=== PATIENT | male | born 1965 | race Caucasian/White ===

== ENCOUNTER 2017-06-27 17:47 | Inpatient (IN) | payer OTHER ==
--- NOTE | 2017-06-27 17:56 | PDOC ---
Rapid Medical Evaluation Time Seen by Provider: 06/27/17 17:50 Medical Evaluation: Allergies Allergy/AdvReac Type Severity Reaction Status Date / Time No Known Allergies Allergy Verified 08/21/16 17:32 06/27/17 17:51 I have performed a brief in-person evaluation of this patient. The patient presents with a chief complaint of: Sent in by PMD, Dr Vee, for admission for IV abx for LLE cellulitis. Pt noticed pain and erythema to LLE this am. No f/c. No recent trauma. H/o NIDDM, chronic wound on plantar aspect of L great toe, Started on augmentin today, took 1 dose so far Pertinent physical exam findings: T of 99.3 w/ HR of 126, NAD, LLE diffusely erythematous/warm and tender, no blister/crepitus. L great toe w/ dressing in place I have ordered the following: labs/xr The patient will proceed to the ED for further evaluation.
[2017-06-27 18:13] LABS: BASO % 0.2 % (0-2.0); EOS % 0.1 % (0-4.5); HEMATOCRIT 46.7 % (35.4-49); HEMOGLOBIN 16.3 GM/dL (11.7-16.9); LYMPH % 7.2 % (8-40); MCH 30.2 pg (25.7-33.7); MCHC 34.9 g/dl (32.0-35.9); MEAN CELL VOLUME 86.7 fl (80-96); MEAN PLT VOLUME 8.1 fl (7.5-11.1); MONO % 8.2 % (3.8-10.2); NEUT % 84.3 % (42.8-82.8); PLATELET COUNT 239 K/MM3 (134-434); RBC 5.38 M/mm3 (4.00-5.60); RDW 13.3 % (11.9-15.9); WHITE BLOOD COUNT 18.3 K/mm3 (4.0-10.0)
[2017-06-27 18:45] LABS: ALBUMIN 3.4 g/dl (3.4-5.0); ALK PHOS 74 U/L (45-117); ANION GAP 14 (8-16); BILIRUBIN,TOTAL 1.9 mg/dL (0.2-1.0); BLOOD UREA NITROGEN 24 mg/dL (7-18); CALCIUM 8.4 mg/dL (8.5-10.1); CHLORIDE 92 mmol/L (98-107); CO2 26 mmol/L (21-32); CREATININE 1.5 mg/dL (0.7-1.3); GLUCOSE,RANDOM 249 mg/dL (74-106); POTASSIUM 4.5 mmol/L (3.5-5.1); SGOT/AST 22 U/L (15-37); SGPT/ALT 35 U/L (12-78); SODIUM 132 mmol/L (136-145); TOT PROT 7.3 g/dl (6.4-8.2)
--- NOTE | 2017-06-27 18:57 | PDOC ---
Attending Attestation - Resident Resident Name: Paige Bryan - ED Attending Attestation I have performed the following: I have examined & evaluated the patient, The case was reviewed & discussed with the resident, I agree w/resident's findings & plan, Exceptions are as noted - HPI HPI: 52 yo M history DM sent by podiatry for admission. He has history of wound to L great toe, states that today he suddenly developed redness to the L lower leg with pain and swelling. No trauma. - Physicial Exam PE: GENERAL: Awake, alert, and fully oriented, in no acute distress HEAD: No signs of trauma EYES: PERRLA, EOMI, sclera anicteric, conjunctiva clear ENT: Auricles normal inspection, hearing grossly normal, nares patent, oropharynx clear without exudates. Moist mucosa NECK: Normal ROM, supple, no lymphadenopathy, JVD, or masses LUNGS: Breath sounds equal, clear to auscultation bilaterally. No wheezes, and no crackles HEART: Tachycardic, normal S1 and S2, no murmurs, rubs or gallops ABDOMEN: Soft, nontender, normoactive bowel sounds. No guarding, no rebound. No masses EXTREMITIES: Normal range of motion, 1+ pitting edema to RLE, 2+ pitting edema with erythema to LLE, +tenderness to LLE. No clubbing or cyanosis. No cords. NEUROLOGICAL: Cranial nerves II through XII grossly intact. Normal speech, normal gait SKIN: Warm, Dry, normal turgor, no rashes. L great toe with malodorous lesion to medial surface, no active drainage. +Macerated tissue. - Medical Decision Making Pt sent by podiatry for LLE cellulitis, will require admission for IV abx.
--- NOTE | 2017-06-27 19:46 | PDOC ---
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 Vee for IV antibiotics for red, swollen, hot right calf in the setting of right plantar hallux ulcer. He notes two days of subjective fever and chills, then he abruptly awoke this morning with right calf, ankle, and foot pain up to 10/10 and burning, worsened with walking or any weight bearing. He has been having a callus on his left great toe debrided by Dr. Vee. The patient otherwise denies any recent symptoms. He has not had recent surgery or immobilization, and has no h/o blood clotting disorders. He denies known h/o MRSA infections. He has had one similar skin infection before, many years ago, which felt the same as his current symptoms. Past History - Past Medical History Allergies/Adverse Reactions: Allergies Allergy/AdvReac Type Severity Reaction Status Date / Time No Known Allergies Allergy Verified 08/21/16 17:32 Home Medications: Ambulatory Orders Lovastatin 40 mg PO DAILY 08/21/16 Metformin HCl [Metformin HCl ER] 1,000 mg PO BID 08/21/16 Montelukast Na [Singulair -] 10 mg PO HS 08/21/16 Quinapril HCl [Accupril] 40 mg PO DAILY 08/21/16 Saxagliptin HCl [Onglyza] 5 mg PO DAILY 08/21/16 Glimepiride 2 mg PO DAILY 06/27/17 Asthma: Yes COPD: No Diabetes: Yes HTN: Yes Hypercholesterolemia: Yes - Suicide/Smoking/Psychosocial Hx Smoking History: Never smoked Review of Systems - Review of Systems Able to Perform ROS?: Yes Constitutional: Yes: Chills, Fever. No: Unexplained wgt Loss HEENTM: No: Nose Congestion, Throat Pain Respiratory: No: Cough, Shortness of Breath Cardiac (ROS): No: Chest Pain, Palpitations ABD/GI: No: Constipated, Diarrhea, Nausea, Vomiting : No: Burning, Dysuria Musculoskeletal: Yes: Other (left lower leg and ankle pain/swelling). No: Back Pain, Neck Pain Integumentary: Yes: Erythema. No: Bruising Neurological: No: Headache, Numbness, Tingling, Weakness, Dizziness Endocrine: No: Unexplained Weight Gain, Unexplained Weight Loss *Physical Exam - Vital Signs Last Vital Signs Temp Pulse Resp BP Pulse Ox 99.3 F 126 H 18 167/94 99 06/27/17 17:53 06/27/17 17:53 06/27/17 17:53 06/27/17 17:53 06/27/17 17:53 - Physical Exam General Appearance: Yes: Nourished, Appropriately Dressed, Obese, Other (Alert, appropriately, friendly adult gentleman who is conversive and answers questions appropriately). No: Apparent Distress HEENT: positive: EOMI, Normal Voice, Hearing Grossly Normal. negative: Scleral Icterus (R), Scleral Icterus (L), Nasal Congestion Neck: positive: Trachea midline, Supple. negative: Tender, Rigid Respiratory/Chest: positive: Lungs Clear, Normal Breath Sounds. negative: Respiratory Distress, Crackles, Rhonchi, Stridor, Wheezing Cardiovascular: positive: Regular Rhythm, Regular Rate. negative: Murmur Vascular Pulses: Dorsalis-Pedis (R): 2+, Doralis-Pedis (L): 2+ Gastrointestinal/Abdominal: positive: Normal Bowel Sounds, Soft, Protuberent. negative: Tender, Organomegaly, Pulsatile Mass, Guarding Musculoskeletal: positive: Normal Inspection. negative: Decreased Range of Motion, Vertebral Tenderness Extremity: positive: Normal Capillary Refill, Normal Inspection, Normal Range of Motion. negative: Tender, Cyanosis Integumentary: positive: Normal Color, Dry, Warm, Other (circumferential warmth tenderness and erythema from left ankle extending [address] to the right knee, left plantar hallux with 3x3cm ulceration with large granulation tissue, no active drainage or bleeding, nonmalodorous). negative: Rash, Bruising Neurologic: positive: chronic manager II-XII NML intact, Fully Oriented, Alert, Normal Mood/ Affect, Normal Response, Motor Strength 5/5 ED Treatment Course - LABORATORY CBC & Chemistry Diagram: 06/27/17 18:06 06/27/17 18:06 - ADDITIONAL ORDERS Additional order review: Laboratory Results 06/27/17 18:06 Sodium 132 L Potassium 4.5 Chloride 92 L Carbon Dioxide 26 Anion Gap 14 BUN 24 H Creatinine 1.5 H Creat Clearance w eGFR 48.77 Random Glucose 249 H Calcium 8.4 L Total Bilirubin 1.9 H AST 22 ALT 35 Alkaline Phosphatase 74 Total Protein 7.3 Albumin 3.4 06/27/17 18:06 RBC 5.38 MCV 86.7 MCHC 34.9 RDW 13.3 MPV 8.1 Neutrophils % 84.3 H Lymphocytes % 7.2 L Monocytes % 8.2 Eosinophils % 0.1 Basophils % 0.2 Medical Decision Making - Medical Decision Making 52 YOM with h/o NIDDM HTN HLD presents instructed by his pipe fitter maintenance for LLE redness/warmth/pain. Substance Abuse Technician instructed him to be admitted for IV antibiotics. On exam he is afebrile, tachycardic but otherwise VS wnl. Alert, conversive, pleasant, NAD, but obvious LLE erythema which is ttp, warm, painful repositioning. Patient also has dressing present left hallux with underlying 3x3cm ulceration, minimal drainage, nonmalodorous. DDX IBNLT cellulitis, osteomyelitis, necrotizing soft tissue infection, sepsis, etc. 06/27/17 20:48 Patient now with fever; lactate ordered. 06/27/17 23:36 WBC 18.3, lactate 2.1, BG 249. Patient given IVF, vancomycin, Zosyn, Ofirmev. [facility] microblogged and admits patient to IP med/surg to Dr. Roberson. *DC/Admit/Observation/Transfer Diagnosis at time of Disposition: THELMA (acute kidney injury) Cellulitis Qualifiers: Site of cellulitis: extremity Site of cellulitis of extremity: lower extremity Laterality: left Qualified Code(s): L03.116 - Cellulitis of left lower limb Sepsis Qualifiers: Sepsis type: sepsis due to unspecified organism Qualified Code(s): A41.9 - Sepsis, unspecified organism Diabetic foot ulcer Qualifiers: Diabetic foot ulcer location: toe Diabetes mellitus type: other specified ( including STACEY) Laterality: left Non-pressure ulcer stage: unspecified non- pressure ulcer stage Qualified Code(s): E13.621 - Other specified diabetes mellitus with foot ulcer; L97.529 - Non-pressure chronic ulcer of other part of left foot with unspecified severity; L97.529 - Non-pressure chronic ulcer of other part of left foot with unspecified severity; L97.529 - Non-pressure chronic ulcer of other part of left foot with unspecified severity; L97.529 - Non-pressure chronic ulcer of other part of left foot with unspecified severity - Discharge Dispostion Condition at time of disposition: Guarded Admit: Yes - Referrals Referrals: ON STAFF,NOT [Primary Care Provider] - - Patient Instructions - Post Discharge Activity
[2017-06-27] MEDS ORDERED: PIPERACIL/TAZOB 3.375 GM 3.375 GM/50 ML PREMIX IVPB ONE (20:40)
[2017-06-27] MEDS ORDERED: ACETAMINOPHEN 1000 MG/100 ML VIAL (NON FORMULARY) IVPB ONE (20:40)
[2017-06-27] MEDS ORDERED: VANCOMYCIN 2,000 MG in DEXTROSE 5%-WATER - 500 ML IVPB ONE (20:47)
[2017-06-27] MEDS ORDERED: SODIUM CHLORIDE 0.9% 1000 ML INFUS.BAG IV STA (20:50)
[2017-06-27] MEDS ORDERED: ACETAMINOPHEN INJECTION 100 ML IVPB ONE (20:53)
[2017-06-27] MEDS ORDERED: PIPERACILLIN/TAZOB 3.375 GM 3.375 GM in DEXTROSE 5%-WATER - 50 ML IVPB ONE (21:00)
[2017-06-27] MEDS ORDERED: PIPERACILLIN/TAZOB 3.375 GM 3.375 GM/50 ML BAG IVPB ONE (21:18)
[2017-06-27 21:29] LABS: INR 1.38 (0.82-1.09); PROTHROMBIN TIME (PATIENT) 15.6 SEC (9.98-11.88)
--- NOTE | 2017-06-28 01:28 | HP ---
CHIEF COMPLAINT: PCP: HISTORY OF PRESENT ILLNESS: The patient is 52 yo m w/ PMH DM, HTN, asthma and HLD who was sent by his supervisor winding department, Dr. Vee, for a red, swollen, hot right calf in the setting of left toe ulcer. The patient states that he awoke this morning to find that his left calf, foot and ankle was swollen, warm, red and tender. In addition to this , he also endorses subjective fever and chills for the past 1 day. The patient describes the pain as 10/10 in intensity, burning, and exacerbated by walking or weight bearing. The patient follows w/ Dr. Vee every 2 weeks for debridement of a chronic callus on his left great toe. He has had one similar skin infection before, "many years ago" and feels that his current symptoms are similar to those he felt during that episode. ER course was notable for: (1) Temp. 102.8, Heart rate 126, WBC 18.3 (2) CXR, foot XR (3) Recent Travel: none PAST MEDICAL HISTORY: see hPI PAST SURGICAL HISTORY: none Social History: Smoking: denies Alcohol: socially Drugs: denies Family History: non-contributory Allergies No Known Allergies Allergy (Verified 08/21/16 17:32) HOME MEDICATIONS: Home Medications Medication Instructions Recorded Lovastatin 40 mg PO DAILY 08/21/16 Metformin HCl [Metformin HCl ER] 1,000 mg PO BID 08/21/16 Montelukast Na [Singulair -] 10 mg PO HS 08/21/16 Quinapril HCl [Accupril] 40 mg PO DAILY 08/21/16 Saxagliptin HCl [Onglyza] 5 mg PO DAILY 08/21/16 Glimepiride 2 mg PO DAILY 06/27/17 REVIEW OF SYSTEMS CONSTITUTIONAL: Absent: diaphoresis, generalized weakness, malaise, loss of appetite, weight change HEENT: Absent: rhinorrhea, nasal congestion, throat pain, throat swelling, difficulty swallowing, mouth swelling, ear pain, eye pain, visual changes CARDIOVASCULAR: Absent: chest pain, syncope, palpitations, irregular heart rate, lightheadedness RESPIRATORY: Absent: cough, shortness of breath, dyspnea with exertion, orthopnea, wheezing, stridor, hemoptysis GASTROINTESTINAL: Absent: abdominal pain, abdominal distension, nausea, vomiting, diarrhea, constipation, melena, hematochezia GENITOURINARY: Absent: dysuria, frequency, urgency, hesitancy, hematuria, flank pain, genital pain MUSCULOSKELETAL: Absent: myalgia, arthralgia, joint swelling, back pain, neck pain SKIN: Absent: itching, pallor HEMATOLOGIC/IMMUNOLOGIC: Absent: easy bleeding, easy bruising, lymphadenopathy, frequent infections ENDOCRINE: Absent: unexplained weight gain, unexplained weight loss, heat intolerance, cold intolerance NEUROLOGIC: Absent: headache, focal weakness or paresthesias, dizziness, unsteady gait, seizure, mental status changes, bladder or bowel incontinence PSYCHIATRIC: Absent: anxiety, depression, suicidal or homicidal ideation, hallucinations. PHYSICAL EXAMINATION Vital Signs - 24 hr 06/27/17 06/27/17 06/28/17 17:53 20:48 01:14 Temperature 99.3 F 102.8 F H 98.0 F Pulse Rate 126 H Pulse Rate [ 126 H 82 Apical] Respiratory 18 20 16 Rate Blood Pressure 167/94 Blood Pressure 133/77 130/72 [Left Arm] O2 Sat by Pulse 99 97 Oximetry (%) GENERAL: Awake, alert, and fully oriented, in no acute distress. HEAD: Normal with no signs of trauma. LUNGS: Breath sounds equal, clear to auscultation bilaterally. No wheezes, and no crackles. No accessory muscle use. HEART: Regular rate and rhythm, normal S1 and S2 without murmur, rub or gallop. ABDOMEN: Soft, nontender, not distended, normoactive bowel sounds, no guarding, no rebound, no masses. No hepatomegaly or splenomegaly. LOWER EXTREMITIES: 2+ pulses, warm, well-perfused. No calf tenderness. 1+ peripheral edema. NEUROLOGICAL: Cranial nerves II-X intact. Normal speech. SKIN: Warm, dry. There is warmth, erythema, redness and swelling over the left foot, ankle and calf. There is an area of broken down skin along the plantar surface of the left great toe with a callus in the center of it. The area immediately surrounding the broken skin is not erythematous. Laboratory Results - last 24 hr 06/27/17 06/27/17 06/27/17 18:06 18:06 21:00 WBC 18.3 H RBC 5.38 Hgb 16.3 Hct 46.7 MCV 86.7 MCH 30.2 MCHC 34.9 RDW 13.3 Plt Count 239 MPV 8.1 Neutrophils % 84.3 H Lymphocytes % 7.2 L Monocytes % 8.2 Eosinophils % 0.1 Basophils % 0.2 PT with INR 15.60 H INR 1.38 H Sodium 132 L Potassium 4.5 Chloride 92 L Carbon Dioxide 26 Anion Gap 14 BUN 24 H Creatinine 1.5 H Creat Clearance w eGFR 48.77 Random Glucose 249 H Lactic Acid Calcium 8.4 L Total Bilirubin 1.9 H AST 22 ALT 35 Alkaline Phosphatase 74 Total Protein 7.3 Albumin 3.4 06/27/17 21:00 WBC RBC Hgb Hct MCV MCH MCHC RDW Plt Count MPV Neutrophils % Lymphocytes % Monocytes % Eosinophils % Basophils % PT with INR INR Sodium Potassium Chloride Carbon Dioxide Anion Gap BUN Creatinine Creat Clearance w eGFR Random Glucose Lactic Acid 2.1 H Calcium Total Bilirubin AST ALT Alkaline Phosphatase Total Protein Albumin ASSESSMENT/PLAN: The patient is a 52 yo m w/ PMH DM, HTN, HLD who is being admitted for sepsis 2/ 2 cellulitis #Sepsis 2/2 cellulitis likely 2/2 DM foot ulcer -s/p Vancomycin, zosyn in ED -s/p 2L NS in ED -NS @ 75 -will continue w/ Zosyn 3.375g Q6 -ID consult #DM -hold oral hypoglycemics -ISS ACHS -BGM ACHS #HTN -c/w home accupril #asthma -c/w home moteleukast -nebs PRN #possible THELMA; unknown baseline -NS@75 #FEN -NS @ 75 -lytes wnl -diabetic diet #Prophy -hep sq 5ku TID #Dispo -admit to med-surg Visit type - Emergency Visit Emergency Visit: Yes ED Registration Date: 06/27/17 Care time: The patient presented to the Emergency Department on the above date and was hospitalized for further evaluation of their emergent condition. - New Patient This patient is new to me today: Yes Date on this admission: 06/28/17 - Critical Care Critical Care patient: No Hospitalist Screening - Colonoscopy Questionnaire Colonoscopy Questionnaire: Colonoscopy Questionnaire - Patient: 50 - 75 years old and never had a screening colonoscopy: Unknown History of colon or rectal polyps, or CA: Unknown History of IBD, Crohn's disease or UC: Unknown History of abdominal radiation therapy as a child: Unknown - Relative: 1 with colon or rectal CA, or polyps at age 60 or younger: Unknown Colon or rectal CA diagnosed at age 45 or younger: Unknown Multiple relatives with colon or rectal CA: Unknown - Outcome: Screening Result: Negative Screen
[2017-06-28] MEDS ORDERED: SODIUM CHLORIDE 1,000 ML IV SCH ×2 (01:30→05:52)
[2017-06-28] MEDS ORDERED: PIPERACILLIN/TAZOB 3.375 GM 50 ML IVPB ONE (02:00)
[2017-06-28] MEDS ORDERED: PIPERACILLIN/TAZOB 3.375 GM 3.375 GM/50 ML BAG IVPB ONE (03:00)
[2017-06-28 05:03] VITALS: BMI 41.8
--- NOTE | 2017-06-28 05:49 | PN ---
Teaching Attending Note Name of Resident: Wiley Osullivan ATTENDING PHYSICIAN STATEMENT I saw and evaluated the patient. I reviewed the resident's note and discussed the case with the resident. I agree with the resident's findings and plan as documented. SUBJECTIVE: OBJECTIVE: ASSESSMENT AND PLAN: #SIRS with Sepsis 2/2 cellulitis likely 2/2 DM foot ulcer -s/p Vancomycin, zosyn in ED -s/p 2L NS in ED -NS @ 75 -will continue w/ Zosyn 3.375g Q6 -ID consult - start the patient on clotrimazole 1% cream for athletes foot #DM -hold oral hypoglycemics -ISS ACHS -BGM ACHS #HTN - hold quinalapril due to THELMA - start the patient on amlodipine 10mg daily #asthma -c/w home moteleukast -nebs PRN #possible THELMA; unknown baseline -150cc/h
[2017-06-28] MEDS: INSULIN SLIDING SCALE (NOVOLOG) 1 VIAL SQ SCH ×4 (06:41→21:02)
[2017-06-28] MEDS: HEPARIN NA (PORCINE) 5,000 UNITS/ML 1ML VIAL SQ SCH ×3 (06:42→21:02)
[2017-06-28] MEDS ORDERED: ACETAMINOPHEN 325 MG TABLET (FP) PO PRN (06:52)
[2017-06-28 08:42] LABS: BASO % 0.2 % (0-2.0); HEMATOCRIT 41.8 % (35.4-49); HEMOGLOBIN 14.5 GM/dL (11.7-16.9); LYMPH % 4.2 % (8-40); MCH 29.8 pg (25.7-33.7); MCHC 34.7 g/dl (32.0-35.9); MEAN CELL VOLUME 85.9 fl (80-96); MEAN PLT VOLUME 8.2 fl (7.5-11.1); MONO % 7.5 % (3.8-10.2); NEUT % 88.1 % (42.8-82.8); PLATELET COUNT 189 K/MM3 (134-434); RBC 4.87 M/mm3 (4.00-5.60); RDW 13.4 % (11.9-15.9)
--- NOTE | 2017-06-28 09:04 | PN ---
Progress Note (short form) - Note Progress Note: ID Full note dictated IDDM morbid obesity chronic toe ulcerations getting debridements per Dr Vee including yesterday when he is admitted for cellulitis with fever Selected Entries 06/27/17 20:48 Temperature 102.8 F H Pulse Rate [ 126 H Apical] Respiratory 20 Rate Blood Pressure 133/77 [Left Arm] O2 Sat by Pulse 97 Oximetry (%) Necrotic hypertrophic callous soft draining pus necrotic overlying skin with erythema Left leg confluent small medial leg ulcer painful Microbiology Laboratory Tests 06/27/17 06/27/17 06/27/17 18:06 18:06 21:00 WBC 18.3 H Hgb 16.3 Plt Count 239 BUN 24 H Creat Clearance w eGFR 48.77 Random Glucose 249 H Lactic Acid 2.1 H Total Bilirubin 1.9 H AST 22 ALT 35 Alkaline Phosphatase 74 06/28/17 00:29 WBC Hgb Plt Count BUN Creat Clearance w eGFR Random Glucose Lactic Acid 2.1 H Total Bilirubin AST ALT Alkaline Phosphatase Microbiology Assessment SSTI left great toe with purulence necrosis and fever with cellulitis Plan Cultures wound blood ESR CRP Vancomycin and Zosyn Will need ( OR?) debridement Erich KELLY Problem List - Problems (1) Cellulitis Code(s): L03.90 - CELLULITIS, UNSPECIFIED Qualifiers: Site of cellulitis: extremity Site of cellulitis of extremity: lower extremity Laterality: left Qualified Code(s): L03.116 - Cellulitis of left lower limb (2) Diabetic foot ulcer Code(s): E11.621 - TYPE 2 DIABETES MELLITUS WITH FOOT ULCER; L97.509 - NON- PRESSURE CHRONIC ULCER OTH PRT UNSP FOOT W UNSP SEVERITY Qualifiers: Diabetic foot ulcer location: toe Diabetes mellitus type: other specified ( including STACEY) Laterality: left Non-pressure ulcer stage: unspecified non- pressure ulcer stage Qualified Code(s): E13.621 - Other specified diabetes mellitus with foot ulcer; L97.529 - Non-pressure chronic ulcer of other part of left foot with unspecified severity; L97.529 - Non-pressure chronic ulcer of other part of left foot with unspecified severity; L97.529 - Non-pressure chronic ulcer of other part of left foot with unspecified severity; L97.529 - Non-pressure chronic ulcer of other part of left foot with unspecified severity (3) Sepsis Code(s): A41.9 - SEPSIS, UNSPECIFIED ORGANISM Qualifiers: Sepsis type: sepsis due to unspecified organism Qualified Code(s): A41.9 - Sepsis, unspecified organism
[2017-06-28 09:10] LABS: ALBUMIN 2.6 g/dl (3.4-5.0); ALK PHOS 62 U/L (45-117); ANION GAP 12 (8-16); BILIRUBIN,TOTAL 1.7 mg/dL (0.2-1.0); BLOOD UREA NITROGEN 17 mg/dL (7-18); CALCIUM 7.5 mg/dL (8.5-10.1); CHLORIDE 96 mmol/L (98-107); CO2 24 mmol/L (21-32); CREATININE 1.2 mg/dL (0.7-1.3); GLUCOSE,RANDOM 243 mg/dL (74-106); PHOSPHOROUS 1.6 mg/dL (2.5-4.9); POTASSIUM 3.8 mmol/L (3.5-5.1); SGOT/AST 22 U/L (15-37); SGPT/ALT 29 U/L (12-78); SODIUM 132 mmol/L (136-145)
--- NOTE | 2017-06-28 09:38 | HOSP ---
Subjective - Review of Symptoms Events since last encounter: Patient is c/o having left LE 09/21. Vital Signs Temperature 98.9 F 06/28/17 05:46 Pulse Rate 86 06/28/17 05:46 Respiratory Rate 17 06/28/17 05:46 Blood Pressure 140/79 06/28/17 05:46 O2 Sat by Pulse Oximetry (%) 97 06/28/17 04:34 GENERAL: Awake, alert, and fully oriented,with mild distress due to his pain HEAD: Normal with no signs of trauma. LUNGS: Breath sounds equal, clear to auscultation bilaterally. No wheezes, and no crackles. No accessory muscle use. HEART: Regular rate and rhythm, normal S1 and S2 , no murmur, rub or gallop. ABDOMEN: Soft, nontender, not distended, normoactive bowel sounds, no guarding, no rebound, no masses. No hepatomegaly or splenomegaly. LOWER EXTREMITIES: 2+ pulses, warm, well-perfused. No calf tenderness. 1+ peripheral edema. NEUROLOGICAL: Cranial nerves II-X intact. Normal speech. SKIN: Warm, dry. There is warmth, erythema, redness and swelling over the left foot, ankle and calf. Broken skin along the plantar surface of the left great toe. CBCD WBC 17.0 K/mm3 (4.0-10.0) H 06/28/17 08:00 RBC 4.87 M/mm3 (4.00-5.60) 06/28/17 08:00 Hgb 14.5 GM/dL (11.7-16.9) D 06/28/17 08:00 Hct 41.8 % (35.4-49) 06/28/17 08:00 MCV 85.9 fl (80-96) 06/28/17 08:00 MCHC 34.7 g/dl (32.0-35.9) 06/28/17 08:00 RDW 13.4 % (11.9-15.9) 06/28/17 08:00 Plt Count 189 K/MM3 (134-434) D 06/28/17 08:00 MPV 8.2 fl (7.5-11.1) 06/28/17 08:00 CMP Sodium 132 mmol/L (136-145) L 06/28/17 08:00 Potassium 3.8 mmol/L (3.5-5.1) 06/28/17 08:00 Chloride 96 mmol/L (98-107) L 06/28/17 08:00 Carbon Dioxide 24 mmol/L (21-32) 06/28/17 08:00 Anion Gap 12 (8-16) 06/28/17 08:00 BUN 17 mg/dL (7-18) D 06/28/17 08:00 Creatinine 1.2 mg/dL (0.7-1.3) 06/28/17 08:00 Creat Clearance w eGFR > 60 (>60) 06/28/17 08:00 Random Glucose 243 mg/dL (74-106) H 06/28/17 08:00 Calcium 7.5 mg/dL (8.5-10.1) L 06/28/17 08:00 Total Bilirubin 1.7 mg/dL (0.2-1.0) H 06/28/17 08:00 AST 22 U/L (15-37) 06/28/17 08:00 ALT 29 U/L (12-78) 06/28/17 08:00 Alkaline Phosphatase 62 U/L (45-117) 06/28/17 08:00 Total Protein 6.0 g/dl (6.4-8.2) L 06/28/17 08:00 Albumin 2.6 g/dl (3.4-5.0) L D 06/28/17 08:00 Current Medications Generic Name Dose Route Start Last Admin Trade Name Freq PRN Reason Stop Dose Admin Acetaminophen 650 mg 06/28/17 13:10 Tylenol - PO Q6H PRN PAIN LEVEL 1 - 3 Heparin Sodium (Porcine) 5,000 unit 06/28/17 06:00 06/28/17 06:42 Heparin - SQ 5,000 unit TID YAHIR Administration Sodium Chloride 1,000 mls @ 150 mls/hr 06/28/17 05:52 06/28/17 13:10 Normal Saline - IV 150 mls/hr ASDIR YAHIR Administration Sodium Phosphate 30 mm/ Sodium 510 mls @ 62.5 mls/hr 06/28/17 13:08 Chloride IVPB 06/28/17 21:17 ONCE ONE Insulin Aspart 1 vial 06/28/17 07:00 06/28/17 12:02 Novolog Vial Sliding Scale - SQ 6 units ACHS YAHIR Administration Protocol Montelukast Sodium 10 mg 06/28/17 22:00 Singulair - PO HS YAHIR Oxycodone HCl 5 mg 06/28/17 13:09 Roxicodone - PO Q6H PRN PAIN LEVEL 4 - 6 Home Medications Medication Instructions Recorded Lovastatin 40 mg PO DAILY 08/21/16 Metformin HCl [Metformin HCl ER] 1,000 mg PO BID 08/21/16 Montelukast Na [Singulair -] 10 mg PO HS 08/21/16 Quinapril HCl [Accupril] 40 mg PO DAILY 08/21/16 Saxagliptin HCl [Onglyza] 5 mg PO DAILY 08/21/16 Glimepiride 2 mg PO DAILY 06/27/17 A/P: The patient is a 52 yo m w/ PMHx of DM, HTN, HLD who is admitted for having sepsis with cellulitis of left LE. #Acute Sepsis with LLE cellulitis of the foot with purulent necrosis on Vancomycin, zosyn as per ID on the case ESR,CRP ordered, Podiatry consult for possible debridement. # T2DM will need close monitoring of his sugar ,will consult Endocrine Dr. Evans , [facility] with BGM, discussed importance of weight loss and the close control of his blood sugar. # Morbid Obesity: nutrition consult , discussed weight loss and diet with the patient. #HTN c/w home accupril #Hx of asthma continue home moteleukast, nebs PRN #THELMA : 1.6-->1.2 creatinine today on IVF will continue at 100cc/hr. #Prophy: hep sq 5ku TID Physical Examination Vital Signs: Vital Signs Temperature 98.9 F 06/28/17 05:46 Pulse Rate 86 06/28/17 05:46 Respiratory Rate 17 06/28/17 05:46 Blood Pressure 140/79 06/28/17 05:46 O2 Sat by Pulse Oximetry (%) 97 06/28/17 04:34 Labs: CBC, BMP 06/28/17 08:00 06/28/17 08:00
[2017-06-28] MEDS ORDERED: QUINAPRIL HCL 40 MG TABLET (FP) PO SCH (10:00)
[2017-06-28] MEDS ORDERED: INSULIN (NOVOLOG) ASPART 100 UNITS/ML 10ML VIAL ONE ×3 (12:00→20:53)
--- NOTE | 2017-06-28 12:28 | CONS ---
DATE OF CONSULTATION: DATE OF DICTATION: 06/28/2017 HISTORY OF PRESENT ILLNESS: This is a 52-year-old insulin-dependent diabetic who I am asked to see for evaluation of fever, a chronic left foot wound, and cellulitis. He has had chronic ulcers of both toes for some time and has been followed by Dr. Vee who has been performing periodic debridements in his podiatric office. Yesterday, he saw Dr. Vee who noted that the patient had cellulitis and did a debridement in the office before sending him to the hospital for evaluation of cellulitis and fever with chills. Nursing note that he had purulent drainage coming from a chronic left great toe wound, and the leg is erythematous going towards the knee. I am asked to see him for further evaluation and treatment. He has no history of recent travel, no HIV risk factors. He is and works at an [employer] in the [place]. He has no pets or unusual hobbies. PAST MEDICAL HISTORY: Includes insulin-dependent diabetes. CURRENT MEDICATIONS: Insulin, dose of Zosyn and vancomycin. ALLERGIES: None known. SOCIAL HISTORY: Denies smoking, substance abuse. He is . HIV status unknown. FAMILY HISTORY: Noncontributory. REVIEW OF SYSTEMS: Respiratory: No cough or shortness of breath. Cardiac: No chest pain, palpitations. History of murmur. Gastrointestinal: No abdominal pain. Positive obesity. No nausea, vomiting, diarrhea. Genitourinary: No dysuria, hematuria, or urinary frequency. PHYSICAL EXAMINATION: Vital signs: Physical examination revealed a heavy-set male, 343 pounds, maximum temperature 102.8, currently afebrile, pulse 86, blood pressure 140/79, respirations 17. Neck: Supple. Lungs: Clear to percussion auscultation. Heart: S1, S2, regular rhythm, without audible murmur. Abdomen: Soft, nontender. Positive bowel sounds. No guarding or rebound. Extremities: Revealed a chronic hypertrophic-appearing callus involving the left great toe, which was soft, with drainage noted and skin necrosis over the callus. No fluctuance or gas was evident. Confluent erythema extending from the foot almost to the knee was present. The white count was 18.3, hemoglobin 16.3, platelets 239. INR 1.38. BUN 24, creatinine 1.5, creatinine clearance 48, lactic acid 2.1, bilirubin 1.9. Liver enzymes otherwise within normal limits. Two sets of blood cultures this morning , no growth. ASSESSMENT: A 52-year-old male insulin-dependent diabetic, with morbid obesity and chronic bilateral great toe ulcerations presents now with infection involving the left great toe with purulent drainage, skin necrosis, and discoloration of the toe, confluent erythema extending from the foot towards the knee with fever and leukocytosis. Patient has been treated with a dose of vancomycin already. He has renal insufficiency. PLAN: He will need further debridement of the wound of the toe with reevaluation for possible underlying osteomyelitis. A lower extremity MRI done in August 30, 2016, of the right foot showed only cellulitis with no osteomyelitis at that time. Will check a vancomycin level today, empirically treat him with Zosyn, order a wound culture, ESR, CRP, and surgical reevaluation for need for debridement. PETER PÉREZ M.D. [id number]
--- NOTE | 2017-06-28 14:19 | CONSULT ---
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 Vee, for a red, swollen, hot left leg in the setting of left big toe ulcer. The patient states that he awoke in the morning with red, swollen and painful left calf, foot and ankle. In addition to this, he also endorses subjective fever and chills for the past 1 day. The patient described the pain as 10/10 in intensity, burning, and exacerbated by walking or weight bearing. The patient follows w/ Dr. Vee every 2 weeks for debridement of a chronic callus on his left great toe. He has had one similar skin infection before, "many years ago" and feels that his current symptoms are similar to those he felt during that episode. Pt admitted and treated with IV abx. Pt found to be hyperglycemic and referred for management. Pt has polyuria, polydipsia and nocturia x4. Drinks a lot of water. FS at home 120 to 125 in the morning. Says last A1c is around 7. No family h/o DM. No paresthesia of feet, No visual symptoms. Last Oph exam about a year ago. - Past Medical History Cardio/Vascular: Yes: HTN Endocrine: Yes: Diabetes Mellitus, Other (HLD) - Smoking History Smoking history: Never smoked Home Medications - Allergies Allergies/Adverse Reactions: Allergies Allergy/AdvReac Type Severity Reaction Status Date / Time No Known Allergies Allergy Verified 08/21/16 17:32 - Home Medications Home Medications: Ambulatory Orders Lovastatin 40 mg PO DAILY 08/21/16 Metformin HCl [Metformin HCl ER] 1,000 mg PO BID 08/21/16 Montelukast Na [Singulair -] 10 mg PO HS 08/21/16 Quinapril HCl [Accupril] 40 mg PO DAILY 08/21/16 Saxagliptin HCl [Onglyza] 5 mg PO DAILY 08/21/16 Glimepiride 2 mg PO DAILY 06/27/17 Family Disease History - Family Disease History Other Family History: No family h/o DM Review of Systems - Review of Systems Constitutional: reports: Malaise Eyes: reports: No Symptoms HENT: reports: No Symptoms Neck: reports: No Symptoms Cardiovascular: reports: No Symptoms Respiratory: reports: No Symptoms Gastrointestinal: reports: No Symptoms Genitourinary: reports: Other (Nocturia) Integumentary: reports: No Symptoms Neurological: reports: No Symptoms Endocrine: reports: No Symptoms Hematology/Lymphatic: reports: No Symptoms Psychiatric: reports: No Symptoms Physical Exam Vital Signs: Vital Signs Temperature 100.4 F H 06/28/17 10:00 Pulse Rate 110 H 06/28/17 10:00 Respiratory Rate 20 06/28/17 10:00 Blood Pressure 136/61 06/28/17 10:00 O2 Sat by Pulse Oximetry (%) 97 06/28/17 04:34 Constitutional: Yes: No Distress, Calm Eyes: Yes: Conjunctiva Clear, EOM Intact HENT: Yes: Atraumatic, Normocephalic Neck: Yes: Supple, Trachea Midline Cardiovascular: Yes: Regular Rate and Rhythm Respiratory: Yes: Regular, CTA Bilaterally Gastrointestinal: Yes: Normal Bowel Sounds, Soft Musculoskeletal: Yes: WNL Extremities: Yes: Erythema (left leg, ulcer left big toe) Labs: CBC, BMP 06/28/17 08:00 06/28/17 08:00 Imaging - Results Chest X-ray: Report Reviewed X-ray: Report Reviewed (left foot) Ultrasound: Report Reviewed (venous doppler, no DVT) Problem List - Problems (1) Cellulitis Code(s): L03.90 - CELLULITIS, UNSPECIFIED Qualifiers: Site of cellulitis: extremity Site of cellulitis of extremity: lower extremity Laterality: left Qualified Code(s): L03.116 - Cellulitis of left lower limb (2) Diabetic foot ulcer Code(s): E11.621 - TYPE 2 DIABETES MELLITUS WITH FOOT ULCER; L97.509 - NON- PRESSURE CHRONIC ULCER OTH PRT UNSP FOOT W UNSP SEVERITY Qualifiers: Diabetic foot ulcer location: toe Diabetes mellitus type: other specified ( including STACEY) Laterality: left Non-pressure ulcer stage: unspecified non- pressure ulcer stage Qualified Code(s): E13.621 - Other specified diabetes mellitus with foot ulcer; L97.529 - Non-pressure chronic ulcer of other part of left foot with unspecified severity; L97.529 - Non-pressure chronic ulcer of other part of left foot with unspecified severity; L97.529 - Non-pressure chronic ulcer of other part of left foot with unspecified severity; L97.529 - Non-pressure chronic ulcer of other part of left foot with unspecified severity Assessment/Plan AP: Left leg Cellulitis Left big toe ulcer T2DM HTN HLD Diet exercise discussed Nutrition consult Levemir 15 units daily at HS Novolog SS coverage IV Abx HBA1c in AM Will hold for oral antidiabetic agents for now
[2017-06-28] MEDS: oxyCODONE HCL 5 MG TABLET PO PRN ×2 (14:53→21:02)
[2017-06-28] MEDS: PIPERACILLIN/TAZOB 4.5 GM 4.5 GM/100 ML BAG IVPB SCH ×2 (15:52→21:01)
[2017-06-28] MEDS ORDERED: SODIUM PHOSPHATE - 30 MM in SODIUM CHLORIDE 500 ML IVPB ONE (16:00)
[2017-06-28] MEDS: VANCOMYCIN 1,750 MG in DEXTROSE 5%-WATER - 500 ML IVPB SCH (16:20)
--- NOTE | 2017-06-28 17:26 | CONSULT ---
Consult Consult Specialty:: Podiatry Reason for Consultation:: Ulceration of bilateral hallux - History of Present Illness Chief Complaint: Swelling, pain, edema in the left lower leg History of Present Illness: Symptoms came on suddenly on 06/26/2017. No history of trauma or unusual occurrence. Patient has been treated in the recent past for ulcerations of both the left and right hallux plantar with wound care and padding but was not taking antibiotics at the time of this incident. - History Source History Provided By: Medical Record - Past Medical History Cardio/Vascular: Yes: HTN Endocrine: Yes: Diabetes Mellitus, Other (HLD) - Smoking History Smoking history: Never smoked Home Medications - Allergies Allergies/Adverse Reactions: Allergies Allergy/AdvReac Type Severity Reaction Status Date / Time No Known Allergies Allergy Verified 08/21/16 17:32 - Home Medications Home Medications: Ambulatory Orders Lovastatin 40 mg PO DAILY 08/21/16 Metformin HCl [Metformin HCl ER] 1,000 mg PO BID 08/21/16 Montelukast Na [Singulair -] 10 mg PO HS 08/21/16 Quinapril HCl [Accupril] 40 mg PO DAILY 08/21/16 Saxagliptin HCl [Onglyza] 5 mg PO DAILY 08/21/16 Glimepiride 2 mg PO DAILY 06/27/17 Family Disease History - Family Disease History Other Family History: No family h/o DM Physical Exam Vital Signs: Vital Signs Temperature 100.2 F H 06/28/17 15:48 Pulse Rate 103 H 06/28/17 15:48 Respiratory Rate 22 06/28/17 15:48 Blood Pressure 146/78 06/28/17 15:48 O2 Sat by Pulse Oximetry (%) 97 06/28/17 04:34 Musculoskeletal: Yes: Other (Note patient has functional hallux limitus that is contributory to bilateral hallux plantar ulceration formation.) Extremities: Yes: Other (left leg shows negative Homen sign and no posterior calf tenderness, but overal lower leg pain on palpation with increased local temp in the leg that does not extend into the foot.) Edema: LLE: 4+ (left medial and pre tibial tense erythmatous edema with increased local temp) Wound/Incision: Yes: Other (left and right hallux wounds are epidermal/dermal in depth with surrounding hyperkeratosis but no sign of edema, erythema, or temp increase in the toe or feet.) Labs: CBC, BMP 06/28/17 08:00 06/28/17 08:00 Imaging - Results X-ray: Image Reviewed (Image reviewed by me left hallux shows no sign of bone erosion or other pathology in the left hallux.) Assessment/Plan Assessment Cellulitis of the lower left leg. It is easy to assign the cause contiguous focus infection from the left hallux wound and that may be the cause, however the left foot and leg do not show any signs of inflammation, tissue damage, or infection. Cellulitis may not be related to the would but may be primary pathology not secondary. MRI may be considerated as X-ray findings were negative for bone pathology in the left hallux. I would expect that MRI of the left and the right hallux ipj will be show bone marrow edema in the interphalangeal joints because of the continuous weight bearing trauma they undergo during ambulation. This is attributed to the patient's functional hallux limitus and not a infectious process. Plan I recommend IV antibiosis as long as possible and continued conservative care of the plantar ulcerations. I expect the cellulitis to resolve shortly at which time I will continue to treat the wounds conservatively. when healing is achieved in the hallux wounds, we will consider elective arthroplasty of the first metatarsal phalangeal joints, one at a time, to remove the mechanical cause of the recurrent hallux ulcerations. Thank you for requesting the consultation. Stanley Vee DPM
[2017-06-28] MEDS ORDERED: PT OWN MED DRAWER 7, Y5N ONE (20:53)
[2017-06-28] MEDS: ACETAMINOPHEN 325 MG TABLET (FP) PO PRN (21:02)
[2017-06-28] MEDS ORDERED: INSULIN DETEMIR 100 UNITS/ML MDV SQ SCH (22:00)
[2017-06-28] MEDS: MONTELUKAST NA 10 MG TABLET PO SCH (22:16)
[2017-06-29] MEDS ORDERED: PT OWN MED DRAWER 7, Y5N ONE ×5 (02:33→19:42)
[2017-06-29] MEDS: PIPERACILLIN/TAZOB 4.5 GM 4.5 GM/100 ML BAG IVPB SCH ×4 (02:56→21:40)
[2017-06-29] MEDS: ACETAMINOPHEN 325 MG TABLET (FP) PO PRN ×4 (02:59→21:45)
[2017-06-29] MEDS: oxyCODONE HCL 5 MG TABLET PO PRN ×4 (02:59→21:46)
[2017-06-29] MEDS: VANCOMYCIN 1,750 MG in DEXTROSE 5%-WATER - 500 ML IVPB SCH ×2 (04:11→16:19)
[2017-06-29] MEDS: HEPARIN NA (PORCINE) 5,000 UNITS/ML 1ML VIAL SQ SCH ×3 (06:42→21:40)
[2017-06-29] MEDS: INSULIN SLIDING SCALE (NOVOLOG) 1 VIAL SQ SCH ×4 (06:42→21:42)
[2017-06-29 07:48] LABS: BASO % 0.1 % (0-2.0); EOS % 0.4 % (0-4.5); HEMATOCRIT 38.3 % (35.4-49); HEMOGLOBIN 13.3 GM/dL (11.7-16.9); LYMPH % 7.5 % (8-40); MCH 30.2 pg (25.7-33.7); MCHC 34.7 g/dl (32.0-35.9); MEAN CELL VOLUME 87.2 fl (80-96); MEAN PLT VOLUME 8.1 fl (7.5-11.1); MONO % 8.5 % (3.8-10.2); NEUT % 83.5 % (42.8-82.8); PLATELET COUNT 167 K/MM3 (134-434); RBC 4.39 M/mm3 (4.00-5.60); RDW 13.2 % (11.9-15.9); WHITE BLOOD COUNT 10.8 K/mm3 (4.0-10.0)
[2017-06-29 08:19] LABS: CHLORIDE 99 mmol/L (98-107); POTASSIUM 3.7 mmol/L (3.5-5.1); SODIUM 134 mmol/L (136-145)
[2017-06-29 08:26] LABS: ALBUMIN 2.3 g/dl (3.4-5.0); ALK PHOS 64 U/L (45-117); ANION GAP 5 (8-16); BILIRUBIN,TOTAL 1.2 mg/dL (0.2-1.0); BLOOD UREA NITROGEN 14 mg/dL (7-18); CALCIUM 7.2 mg/dL (8.5-10.1); CO2 30 mmol/L (21-32); GLUCOSE,RANDOM 241 mg/dL (74-106); MAGNESIUM 2.1 mg/dL (1.8-2.4); PHOSPHOROUS 2.6 mg/dL (2.5-4.9); SGOT/AST 27 U/L (15-37); SGPT/ALT 36 U/L (12-78); TOT PROT 5.5 g/dl (6.4-8.2)
[2017-06-29] MEDS ORDERED: INSULIN (NOVOLOG) ASPART 100 UNITS/ML 10ML VIAL ONE (12:11)
--- NOTE | 2017-06-29 12:13 | PN ---
Progress Note (short form) - Note Progress Note: Feels better Afebrile so far today Blood sugar improving No hypos Vital Signs Period Temp Pulse Resp BP Sys/Sewell Pulse Ox Last 24 Hr 98.6 F-100.2 F 86-103 19-22 146-153/74-78 PE: AOx3 Neck: Supple, No JVD HEENT: PERRL ,EOMI Lungs: CTA CVS: S1S2 Abd: Benign EXT: Left leg erythena Neuro: NO focal deficit CMP Sodium 134 mmol/L (136-145) L 06/29/17 07:02 Potassium 3.7 mmol/L (3.5-5.1) 06/29/17 07:02 Chloride 99 mmol/L (98-107) 06/29/17 07:02 Carbon Dioxide 30 mmol/L (21-32) D 06/29/17 07:02 Anion Gap 5 (8-16) L 06/29/17 07:02 BUN 14 mg/dL (7-18) 06/29/17 07:02 Creatinine 1.0 mg/dL (0.7-1.3) 06/29/17 07:02 Creat Clearance w eGFR > 60 (>60) 06/29/17 07:02 POC Glucometer 209 UNITS (80-120) 06/29/17 11:15 Random Glucose 241 mg/dL (74-106) H 06/29/17 07:02 Hemoglobin A1c % 10.6 % (4.8-6.0) H 06/29/17 07:02 Lactic Acid 2.1 mmol/L (0.0-2.0) H 06/28/17 00:29 Calcium 7.2 mg/dL (8.5-10.1) L 06/29/17 07:02 Phosphorus 2.6 mg/dL (2.5-4.9) D 06/29/17 07:02 Magnesium 2.1 mg/dL (1.8-2.4) 06/29/17 07:02 Total Bilirubin 1.2 mg/dL (0.2-1.0) H D 06/29/17 07:02 AST 27 U/L (15-37) D 06/29/17 07:02 ALT 36 U/L (12-78) D 06/29/17 07:02 Alkaline Phosphatase 64 U/L (45-117) 06/29/17 07:02 C-Reactive Protein 23.2 MG/DL (0.00-0.3) H 06/28/17 15:15 Total Protein 5.5 g/dl (6.4-8.2) L 06/29/17 07:02 Albumin 2.3 g/dl (3.4-5.0) L 06/29/17 07:02 Current Medications Generic Name Dose Route Start Last Admin Trade Name Kane PRN Reason Stop Dose Admin Acetaminophen 650 mg 06/28/17 13:10 06/29/17 09:17 Tylenol - PO 650 mg Q6H PRN Administration PAIN LEVEL 1 - 3 Heparin Sodium (Porcine) 5,000 unit 06/28/17 06:00 06/29/17 06:42 Heparin - SQ 5,000 unit TID YAHIR Administration Sodium Chloride 1,000 mls @ 150 mls/hr 06/28/17 05:52 06/28/17 13:10 Normal Saline - IV 150 mls/hr ASDIR YAHIR Administration Vancomycin HCl 1,750 mg/ 500 mls @ 250 mls/hr 06/28/17 16:00 06/29/17 04:11 Dextrose IVPB 250 mls/hr BID@0400,1600 YAHIR Administration Protocol Piperacillin/Tazobactam/Dextrose 4.5 gm in 100 mls @ 200 mls/hr 06/28/17 15: 00 06/29/17 09:19 Zosyn 4.5gm Ivpb (Premix) IVPB 200 mls/hr Q6H-IV YAHIR Administration Protocol Insulin Aspart 1 vial 06/28/17 22:00 06/28/17 21:02 Novolog Vial Sliding Scale - SQ 2 units HS YAHIR Administration Protocol Insulin Aspart 1 vial 06/28/17 16:30 06/29/17 06:42 Novolog Vial Sliding Scale - SQ 8 units TIDAC YAHIR Administration Protocol Insulin Detemir 15 units 06/28/17 22:00 06/28/17 21:02 Levemir Vial SQ 15 units HS YAHIR Administration Montelukast Sodium 10 mg 06/28/17 22:00 06/28/17 22:16 Singulair - PO 10 mg HS YAHIR Administration Oxycodone HCl 5 mg 06/28/17 13:09 06/29/17 09:17 Roxicodone - PO 5 mg Q6H PRN Administration PAIN LEVEL 4 - 6 AP: Left leg Cellulitis Left big toe ulcer T2DM HTN HLD A1c 10.6 Diet exercise discussed again Explained he porbably has postprandial hyperglycemia which explains his A1c of 10.6 eventhough morning blood sugar at home is in low 100s Discussed option of trying GLP1 and SGLT2 as outpt as these meds may help him lose wt. Pt refuses any surgerical procedure for wt loss. Nutrition consult Increase Levemir 20 units daily at HS Increase Novolog SS coverage IV Abx Will hold for oral antidiabetic agents for now Problem List - Problems (1) Cellulitis Code(s): L03.90 - CELLULITIS, UNSPECIFIED Qualifiers: Site of cellulitis: extremity Site of cellulitis of extremity: lower extremity Laterality: left Qualified Code(s): L03.116 - Cellulitis of left lower limb (2) Diabetic foot ulcer Code(s): E11.621 - TYPE 2 DIABETES MELLITUS WITH FOOT ULCER; L97.509 - NON- PRESSURE CHRONIC ULCER OTH PRT UNSP FOOT W UNSP SEVERITY Qualifiers: Diabetic foot ulcer location: toe Diabetes mellitus type: other specified ( including STACEY) Laterality: left Non-pressure ulcer stage: unspecified non- pressure ulcer stage Qualified Code(s): E13.621 - Other specified diabetes mellitus with foot ulcer; L97.529 - Non-pressure chronic ulcer of other part of left foot with unspecified severity; L97.529 - Non-pressure chronic ulcer of other part of left foot with unspecified severity; L97.529 - Non-pressure chronic ulcer of other part of left foot with unspecified severity; L97.529 - Non-pressure chronic ulcer of other part of left foot with unspecified severity
[2017-06-29] MEDS ORDERED: VANCOMYCIN 2,000 MG in DEXTROSE 5%-WATER - 500 ML IVPB ONE (13:59)
--- NOTE | 2017-06-29 16:08 | PN ---
Physical Exam: SUBJECTIVE: Patient seen and examined. feels the leg is improving. able to stand but develops significant pain with any movement OBJECTIVE: Vital Signs Period Temp Pulse Resp BP Sys/Sewell Pulse Ox Last 24 Hr 98.5 F-100 F 86-101 18-22 140-153/69-78 GENERAL: The patient is awake, alert, and fully oriented, in no acute distress. LUNGS: Breath sounds equal, clear to auscultation bilaterally, no wheezes, no crackles, no accessory muscle use. HEART: Regular rate and rhythm, S1, S2 without murmur, rub or gallop. ABDOMEN: Soft, nontender, nondistended, normoactive bowel sounds, no guarding, no rebound, no hepatosplenomegaly, no masses. NEUROLOGICAL: Cranial nerves II through XII grossly intact. Normal speech, gait not observed. PSYCH: Normal mood, normal affect. LLE swelling, warmth erythema tenderness starts at mid calf and extends to just above the ankle Laboratory Results - last 24 hr 06/28/17 06/28/17 06/28/17 15:15 16:22 21:00 WBC RBC Hgb Hct MCV MCH MCHC RDW Plt Count MPV Neutrophils % Lymphocytes % Monocytes % Eosinophils % Basophils % ESR Sodium Potassium Chloride Carbon Dioxide Anion Gap BUN Creatinine Creat Clearance w eGFR POC Glucometer 194 248 Random Glucose Hemoglobin A1c % Calcium Phosphorus Magnesium Total Bilirubin AST ALT Alkaline Phosphatase C-Reactive Protein 23.2 H Total Protein Albumin 06/29/17 06/29/17 06/29/17 06:39 07:02 07:02 WBC 10.8 H D RBC 4.39 Hgb 13.3 Hct 38.3 MCV 87.2 MCH 30.2 MCHC 34.7 RDW 13.2 Plt Count 167 MPV 8.1 Neutrophils % 83.5 H Lymphocytes % 7.5 L D Monocytes % 8.5 Eosinophils % 0.4 D Basophils % 0.1 ESR 75 H Sodium Potassium Chloride Carbon Dioxide Anion Gap BUN Creatinine Creat Clearance w eGFR POC Glucometer 251 Random Glucose Hemoglobin A1c % Calcium Phosphorus Magnesium Total Bilirubin AST ALT Alkaline Phosphatase C-Reactive Protein Total Protein Albumin 06/29/17 06/29/17 06/29/17 07:02 07:02 11:15 WBC RBC Hgb Hct MCV MCH MCHC RDW Plt Count MPV Neutrophils % Lymphocytes % Monocytes % Eosinophils % Basophils % ESR Sodium 134 L Potassium 3.7 Chloride 99 Carbon Dioxide 30 D Anion Gap 5 L BUN 14 Creatinine 1.0 Creat Clearance w eGFR > 60 POC Glucometer 209 Random Glucose 241 H Hemoglobin A1c % 10.6 H Calcium 7.2 L Phosphorus 2.6 D Magnesium 2.1 Total Bilirubin 1.2 H D AST 27 D ALT 36 D Alkaline Phosphatase 64 C-Reactive Protein Total Protein 5.5 L Albumin 2.3 L Active Medications Generic Name Dose Route Start Last Admin Trade Name Freq PRN Reason Stop Dose Admin Acetaminophen 650 mg 06/28/17 13:10 06/29/17 15:19 Tylenol - PO 650 mg Q6H PRN Administration PAIN LEVEL 1 - 3 Heparin Sodium (Porcine) 5,000 unit 06/28/17 06:00 06/29/17 13:59 Heparin - SQ 5,000 unit TID YAHIR Administration Sodium Chloride 1,000 mls @ 150 mls/hr 06/28/17 05:52 06/28/17 13:10 Normal Saline - IV 150 mls/hr ASDIR YAHIR Administration Vancomycin HCl 1,750 mg/ 500 mls @ 250 mls/hr 06/28/17 16:00 06/29/17 04:11 Dextrose IVPB 250 mls/hr BID@0400,1600 YAHIR Administration Protocol Piperacillin/Tazobactam/Dextrose 4.5 gm in 100 mls @ 200 mls/hr 06/28/17 15: 00 06/29/17 15:19 Zosyn 4.5gm Ivpb (Premix) IVPB 200 mls/hr Q6H-IV YAHIR Administration Protocol Insulin Aspart 1 vial 06/28/17 22:00 06/28/17 21:02 Novolog Vial Sliding Scale - SQ 2 units HS YAHIR Administration Protocol Insulin Aspart 1 vial 06/29/17 12:19 Novolog Vial Sliding Scale - SQ TIDAC YAHIR Protocol Insulin Detemir 20 units 06/29/17 22:00 Levemir Vial SQ HS YAHIR Montelukast Sodium 10 mg 06/28/17 22:00 06/28/17 22:16 Singulair - PO 10 mg HS YAHIR Administration Oxycodone HCl 5 mg 06/28/17 13:09 06/29/17 15:18 Roxicodone - PO 5 mg Q6H PRN Administration PAIN LEVEL 4 - 6 ASSESSMENT/PLAN: 52 DM HTN HLD presents with Sepsis LLE Cellulitis improving on current therapy monior for continued improvement ID following IVF DM2 - Endocrine following, on Insulin Visit type - Emergency Visit Emergency Visit: Yes ED Registration Date: 06/27/17 Care time: The patient presented to the Emergency Department on the above date and was hospitalized for further evaluation of their emergent condition. - New Patient This patient is new to me today: Yes Date on this admission: 06/29/17 - Critical Care Critical Care patient: No
[2017-06-29] MEDS: MONTELUKAST NA 10 MG TABLET PO SCH (21:43)
[2017-06-29] MEDS ORDERED: INSULIN DETEMIR 100 UNITS/ML MDV SQ SCH (22:00)
[2017-06-30] MEDS ORDERED: PT OWN MED DRAWER 7, Y5N ONE ×3 (02:11→15:51)
[2017-06-30] MEDS: PIPERACILLIN/TAZOB 4.5 GM 4.5 GM/100 ML BAG IVPB SCH ×4 (02:47→21:02)
[2017-06-30] MEDS: VANCOMYCIN 1,750 MG in DEXTROSE 5%-WATER - 500 ML IVPB SCH ×2 (04:00→17:39)
[2017-06-30] MEDS: HEPARIN NA (PORCINE) 5,000 UNITS/ML 1ML VIAL SQ SCH ×3 (06:16→21:02)
[2017-06-30] MEDS: INSULIN SLIDING SCALE (NOVOLOG) 1 VIAL SQ SCH ×4 (06:17→21:03)
[2017-06-30 09:02] LABS: BASO % 0.3 % (0-2.0); EOS % 1.2 % (0-4.5); HEMATOCRIT 39.2 % (35.4-49); HEMOGLOBIN 13.5 GM/dL (11.7-16.9); LYMPH % 8.8 % (8-40); MCH 29.8 pg (25.7-33.7); MCHC 34.4 g/dl (32.0-35.9); MEAN CELL VOLUME 86.8 fl (80-96); MEAN PLT VOLUME 8.1 fl (7.5-11.1); MONO % 8.8 % (3.8-10.2); NEUT % 80.9 % (42.8-82.8); PLATELET COUNT 199 K/MM3 (134-434); RBC 4.52 M/mm3 (4.00-5.60); RDW 12.9 % (11.9-15.9); WHITE BLOOD COUNT 9.5 K/mm3 (4.0-10.0)
[2017-06-30 09:34] LABS: ANION GAP 7 (8-16); BLOOD UREA NITROGEN 12 mg/dL (7-18); CALCIUM 7.6 mg/dL (8.5-10.1); CHLORIDE 98 mmol/L (98-107); CO2 29 mmol/L (21-32); GLUCOSE,RANDOM 223 mg/dL (74-106); POTASSIUM 3.5 mmol/L (3.5-5.1); SODIUM 134 mmol/L (136-145)
[2017-06-30] MEDS: oxyCODONE HCL 5 MG TABLET PO PRN ×3 (09:38→23:28)
--- NOTE | 2017-06-30 10:41 | PN ---
Progress Note (short form) - Note Progress Note: Feels better Afebrile Blood sugar improving No hypos C/O Pain left leg Vital Signs Period Temp Pulse Resp BP Sys/Sewell Pulse Ox Last 24 Hr 98.2 F-98.8 F 81-88 18-20 140-149/69-78 PE: AOx3 Neck: Supple, No JVD HEENT: PERRL ,EOMI Lungs: CTA CVS: S1S2 Abd: Benign EXT: Left leg erythena Neuro: NO focal deficit CMP Sodium 134 mmol/L (136-145) L 06/30/17 08:35 Potassium 3.5 mmol/L (3.5-5.1) 06/30/17 08:35 Chloride 98 mmol/L (98-107) 06/30/17 08:35 Carbon Dioxide 29 mmol/L (21-32) 06/30/17 08:35 Anion Gap 7 (8-16) L 06/30/17 08:35 BUN 12 mg/dL (7-18) 06/30/17 08:35 Creatinine 1.0 mg/dL (0.7-1.3) 06/30/17 08:35 Creat Clearance w eGFR > 60 (>60) 06/29/17 07:02 POC Glucometer 212 UNITS (80-120) 06/30/17 06:07 Random Glucose 223 mg/dL (74-106) H 06/30/17 08:35 Hemoglobin A1c % 10.6 % (4.8-6.0) H 06/29/17 07:02 Lactic Acid 2.1 mmol/L (0.0-2.0) H 06/28/17 00:29 Calcium 7.6 mg/dL (8.5-10.1) L 06/30/17 08:35 Phosphorus 2.6 mg/dL (2.5-4.9) D 06/29/17 07:02 Magnesium 2.1 mg/dL (1.8-2.4) 06/29/17 07:02 Total Bilirubin 1.2 mg/dL (0.2-1.0) H D 06/29/17 07:02 AST 27 U/L (15-37) D 06/29/17 07:02 ALT 36 U/L (12-78) D 06/29/17 07:02 Alkaline Phosphatase 64 U/L (45-117) 06/29/17 07:02 C-Reactive Protein 23.2 MG/DL (0.00-0.3) H 06/28/17 15:15 Total Protein 5.5 g/dl (6.4-8.2) L 06/29/17 07:02 Albumin 2.3 g/dl (3.4-5.0) L 06/29/17 07:02 Current Medications Generic Name Dose Route Start Last Admin Trade Name Freq PRN Reason Stop Dose Admin Acetaminophen 650 mg 06/28/17 13:10 06/29/17 21:45 Tylenol - PO 650 mg Q6H PRN Administration PAIN LEVEL 1 - 3 Heparin Sodium (Porcine) 5,000 unit 06/28/17 06:00 06/30/17 06:16 Heparin - SQ 5,000 unit TID YAHIR Administration Sodium Chloride 1,000 mls @ 150 mls/hr 06/28/17 05:52 06/28/17 13:10 Normal Saline - IV 150 mls/hr ASDIR YAHIR Administration Vancomycin HCl 1,750 mg/ 500 mls @ 250 mls/hr 06/28/17 16:00 06/30/17 04:00 Dextrose IVPB 250 mls/hr BID@0400,1600 YAHIR Administration Protocol Piperacillin/Tazobactam/Dextrose 4.5 gm in 100 mls @ 200 mls/hr 06/28/17 15: 00 06/30/17 09:36 Zosyn 4.5gm Ivpb (Premix) IVPB 200 mls/hr Q6H-IV YAHIR Administration Protocol Insulin Aspart 1 vial 06/28/17 22:00 06/29/17 21:42 Novolog Vial Sliding Scale - SQ 2 units HS YAHIR Administration Protocol Insulin Aspart 1 vial 06/29/17 12:19 06/30/17 06:17 Novolog Vial Sliding Scale - SQ 8 units TIDAC YAHIR Administration Protocol Insulin Detemir 20 units 06/29/17 22:00 06/29/17 21:40 Levemir Vial SQ 20 units HS YAHIR Administration Montelukast Sodium 10 mg 06/28/17 22:00 06/29/17 21:43 Singulair - PO 10 mg HS YAHIR Administration Oxycodone HCl 5 mg 06/28/17 13:09 06/30/17 09:38 Roxicodone - PO 5 mg Q6H PRN Administration PAIN LEVEL 4 - 6 AP: Left leg Cellulitis Left big toe ulcer T2DM HTN HLD A1c 10.6 Diet exercise discussed again Explained he porbably has postprandial hyperglycemia which explains his A1c of 10.6 eventhough morning blood sugar at home is in low 100s Discussed option of trying GLP1 and SGLT2 as outpt as these meds may help him lose wt. Pt refuses any surgerical procedure for wt loss. Nutrition consult Increase Levemir 24 units daily at HS Increase Novolog SS coverage IV Abx Will hold for oral antidiabetic agents for now Problem List - Problems (1) Cellulitis Code(s): L03.90 - CELLULITIS, UNSPECIFIED Qualifiers: Site of cellulitis: extremity Site of cellulitis of extremity: lower extremity Laterality: left Qualified Code(s): L03.116 - Cellulitis of left lower limb (2) Diabetic foot ulcer Code(s): E11.621 - TYPE 2 DIABETES MELLITUS WITH FOOT ULCER; L97.509 - NON- PRESSURE CHRONIC ULCER OTH PRT UNSP FOOT W UNSP SEVERITY Qualifiers: Diabetic foot ulcer location: toe Diabetes mellitus type: other specified ( including STACEY) Laterality: left Non-pressure ulcer stage: unspecified non- pressure ulcer stage Qualified Code(s): E13.621 - Other specified diabetes mellitus with foot ulcer; L97.529 - Non-pressure chronic ulcer of other part of left foot with unspecified severity; L97.529 - Non-pressure chronic ulcer of other part of left foot with unspecified severity; L97.529 - Non-pressure chronic ulcer of other part of left foot with unspecified severity; L97.529 - Non-pressure chronic ulcer of other part of left foot with unspecified severity
--- NOTE | 2017-06-30 10:57 | PN ---
Progress Note, Physician - Current Medication List Current Medications: Active Medications Acetaminophen (Tylenol -) 650 mg PO Q6H PRN PRN Reason: PAIN LEVEL 1 - 3 Last Admin: 06/29/17 21:45 Dose: 650 mg Heparin Sodium (Porcine) (Heparin -) 5,000 unit SQ TID YAHIR Last Admin: 06/30/17 06:16 Dose: 5,000 unit Sodium Chloride (Normal Saline -) 1,000 mls @ 150 mls/hr IV ASDIR [facility] Last Admin: 06/28/17 13:10 Dose: 150 mls/hr Vancomycin HCl 1,750 mg/ (Dextrose) 500 mls @ 250 mls/hr IVPB BID@0400,1600 YAHIR PRN Reason: Protocol Last Admin: 06/30/17 04:00 Dose: 250 mls/hr Piperacillin/Tazobactam/Dextrose (Zosyn 4.5gm Ivpb (Premix)) 4.5 gm in 100 mls @ 200 mls/hr IVPB Q6H-IV YAHIR PRN Reason: Protocol Last Admin: 06/30/17 09:36 Dose: 200 mls/hr Insulin Aspart (Novolog Vial Sliding Scale -) 1 vial SQ HS [facility] PRN Reason: Protocol Last Admin: 06/29/17 21:42 Dose: 2 units Insulin Aspart (Novolog Vial Sliding Scale -) 1 vial SQ TIDAC [facility] PRN Reason: Protocol Insulin Detemir (Levemir Vial) 24 units SQ HS [facility] Montelukast Sodium (Singulair -) 10 mg PO HS [facility] Last Admin: 06/29/17 21:43 Dose: 10 mg Oxycodone HCl (Roxicodone -) 5 mg PO Q6H PRN PRN Reason: PAIN LEVEL 4 - 6 Last Admin: 06/30/17 09:38 Dose: 5 mg - Objective Vital Signs: Vital Signs Temperature 98.2 F 06/30/17 10:00 Pulse Rate 81 06/30/17 10:00 Respiratory Rate 20 06/30/17 10:00 Blood Pressure 149/78 06/30/17 10:00 O2 Sat by Pulse Oximetry (%) 97 06/28/17 04:34 Constitutional: Yes: Obese Cardiovascular: Yes: Regular Rate and Rhythm, S1, S2 Respiratory: Yes: WNL, Regular, CTA Bilaterally Gastrointestinal: Yes: WNL, Normal Bowel Sounds, Soft. No: Tenderness Extremities: Yes: Erythema, Other (callous toe) Labs: CBC, BMP 06/30/17 08:35 06/30/17 08:35 INR, PTT INR 1.38 (0.82-1.09) H 06/27/17 21:00 Problem List - Problems (1) Cellulitis Code(s): L03.90 - CELLULITIS, UNSPECIFIED Qualifiers: Site of cellulitis: extremity Site of cellulitis of extremity: lower extremity Laterality: left Qualified Code(s): L03.116 - Cellulitis of left lower limb (2) Diabetic foot ulcer Code(s): E11.621 - TYPE 2 DIABETES MELLITUS WITH FOOT ULCER; L97.509 - NON- PRESSURE CHRONIC ULCER OTH PRT UNSP FOOT W UNSP SEVERITY Qualifiers: Diabetic foot ulcer location: toe Diabetes mellitus type: other specified ( including STACEY) Laterality: left Non-pressure ulcer stage: unspecified non- pressure ulcer stage Qualified Code(s): E13.621 - Other specified diabetes mellitus with foot ulcer; L97.529 - Non-pressure chronic ulcer of other part of left foot with unspecified severity; L97.529 - Non-pressure chronic ulcer of other part of left foot with unspecified severity; L97.529 - Non-pressure chronic ulcer of other part of left foot with unspecified severity; L97.529 - Non-pressure chronic ulcer of other part of left foot with unspecified severity (3) Sepsis Code(s): A41.9 - SEPSIS, UNSPECIFIED ORGANISM Qualifiers: Sepsis type: sepsis due to unspecified organism Qualified Code(s): A41.9 - Sepsis, unspecified organism Assessment/Plan Microbiology 06/27/17 19:26 Blood - Peripheral Venous Blood Culture - Preliminary NO GROWTH OBTAINED AFTER 48 HOURS, INCUBATION TO CONTINUE FOR 3 DAYS. 06/27/17 18:06 Blood - Peripheral Venous Blood Culture - Preliminary NO GROWTH OBTAINED AFTER 48 HOURS, INCUBATION TO CONTINUE FOR 3 DAYS. Laboratory Tests 06/28/17 06/28/17 06/29/17 11:00 15:15 07:02 WBC RBC Plt Count ESR 75 H C-Reactive Protein 21.3 H 23.2 H 06/30/17 08:35 WBC 9.5 RBC 4.52 Plt Count 199 ESR C-Reactive Protein Assessment Severe cellulitis of the leg improving gradually Elevated CRP noted Plan As the suggestion of Dr Vee will treat the cellulitis for now PRevious MRI neg osteo Check Vanco trough level Erich KELLY
--- NOTE | 2017-06-30 12:22 | PN ---
Teaching Attending Note Name of Resident: Wiley Osullivan ATTENDING PHYSICIAN STATEMENT I saw and evaluated the patient. I reviewed the resident's note and discussed the case with the resident. I agree with the resident's findings and plan as documented. SUBJECTIVE: Left leg pain and redness are improving. OBJECTIVE: Vital Signs Period Temp Pulse Resp BP Sys/Sewell Pulse Ox Last 24 Hr 98.2 F-98.8 F 81-88 18-20 140-149/69-78 HEART: S1S2, RRR LUNGS: Clear ABDOMEN: Obese, soft, non-tender, non-distended, normal BS EXTREMITIES: Decreasing erythema of LLE, 2+ edema of LLE Laboratory Results - last 24 hr 06/29/17 06/29/17 06/30/17 16:52 21:39 06:07 WBC RBC Hgb Hct MCV MCH MCHC RDW Plt Count MPV Neutrophils % Lymphocytes % Monocytes % Eosinophils % Basophils % Sodium Potassium Chloride Carbon Dioxide Anion Gap BUN Creatinine POC Glucometer 183 228 212 Random Glucose Calcium 06/30/17 06/30/17 06/30/17 08:35 08:35 11:58 WBC 9.5 RBC 4.52 Hgb 13.5 Hct 39.2 MCV 86.8 MCH 29.8 MCHC 34.4 RDW 12.9 Plt Count 199 MPV 8.1 Neutrophils % 80.9 Lymphocytes % 8.8 Monocytes % 8.8 Eosinophils % 1.2 D Basophils % 0.3 Sodium 134 L Potassium 3.5 Chloride 98 Carbon Dioxide 29 Anion Gap 7 L BUN 12 Creatinine 1.0 POC Glucometer 183 Random Glucose 223 H Calcium 7.6 L Current Medications Generic Name Dose Route Start Last Admin Trade Name Kane PRN Reason Stop Dose Admin Acetaminophen 650 mg 06/28/17 13:10 06/29/17 21:45 Tylenol - PO 650 mg Q6H PRN Administration PAIN LEVEL 1 - 3 Heparin Sodium (Porcine) 5,000 unit 06/28/17 06:00 06/30/17 06:16 Heparin - SQ 5,000 unit TID YAHIR Administration Sodium Chloride 1,000 mls @ 150 mls/hr 06/28/17 05:52 06/28/17 13:10 Normal Saline - IV 150 mls/hr ASDIR YAHIR Administration Vancomycin HCl 1,750 mg/ 500 mls @ 250 mls/hr 06/28/17 16:00 06/30/17 04:00 Dextrose IVPB 250 mls/hr BID@0400,1600 YAHIR Administration Protocol Piperacillin/Tazobactam/Dextrose 4.5 gm in 100 mls @ 200 mls/hr 06/28/17 15: 00 06/30/17 09:36 Zosyn 4.5gm Ivpb (Premix) IVPB 200 mls/hr Q6H-IV YAHIR Administration Protocol Insulin Aspart 1 vial 06/28/17 22:00 06/29/17 21:42 Novolog Vial Sliding Scale - SQ 2 units HS YAHIR Administration Protocol Insulin Aspart 1 vial 06/30/17 11:30 06/30/17 12:14 Novolog Vial Sliding Scale - SQ 8 units TIDAC YAHIR Administration Protocol Insulin Detemir 24 units 06/30/17 22:00 Levemir Vial SQ HS YAHIR Montelukast Sodium 10 mg 06/28/17 22:00 06/29/17 21:43 Singulair - PO 10 mg HS YAHIR Administration Oxycodone HCl 5 mg 06/28/17 13:09 06/30/17 09:38 Roxicodone - PO 5 mg Q6H PRN Administration PAIN LEVEL 4 - 6 ASSESSMENT AND PLAN: This is a 52 year old man with a history of type 2 DM, HTN, hyperlipidemia, asthma, morbid obesity who presented to the ED with a red, swollen left leg. 1. Sepsis secondary to LLE cellulitis - Sepsis resolved - Cellulitis improving - Continue Zosyn, Vancomycin 2. Type 2 DM - Metformin, Amaryl, Onglyza held - Continue Levemir, Novolog sliding scale 3. HTN - Accupril held secondary to THELMA - will resume 4. Acute kidney injury - Resolved 5. Asthma - Stable - Continue Singulair
--- NOTE | 2017-06-30 19:46 | PN ---
Physical Exam: SUBJECTIVE: Patient seen and examined OBJECTIVE: Vital Signs Period Temp Pulse Resp BP Sys/Sewell Pulse Ox Last 24 Hr 98.2 F-99.2 F 81-86 18-20 140-156/72-78 GENERAL: The patient is awake, alert, and fully oriented, in no acute distress. HEAD: Normal with no signs of trauma. EYES: PERRL, extraocular movements intact, sclera anicteric, conjunctiva clear. No ptosis. ENT: Ears normal, nares patent, oropharynx clear without exudates, moist mucous membranes. NECK: Trachea midline, full range of motion, supple. LUNGS: Breath sounds equal, clear to auscultation bilaterally, no wheezes, no crackles, no accessory muscle use. HEART: Regular rate and rhythm, S1, S2 without murmur, rub or gallop. ABDOMEN: Soft, nontender, nondistended, normoactive bowel sounds, no guarding, no rebound, no hepatosplenomegaly, no masses. EXTREMITIES: 2+ pulses, warm, well-perfused, no edema. NEUROLOGICAL: Cranial nerves II through XII grossly intact. Normal speech, gait not observed. PSYCH: Normal mood, normal affect. SKIN: Warm, dry, normal turgor, no rashes or lesions noted Laboratory Results - last 24 hr 06/29/17 06/30/17 06/30/17 21:39 06:07 08:35 WBC 9.5 RBC 4.52 Hgb 13.5 Hct 39.2 MCV 86.8 MCH 29.8 MCHC 34.4 RDW 12.9 Plt Count 199 MPV 8.1 Neutrophils % 80.9 Lymphocytes % 8.8 Monocytes % 8.8 Eosinophils % 1.2 D Basophils % 0.3 Sodium Potassium Chloride Carbon Dioxide Anion Gap BUN Creatinine POC Glucometer 228 212 Random Glucose Calcium Vancomycin Pre-Dose 06/30/17 06/30/17 06/30/17 08:35 11:58 15:25 WBC RBC Hgb Hct MCV MCH MCHC RDW Plt Count MPV Neutrophils % Lymphocytes % Monocytes % Eosinophils % Basophils % Sodium 134 L Potassium 3.5 Chloride 98 Carbon Dioxide 29 Anion Gap 7 L BUN 12 Creatinine 1.0 POC Glucometer 183 Random Glucose 223 H Calcium 7.6 L Vancomycin Pre-Dose 12.989 H 06/30/17 16:40 WBC RBC Hgb Hct MCV MCH MCHC RDW Plt Count MPV Neutrophils % Lymphocytes % Monocytes % Eosinophils % Basophils % Sodium Potassium Chloride Carbon Dioxide Anion Gap BUN Creatinine POC Glucometer 205 Random Glucose Calcium Vancomycin Pre-Dose Active Medications Generic Name Dose Route Start Last Admin Trade Name Freq PRN Reason Stop Dose Admin Acetaminophen 650 mg 06/28/17 13:10 06/29/17 21:45 Tylenol - PO 650 mg Q6H PRN Administration PAIN LEVEL 1 - 3 Heparin Sodium (Porcine) 5,000 unit 06/28/17 06:00 06/30/17 14:57 Heparin - SQ 5,000 unit TID YAHIR Administration Sodium Chloride 1,000 mls @ 150 mls/hr 06/28/17 05:52 06/28/17 13:10 Normal Saline - IV 150 mls/hr ASDIR YAHIR Administration Vancomycin HCl 1,750 mg/ 500 mls @ 250 mls/hr 06/28/17 16:00 06/30/17 17:39 Dextrose IVPB 250 mls/hr BID@0400,1600 YAHIR Administration Protocol Piperacillin/Tazobactam/Dextrose 4.5 gm in 100 mls @ 200 mls/hr 06/28/17 15: 00 06/30/17 15:56 Zosyn 4.5gm Ivpb (Premix) IVPB 200 mls/hr Q6H-IV YAHIR Administration Protocol Insulin Aspart 1 vial 06/28/17 22:00 06/29/17 21:42 Novolog Vial Sliding Scale - SQ 2 units HS YAHIR Administration Protocol Insulin Aspart 1 vial 06/30/17 11:30 06/30/17 16:42 Novolog Vial Sliding Scale - SQ 10 units TIDAC YAHIR Administration Protocol Insulin Detemir 24 units 06/30/17 22:00 Levemir Vial SQ HS YAHIR Montelukast Sodium 10 mg 06/28/17 22:00 06/29/17 21:43 Singulair - PO 10 mg HS YAHIR Administration Oxycodone HCl 5 mg 06/28/17 13:09 06/30/17 15:56 Roxicodone - PO 5 mg Q6H PRN Administration PAIN LEVEL 4 - 6 ASSESSMENT/PLAN: The patient is a 52 yo m w/ PMH DM, HTN, HLD who is being admitted for sepsis 2/ 2 cellulitis #Sepsis 2/2 cellulitis likely 2/2 DM foot ulcer -improved today -ID onboard -Vancomycin -Zosyn 4.5 g Q6H -Vancomycin 1,750 mg BID -Podiatry following #DM -endocrinology onboard -hold oral hypoglycemics -ISS TIDAC -secondary ISS HS -levemir 24 u HS -BGM ACHS #HTN -THELMA resolved, restarting home ACEI #asthma -c/w home motelukast -nebs PRN #possible THELMA- resolved #FEN -NS @ 75 -lytes wnl -diabetic diet #Prophy -hep sq 5ku TID #Dispo -admit to med-surg Visit type - Emergency Visit Emergency Visit: Yes ED Registration Date: 06/27/17 Care time: The patient presented to the Emergency Department on the above date and was hospitalized for further evaluation of their emergent condition. - New Patient This patient is new to me today: No - Critical Care Critical Care patient: No
[2017-06-30] MEDS ORDERED: INSULIN (NOVOLOG) ASPART 100 UNITS/ML 10ML VIAL ONE (20:55)
[2017-06-30] MEDS: MONTELUKAST NA 10 MG TABLET PO SCH (21:02)
[2017-06-30] MEDS ORDERED: INSULIN DETEMIR 100 UNITS/ML MDV SQ SCH (22:00)
[2017-07-01] MEDS ORDERED: PT OWN MED DRAWER 7, Y5N ONE ×5 (01:33→21:15)
[2017-07-01] MEDS: PIPERACILLIN/TAZOB 4.5 GM 4.5 GM/100 ML BAG IVPB SCH ×4 (02:06→21:28)
[2017-07-01] MEDS: VANCOMYCIN 1,750 MG in DEXTROSE 5%-WATER - 500 ML IVPB SCH ×2 (04:26→17:16)
[2017-07-01] MEDS: oxyCODONE HCL 5 MG TABLET PO PRN ×3 (06:05→18:19)
[2017-07-01] MEDS: HEPARIN NA (PORCINE) 5,000 UNITS/ML 1ML VIAL SQ SCH ×3 (06:05→21:29)
[2017-07-01] MEDS: INSULIN SLIDING SCALE (NOVOLOG) 1 VIAL SQ SCH ×4 (06:07→21:29)
[2017-07-01] MEDS ORDERED: INSULIN (NOVOLOG) ASPART 100 UNITS/ML 10ML VIAL ONE ×3 (06:54→21:15)
[2017-07-01 08:29] LABS: HEMATOCRIT 37.2 % (35.4-49); HEMOGLOBIN 12.8 GM/dL (11.7-16.9); MCH 29.9 pg (25.7-33.7); MCHC 34.3 g/dl (32.0-35.9); MEAN CELL VOLUME 87.1 fl (80-96); MEAN PLT VOLUME 8.1 fl (7.5-11.1); PLATELET COUNT 234 K/MM3 (134-434); RBC 4.27 M/mm3 (4.00-5.60); RDW 13.3 % (11.9-15.9)
[2017-07-01 08:48] LABS: CHLORIDE 99 mmol/L (98-107); POTASSIUM 3.3 mmol/L (3.5-5.1); SODIUM 135 mmol/L (136-145)
[2017-07-01 09:04] LABS: ANION GAP 8 (8-16); BLOOD UREA NITROGEN 10 mg/dL (7-18); CALCIUM 7.7 mg/dL (8.5-10.1); CO2 28 mmol/L (21-32); CREATININE 0.9 mg/dL (0.7-1.3); GLUCOSE,RANDOM 170 mg/dL (74-106)
[2017-07-01] MEDS: QUINAPRIL HCL 40 MG TABLET (FP) PO SCH (09:58)
--- NOTE | 2017-07-01 10:43 | PN ---
Progress Note (short form) - Note Progress Note: Feels good Antonio any new complaints Afebrile Blood sugar improving No hypos Vital Signs Period Temp Pulse Resp BP Sys/Sewell Pulse Ox Last 24 Hr 99.0 F-99.5 F 82-87 20-20 134-156/73-83 PE: AOx3 Neck: Supple, No JVD HEENT: PERRL ,EOMI Lungs: CTA CVS: S1S2 Abd: Benign EXT: Left leg erythena Neuro: NO focal deficit CMP Sodium 135 mmol/L (136-145) L 07/01/17 07:00 Potassium 3.3 mmol/L (3.5-5.1) L 07/01/17 07:00 Chloride 99 mmol/L (98-107) 07/01/17 07:00 Carbon Dioxide 28 mmol/L (21-32) 07/01/17 07:00 Anion Gap 8 (8-16) 07/01/17 07:00 BUN 10 mg/dL (7-18) 07/01/17 07:00 Creatinine 0.9 mg/dL (0.7-1.3) 07/01/17 07:00 Creat Clearance w eGFR > 60 (>60) 06/29/17 07:02 POC Glucometer 173 UNITS (80-120) 07/01/17 05:55 Random Glucose 170 mg/dL (74-106) H D 07/01/17 07:00 Hemoglobin A1c % 10.6 % (4.8-6.0) H 06/29/17 07:02 Lactic Acid 2.1 mmol/L (0.0-2.0) H 06/28/17 00:29 Calcium 7.7 mg/dL (8.5-10.1) L 07/01/17 07:00 Phosphorus 2.6 mg/dL (2.5-4.9) D 06/29/17 07:02 Magnesium 2.1 mg/dL (1.8-2.4) 06/29/17 07:02 Total Bilirubin 1.2 mg/dL (0.2-1.0) H D 06/29/17 07:02 AST 27 U/L (15-37) D 06/29/17 07:02 ALT 36 U/L (12-78) D 06/29/17 07:02 Alkaline Phosphatase 64 U/L (45-117) 06/29/17 07:02 C-Reactive Protein 23.2 MG/DL (0.00-0.3) H 06/28/17 15:15 Total Protein 5.5 g/dl (6.4-8.2) L 06/29/17 07:02 Albumin 2.3 g/dl (3.4-5.0) L 06/29/17 07:02 Current Medications Generic Name Dose Route Start Last Admin Trade Name Freq PRN Reason Stop Dose Admin Acetaminophen 650 mg 06/28/17 13:10 06/29/17 21:45 Tylenol - PO 650 mg Q6H PRN Administration PAIN LEVEL 1 - 3 Heparin Sodium (Porcine) 5,000 unit 06/28/17 06:00 07/01/17 06:05 Heparin - SQ 5,000 unit TID YAHIR Administration Vancomycin HCl 1,750 mg/ 500 mls @ 250 mls/hr 06/28/17 16:00 07/01/17 04:26 Dextrose IVPB 250 mls/hr BID@0400,1600 YAHIR Administration Protocol Piperacillin/Tazobactam/Dextrose 4.5 gm in 100 mls @ 200 mls/hr 06/28/17 15: 00 07/01/17 08:52 Zosyn 4.5gm Ivpb (Premix) IVPB 200 mls/hr Q6H-IV YAHIR Administration Protocol Insulin Aspart 1 vial 06/28/17 22:00 06/30/17 21:03 Novolog Vial Sliding Scale - SQ 2 units HS [facility] Administration Protocol Insulin Aspart 1 vial 06/30/17 11:30 07/01/17 06:07 Novolog Vial Sliding Scale - SQ 8 units TIDAC [facility] Administration Protocol Insulin Detemir 24 units 06/30/17 22:00 06/30/17 21:03 Levemir Vial SQ 24 units HS YAHIR Administration Montelukast Sodium 10 mg 06/28/17 22:00 06/30/17 21:02 Singulair - PO 10 mg HS YAHIR Administration Oxycodone HCl 5 mg 06/28/17 13:09 07/01/17 06:05 Roxicodone - PO 5 mg Q6H PRN Administration PAIN LEVEL 4 - 6 Quinapril HCl 40 mg 07/01/17 10:00 07/01/17 09:58 Accupril - PO 40 mg DAILY YAHIR Administration AP: Left leg Cellulitis Left big toe ulcer T2DM HTN HLD A1c 10.6 Diet exercise discussed again Pt refuses any surgerical procedure for wt loss. Increase Levemir 28 units daily at HS Novolog SS coverage IV Abx Will hold for oral antidiabetic agents for now Problem List - Problems (1) Cellulitis Code(s): L03.90 - CELLULITIS, UNSPECIFIED Qualifiers: Site of cellulitis: extremity Site of cellulitis of extremity: lower extremity Laterality: left Qualified Code(s): L03.116 - Cellulitis of left lower limb (2) Diabetic foot ulcer Code(s): E11.621 - TYPE 2 DIABETES MELLITUS WITH FOOT ULCER; L97.509 - NON- PRESSURE CHRONIC ULCER OTH PRT UNSP FOOT W UNSP SEVERITY Qualifiers: Diabetic foot ulcer location: toe Diabetes mellitus type: other specified ( including STACEY) Laterality: left Non-pressure ulcer stage: unspecified non- pressure ulcer stage Qualified Code(s): E13.621 - Other specified diabetes mellitus with foot ulcer; L97.529 - Non-pressure chronic ulcer of other part of left foot with unspecified severity; L97.529 - Non-pressure chronic ulcer of other part of left foot with unspecified severity; L97.529 - Non-pressure chronic ulcer of other part of left foot with unspecified severity; L97.529 - Non-pressure chronic ulcer of other part of left foot with unspecified severity
--- NOTE | 2017-07-01 15:01 | PN ---
Progress Note, Physician Chief Complaint: Reports improvement L LE cellulitis No c/o fever/ chills No adverse rxn to antibiotics - Current Medication List Current Medications: Active Medications Acetaminophen (Tylenol -) 650 mg PO Q6H PRN PRN Reason: PAIN LEVEL 1 - 3 Last Admin: 06/29/17 21:45 Dose: 650 mg Docusate Sodium (Colace -) 100 mg PO DAILY [facility] Heparin Sodium (Porcine) (Heparin -) 5,000 unit SQ TID [facility] Last Admin: 07/01/17 14:42 Dose: 5,000 unit Vancomycin HCl 1,750 mg/ (Dextrose) 500 mls @ 250 mls/hr IVPB BID@0400,1600 YAHIR PRN Reason: Protocol Last Admin: 07/01/17 04:26 Dose: 250 mls/hr Piperacillin/Tazobactam/Dextrose (Zosyn 4.5gm Ivpb (Premix)) 4.5 gm in 100 mls @ 200 mls/hr IVPB Q6H-IV YAHIR PRN Reason: Protocol Last Admin: 07/01/17 14:42 Dose: 200 mls/hr Insulin Aspart (Novolog Vial Sliding Scale -) 1 vial SQ HS [facility] PRN Reason: Protocol Last Admin: 06/30/17 21:03 Dose: 2 units Insulin Aspart (Novolog Vial Sliding Scale -) 1 vial SQ TIDAC [facility] PRN Reason: Protocol Last Admin: 07/01/17 12:08 Dose: 10 units Insulin Detemir (Levemir Vial) 28 units SQ HS [facility] Montelukast Sodium (Singulair -) 10 mg PO [facility] Last Admin: 06/30/17 21:02 Dose: 10 mg Oxycodone HCl (Roxicodone -) 10 mg PO Q6H PRN PRN Reason: PAIN LEVEL 4 - 6 Quinapril HCl (Accupril -) 40 mg PO DAILY [facility] Last Admin: 07/01/17 09:58 Dose: 40 mg - Objective Vital Signs: Vital Signs Temperature 98.4 F 07/01/17 14:35 Pulse Rate 79 07/01/17 14:35 Respiratory Rate 20 07/01/17 10:00 Blood Pressure 153/84 07/01/17 14:35 O2 Sat by Pulse Oximetry (%) 97 06/28/17 04:34 Constitutional: Yes: No Distress Eyes: Yes: Conjunctiva Clear Cardiovascular: Yes: Regular Rate and Rhythm, S1, S2 Respiratory: Yes: CTA Bilaterally Gastrointestinal: Yes: Normal Bowel Sounds, Soft. No: Tenderness Extremities: Yes: Other (+ confluent erythema/ warmth L LE No lymphangitis) Edema: Yes Edema: LLE: 1+, RLE: 1+ Labs: CBC, BMP 07/01/17 07:00 07/01/17 07:00 INR, PTT INR 1.38 (0.82-1.09) H 06/27/17 21:00 Assessment/Plan Cellulitis L LE Fever/ leukocytosis- improved Continue zosyn/ vancomycin Elevation
--- NOTE | 2017-07-01 16:47 | PN ---
Teaching Attending Note Name of Resident: Wiley Osullivan ATTENDING PHYSICIAN STATEMENT I saw and evaluated the patient. I reviewed the resident's note and discussed the case with the resident. I agree with the resident's findings and plan as documented. SUBJECTIVE: The patient reports pain in his left leg when he stands. OBJECTIVE: Vital Signs Period Temp Pulse Resp BP Sys/Sewell Pulse Ox Last 24 Hr 98.4 F-99.5 F 79-87 20-20 134-153/73-84 HEART: S1S2, RRR LUNGS: Clear ABDOMEN: Obese, soft, non-tender, non-distended, normal BS EXTREMITIES: Erythema of LLE continues to improve, lower left leg is warm, 1+ edema of LLE Laboratory Results - last 24 hr 06/30/17 06/30/17 06/30/17 15:25 16:40 20:50 WBC RBC Hgb Hct MCV MCH MCHC RDW Plt Count MPV Sodium Potassium Chloride Carbon Dioxide Anion Gap BUN Creatinine POC Glucometer 205 230 Random Glucose Calcium Vancomycin Pre-Dose 12.989 H 07/01/17 07/01/17 07/01/17 05:55 07:00 07:00 WBC 10.0 RBC 4.27 Hgb 12.8 Hct 37.2 MCV 87.1 MCH 29.9 MCHC 34.3 RDW 13.3 Plt Count 234 MPV 8.1 Sodium 135 L Potassium 3.3 L Chloride 99 Carbon Dioxide 28 Anion Gap 8 BUN 10 Creatinine 0.9 POC Glucometer 173 Random Glucose 170 H D Calcium 7.7 L Vancomycin Pre-Dose 07/01/17 11:12 WBC RBC Hgb Hct MCV MCH MCHC RDW Plt Count MPV Sodium Potassium Chloride Carbon Dioxide Anion Gap BUN Creatinine POC Glucometer 168 Random Glucose Calcium Vancomycin Pre-Dose Current Medications Generic Name Dose Route Start Last Admin Trade Name Freq PRN Reason Stop Dose Admin Acetaminophen 650 mg 06/28/17 13:10 06/29/17 21:45 Tylenol - PO 650 mg Q6H PRN Administration PAIN LEVEL 1 - 3 Docusate Sodium 100 mg 07/02/17 10:00 Colace - PO DAILY YAHIR Heparin Sodium (Porcine) 5,000 unit 06/28/17 06:00 07/01/17 14:42 Heparin - SQ 5,000 unit TID YAHIR Administration Vancomycin HCl 1,750 mg/ 500 mls @ 250 mls/hr 06/28/17 16:00 07/01/17 04:26 Dextrose IVPB 250 mls/hr BID@0400,1600 YAHIR Administration Protocol Piperacillin/Tazobactam/Dextrose 4.5 gm in 100 mls @ 200 mls/hr 06/28/17 15: 00 07/01/17 14:42 Zosyn 4.5gm Ivpb (Premix) IVPB 200 mls/hr Q6H-IV YAHIR Administration Protocol Insulin Aspart 1 vial 06/28/17 22:00 06/30/17 21:03 Novolog Vial Sliding Scale - SQ 2 units HS YAHIR Administration Protocol Insulin Aspart 1 vial 07/01/17 11:45 07/01/17 12:08 Novolog Vial Sliding Scale - SQ 10 units TIDAC YAHIR Administration Protocol Insulin Detemir 28 units 07/01/17 22:00 Levemir Vial SQ HS YAHIR Montelukast Sodium 10 mg 06/28/17 22:00 06/30/17 21:02 Singulair - PO 10 mg HS YAHIR Administration Oxycodone HCl 10 mg 07/01/17 14:17 Roxicodone - PO Q6H PRN PAIN LEVEL 4 - 6 Quinapril HCl 40 mg 07/01/17 10:00 07/01/17 09:58 Accupril - PO 40 mg DAILY YAHIR Administration ASSESSMENT AND PLAN: This is a 52 year old man with a history of type 2 DM, HTN, hyperlipidemia, asthma, morbid obesity who presented to the ED with a red, swollen left leg. 1. Sepsis secondary to LLE cellulitis - Sepsis resolved - Cellulitis continues to improve - Continue Zosyn, Vancomycin 2. Type 2 DM - Metformin, Amaryl, Onglyza held - Continue Levemir, Novolog sliding scale 3. HTN - Accupril restarted 4. Acute kidney injury - Resolved 5. Asthma - Stable - Continue Singulair
[2017-07-01] MEDS ORDERED: POTASSIUM CHLORIDE TABS 20 MEQ TABLET.ER (FP) PO ONE (18:30)
--- NOTE | 2017-07-01 20:44 | PN ---
Physical Exam: SUBJECTIVE: Patient seen and examined at bedside. No fevers overnight. Patient states that rash is getting better. OBJECTIVE: Vital Signs Period Temp Pulse Resp BP Sys/Sewell Pulse Ox Last 24 Hr 98.4 F-99.5 F 79-87 20-20 134-153/73-84 GENERAL: The patient is awake, alert, and fully oriented, in no acute distress. LUNGS: Breath sounds equal, clear to auscultation bilaterally, no wheezes, no crackles, no accessory muscle use. HEART: Regular rate and rhythm, S1, S2 without murmur, rub or gallop. ABDOMEN: Soft, nontender, nondistended, normoactive bowel sounds, no guarding, no rebound, no hepatosplenomegaly, no masses. EXTREMITIES: 2+ pulses, warm, well-perfused, no edema. NEUROLOGICAL: Cranial nerves II through X grossly intact. Normal speech, gait not observed. SKIN: Warm, dry, normal turgor, no rashes or lesions noted Laboratory Results - last 24 hr 06/30/17 07/01/17 07/01/17 20:50 05:55 07:00 WBC 10.0 RBC 4.27 Hgb 12.8 Hct 37.2 MCV 87.1 MCH 29.9 MCHC 34.3 RDW 13.3 Plt Count 234 MPV 8.1 Sodium Potassium Chloride Carbon Dioxide Anion Gap BUN Creatinine POC Glucometer 230 173 Random Glucose Calcium 07/01/17 07/01/17 07/01/17 07:00 11:12 17:10 WBC RBC Hgb Hct MCV MCH MCHC RDW Plt Count MPV Sodium 135 L Potassium 3.3 L Chloride 99 Carbon Dioxide 28 Anion Gap 8 BUN 10 Creatinine 0.9 POC Glucometer 168 141 Random Glucose 170 H D Calcium 7.7 L Active Medications Generic Name Dose Route Start Last Admin Trade Name Freq PRN Reason Stop Dose Admin Acetaminophen 650 mg 06/28/17 13:10 06/29/17 21:45 Tylenol - PO 650 mg Q6H PRN Administration PAIN LEVEL 1 - 3 Docusate Sodium 100 mg 07/02/17 10:00 Colace - PO DAILY YAHIR Heparin Sodium (Porcine) 5,000 unit 06/28/17 06:00 07/01/17 14:42 Heparin - SQ 5,000 unit TID YAHIR Administration Vancomycin HCl 1,750 mg/ 500 mls @ 250 mls/hr 06/28/17 16:00 07/01/17 17:16 Dextrose IVPB 250 mls/hr BID@0400,1600 Y[facility] Administration Protocol Piperacillin/Tazobactam/Dextrose 4.5 gm in 100 mls @ 200 mls/hr 06/28/17 15: 00 07/01/17 14:42 Zosyn 4.5gm Ivpb (Premix) IVPB 200 mls/hr Q6H-IV YAHIR Administration Protocol Insulin Aspart 1 vial 06/28/17 22:00 06/30/17 21:03 Novolog Vial Sliding Scale - SQ 2 units HS YAHIR Administration Protocol Insulin Aspart 1 vial 07/01/17 11:45 07/01/17 17:16 Novolog Vial Sliding Scale - SQ 6 units TIDAC YAH[facility] Administration Protocol Insulin Detemir 28 units 07/01/17 22:00 Levemir Vial SQ HS Y[facility]IR Montelukast Sodium 10 mg 06/28/17 22:00 06/30/17 21:02 Singulair - PO 10 mg HS Y[facility]IR Administration Oxycodone HCl 10 mg 07/01/17 14:17 07/01/17 18:19 Roxicodone - PO 10 mg Q6H PRN Administration PAIN LEVEL 4 - 6 Quinapril HCl 40 mg 07/01/17 10:00 07/01/17 09:58 Accupril - PO 40 mg DAILY YAH[facility] Administration ASSESSMENT/PLAN: The patient is a 52 yo m w/ PMH DM, HTN, HLD who is being admitted for sepsis 2/ 2 cellulitis #Sepsis 2/2 cellulitis likely 2/2 DM foot ulcer -erythema continues to improve -ID onboard -Zosyn 4.5 g Q6H -Vancomycin 1,750 mg BID -vanco trough tomorrow AM -Podiatry following #DM -endocrinology onboard -hold oral hypoglycemics -ISS TIDAC -secondary ISS HS -levemir increased to 28u HS -BGM ACHS #HTN -c/w home quinapril 40 #asthma -c/w home motelukast -nebs PRN #possible THELMA- resolved #FEN -NS @ 75 -K+ 3.3; repleted -diabetic diet #Prophy -hep sq 5ku TID #Dispo -admit to med-surg Visit type - Emergency Visit Emergency Visit: Yes ED Registration Date: 06/27/17 Care time: The patient presented to the Emergency Department on the above date and was hospitalized for further evaluation of their emergent condition. - New Patient This patient is new to me today: No - Critical Care Critical Care patient: No
[2017-07-01] MEDS: MONTELUKAST NA 10 MG TABLET PO SCH (21:29)
[2017-07-01] MEDS ORDERED: INSULIN DETEMIR 100 UNITS/ML MDV SQ SCH (22:00)
[2017-07-02] MEDS: oxyCODONE HCL 5 MG TABLET PO PRN ×4 (00:03→21:42)
[2017-07-02] MEDS: ACETAMINOPHEN 325 MG TABLET (FP) PO PRN ×4 (00:05→21:42)
[2017-07-02] MEDS ORDERED: PT OWN MED DRAWER 7, Y5N ONE ×4 (01:58→21:10)
[2017-07-02] MEDS: PIPERACILLIN/TAZOB 4.5 GM 4.5 GM/100 ML BAG IVPB SCH ×4 (02:20→21:36)
[2017-07-02] MEDS: VANCOMYCIN 1,750 MG in DEXTROSE 5%-WATER - 500 ML IVPB SCH ×2 (04:03→15:27)
[2017-07-02] MEDS: HEPARIN NA (PORCINE) 5,000 UNITS/ML 1ML VIAL SQ SCH ×3 (06:02→21:35)
[2017-07-02] MEDS: INSULIN SLIDING SCALE (NOVOLOG) 1 VIAL SQ SCH ×4 (06:04→21:35)
--- NOTE | 2017-07-02 08:25 | PN ---
Progress Note, Physician Chief Complaint: ID Vancomycin Zosyn Definitely improving though draining greenish material from calf - Current Medication List Current Medications: Active Medications Acetaminophen (Tylenol -) 650 mg PO Q6H PRN PRN Reason: PAIN LEVEL 1 - 3 Last Admin: 07/02/17 06:01 Dose: 650 mg Docusate Sodium (Colace -) 100 mg PO DAILY [facility] Heparin Sodium (Porcine) (Heparin -) 5,000 unit SQ TID [facility] Last Admin: 07/02/17 06:02 Dose: 5,000 unit Vancomycin HCl 1,750 mg/ (Dextrose) 500 mls @ 250 mls/hr IVPB BID@0400,1600 YAHIR PRN Reason: Protocol Last Admin: 07/02/17 04:03 Dose: 250 mls/hr Piperacillin/Tazobactam/Dextrose (Zosyn 4.5gm Ivpb (Premix)) 4.5 gm in 100 mls @ 200 mls/hr IVPB Q6H-IV YAHIR PRN Reason: Protocol Last Admin: 07/02/17 02:20 Dose: 200 mls/hr Insulin Aspart (Novolog Vial Sliding Scale -) 1 vial SQ [facility] PRN Reason: Protocol Last Admin: 07/01/17 21:29 Dose: Not Given Insulin Aspart (Novolog Vial Sliding Scale -) 1 vial SQ TIDAC [facility] PRN Reason: Protocol Last Admin: 07/02/17 06:04 Dose: 6 units Insulin Detemir (Levemir Vial) 28 units SQ [facility] Last Admin: 07/01/17 21:28 Dose: 28 units Montelukast Sodium (Singulair -) 10 mg PO [facility] Last Admin: 07/01/17 21:29 Dose: 10 mg Oxycodone HCl (Roxicodone -) 10 mg PO Q6H PRN PRN Reason: PAIN LEVEL 4 - 6 Last Admin: 07/02/17 06:01 Dose: 10 mg Quinapril HCl (Accupril -) 40 mg PO DAILY [facility] Last Admin: 07/01/17 09:58 Dose: 40 mg - Objective Vital Signs: Vital Signs Temperature 98.1 F 07/02/17 05:50 Pulse Rate 79 07/02/17 05:50 Respiratory Rate 18 07/02/17 05:50 Blood Pressure 155/69 07/02/17 05:50 O2 Sat by Pulse Oximetry (%) 97 03/17/18 04:34 Constitutional: Yes: No Distress, Obese Cardiovascular: Yes: S1, S2 Respiratory: Yes: WNL, Regular, CTA Bilaterally Gastrointestinal: Yes: Soft. No: Tenderness Extremities: Yes: Erythema, Other (Resolvng gradually large blister draining) Labs: CBC, BMP 07/01/17 07:00 07/01/17 07:00 INR, PTT INR 1.38 (0.82-1.09) H 06/27/17 21:00 Problem List - Problems (1) Cellulitis Code(s): L03.90 - CELLULITIS, UNSPECIFIED Qualifiers: Site of cellulitis: extremity Site of cellulitis of extremity: lower extremity Laterality: left Qualified Code(s): L03.116 - Cellulitis of left lower limb (2) Diabetic foot ulcer Code(s): E11.621 - TYPE 2 DIABETES MELLITUS WITH FOOT ULCER; L97.509 - NON- PRESSURE CHRONIC ULCER OTH PRT UNSP FOOT W UNSP SEVERITY Qualifiers: Diabetic foot ulcer location: toe Diabetes mellitus type: other specified ( including STACEY) Laterality: left Non-pressure ulcer stage: unspecified non- pressure ulcer stage Qualified Code(s): E13.621 - Other specified diabetes mellitus with foot ulcer; L97.529 - Non-pressure chronic ulcer of other part of left foot with unspecified severity; L97.529 - Non-pressure chronic ulcer of other part of left foot with unspecified severity; L97.529 - Non-pressure chronic ulcer of other part of left foot with unspecified severity; L97.529 - Non-pressure chronic ulcer of other part of left foot with unspecified severity (3) Sepsis Code(s): A41.9 - SEPSIS, UNSPECIFIED ORGANISM Qualifiers: Sepsis type: sepsis due to unspecified organism Qualified Code(s): A41.9 - Sepsis, unspecified organism Assessment/Plan Laboratory Tests 06/28/17 06/29/17 06/30/17 15:15 07:02 15:25 WBC Hgb Plt Count ESR 75 H C-Reactive Protein 23.2 H Vancomycin Pre-Dose 12.989 H 07/01/17 07:00 WBC 10.0 Hgb 12.8 Plt Count 234 ESR C-Reactive Protein Vancomycin Pre-Dose Assessment Empiric therapy for severe cellulitis improving Plan Would continue Vancomycin and Zosyn for another few days Erich KELLY
[2017-07-02 08:43] LABS: HEMATOCRIT 38.5 % (35.4-49); HEMOGLOBIN 13.1 GM/dL (11.7-16.9); MCH 29.8 pg (25.7-33.7); MEAN CELL VOLUME 87.7 fl (80-96); MEAN PLT VOLUME 8.6 fl (7.5-11.1); RBC 4.39 M/mm3 (4.00-5.60); RDW 13.6 % (11.9-15.9); WHITE BLOOD COUNT 12.3 K/mm3 (4.0-10.0)
--- NOTE | 2017-07-02 08:59 | PN ---
Progress Note (short form) - Note Progress Note: Feels good Has drainage from left leg Afebrile Blood sugar improving No hypos Vital Signs Period Temp Pulse Resp BP Sys/Sewell Pulse Ox Last 24 Hr 98.1 F-99.6 F 79-82 18-20 134-160/69-84 PE: AOx3 Neck: Supple, No JVD HEENT: PERRL ,EOMI Lungs: CTA CVS: S1S2 Abd: Benign EXT: Left leg erythena, drainage from left calf Neuro: NO focal deficit CMP Sodium 135 mmol/L (136-145) L 07/01/17 07:00 Potassium 3.3 mmol/L (3.5-5.1) L 07/01/17 07:00 Chloride 99 mmol/L (98-107) 07/01/17 07:00 Carbon Dioxide 28 mmol/L (21-32) 07/01/17 07:00 Anion Gap 8 (8-16) 07/01/17 07:00 BUN 10 mg/dL (7-18) 07/01/17 07:00 Creatinine 0.9 mg/dL (0.7-1.3) 07/01/17 07:00 Creat Clearance w eGFR > 60 (>60) 06/29/17 07:02 POC Glucometer 171 UNITS (80-120) 07/02/17 06:00 Random Glucose 170 mg/dL (74-106) H D 07/01/17 07:00 Hemoglobin A1c % 10.6 % (4.8-6.0) H 06/29/17 07:02 Lactic Acid 2.1 mmol/L (0.0-2.0) H 06/28/17 00:29 Calcium 7.7 mg/dL (8.5-10.1) L 07/01/17 07:00 Phosphorus 2.6 mg/dL (2.5-4.9) D 06/29/17 07:02 Magnesium 2.1 mg/dL (1.8-2.4) 06/29/17 07:02 Total Bilirubin 1.2 mg/dL (0.2-1.0) H D 06/29/17 07:02 AST 27 U/L (15-37) D 06/29/17 07:02 ALT 36 U/L (12-78) D 06/29/17 07:02 Alkaline Phosphatase 64 U/L (45-117) 06/29/17 07:02 C-Reactive Protein 23.2 MG/DL (0.00-0.3) H 06/28/17 15:15 Total Protein 5.5 g/dl (6.4-8.2) L 06/29/17 07:02 Albumin 2.3 g/dl (3.4-5.0) L 06/29/17 07:02 Current Medications Generic Name Dose Route Start Last Admin Trade Name Freq PRN Reason Stop Dose Admin Acetaminophen 650 mg 06/28/17 13:10 07/02/17 06:01 Tylenol - PO 650 mg Q6H PRN Administration PAIN LEVEL 1 - 3 Docusate Sodium 100 mg 07/02/17 10:00 Colace - PO DAILY [facility] Heparin Sodium (Porcine) 5,000 unit 06/28/17 06:00 07/02/17 06:02 Heparin - SQ 5,000 unit TID YAHIR Administration Vancomycin HCl 1,750 mg/ 500 mls @ 250 mls/hr 06/28/17 16:00 07/02/17 04:03 Dextrose IVPB 250 mls/hr BID@0400,1600 YAHIR Administration Protocol Piperacillin/Tazobactam/Dextrose 4.5 gm in 100 mls @ 200 mls/hr 06/28/17 15: 00 07/02/17 02:20 Zosyn 4.5gm Ivpb (Premix) IVPB 200 mls/hr Q6H-IV YAHIR Administration Protocol Insulin Aspart 1 vial 06/28/17 22:00 07/01/17 21:29 Novolog Vial Sliding Scale - SQ Not Given [facility] Protocol Insulin Aspart 1 vial 07/01/17 11:45 07/02/17 06:04 Novolog Vial Sliding Scale - SQ 6 units TIDAC [facility] Administration Protocol Insulin Detemir 28 units 07/01/17 22:00 07/01/17 21:28 Levemir Vial SQ 28 units HS [facility] Administration Montelukast Sodium 10 mg 06/28/17 22:00 07/01/17 21:29 Singulair - PO 10 mg HS YAHIR Administration Oxycodone HCl 10 mg 07/01/17 14:17 07/02/17 06:01 Roxicodone - PO 10 mg Q6H PRN Administration PAIN LEVEL 4 - 6 Quinapril HCl 40 mg 07/01/17 10:00 07/01/17 09:58 Accupril - PO 40 mg DAILY YAHIR Administration AP: Left leg Cellulitis with drainage Left big toe ulcer T2DM HTN HLD A1c 10.6 Diet exercise discussed again Pt refuses any surgerical procedure for wt loss. Increase Levemir 32 units daily at HS Novolog SS coverage IV Abx Will hold oral antidiabetic agents for now Pt says his does Insulin pen injections and will learn from her to do it at home Pt understands he will be going home on Insulin Problem List - Problems (1) Cellulitis Code(s): L03.90 - CELLULITIS, UNSPECIFIED Qualifiers: Site of cellulitis: extremity Site of cellulitis of extremity: lower extremity Laterality: left Qualified Code(s): L03.116 - Cellulitis of left lower limb (2) Diabetic foot ulcer Code(s): E11.621 - TYPE 2 DIABETES MELLITUS WITH FOOT ULCER; L97.509 - NON- PRESSURE CHRONIC ULCER OTH PRT UNSP FOOT W UNSP SEVERITY Qualifiers: Diabetic foot ulcer location: toe Diabetes mellitus type: other specified ( including STACEY) Laterality: left Non-pressure ulcer stage: unspecified non- pressure ulcer stage Qualified Code(s): E13.621 - Other specified diabetes mellitus with foot ulcer; L97.529 - Non-pressure chronic ulcer of other part of left foot with unspecified severity; L97.529 - Non-pressure chronic ulcer of other part of left foot with unspecified severity; L97.529 - Non-pressure chronic ulcer of other part of left foot with unspecified severity; L97.529 - Non-pressure chronic ulcer of other part of left foot with unspecified severity
[2017-07-02 09:05] LABS: PLATELET COUNT 279 K/MM3 (134-434)
[2017-07-02 09:18] LABS: CHLORIDE 99 mmol/L (98-107); POTASSIUM 3.9 mmol/L (3.5-5.1); SODIUM 138 mmol/L (136-145)
[2017-07-02 09:37] LABS: ALBUMIN 2.1 g/dl (3.4-5.0); ALK PHOS 179 U/L (45-117); ANION GAP 14 (8-16); BILIRUBIN,TOTAL 1.2 mg/dL (0.2-1.0); BLOOD UREA NITROGEN 12 mg/dL (7-18); CALCIUM 8.2 mg/dL (8.5-10.1); CO2 25 mmol/L (21-32); CREATININE 1.1 mg/dL (0.7-1.3); GLUCOSE,RANDOM 181 mg/dL (74-106); MAGNESIUM 2.3 mg/dL (1.8-2.4); SGOT/AST 37 U/L (15-37); SGPT/ALT 75 U/L (12-78); TOT PROT 6.2 g/dl (6.4-8.2)
[2017-07-02] MEDS: DOCUSATE SODIUM 100 MG CAPSULE (FP) PO SCH (11:38)
[2017-07-02] MEDS: QUINAPRIL HCL 40 MG TABLET (FP) PO SCH (15:24)
[2017-07-02] MEDS ORDERED: INSULIN (NOVOLOG) ASPART 100 UNITS/ML 10ML VIAL ONE ×2 (17:54→21:09)
--- NOTE | 2017-07-02 18:08 | PN ---
Teaching Attending Note Name of Resident: Wiley Osullivan ATTENDING PHYSICIAN STATEMENT I saw and evaluated the patient. I reviewed the resident's note and discussed the case with the resident. I agree with the resident's findings and plan as documented. SUBJECTIVE: No fever or chills , has pain in L leg but feels that redness has went down. OBJECTIVE: NAD Cv: RRR Lungs: CTAB Ext: no edema on RLE . LLE with erythema , increased warmth and and tenderness from ankle up to below the knee. area of superficial blistering with greenish fluid visible through it. area measures 10 cm in max diameter . small, discolored ulcers with no discharge on both big toes .No erythema Abd: soft, obese,NT, ND . ASSESSMENT AND PLAN: 52 y/o man with h/o DM , HTN, morbid obesity , DM II who presented with L leg painand erythema and was found to have LLE cellulitis 1- LLe cellulitis . erythema went down but WBC slightly increased and there is blistering now. - cont vanco and zosyn - soft tissue US - blood cx neg to date - send cx from wound 2- DM II : poorly controlled - cont levemir 32 units - SSI - need insulin at dc 3- HTN: cont ACEI 4- ASthma , stable. cont inhalers Dispo : OC
--- NOTE | 2017-07-02 19:36 | PN ---
Physical Exam: SUBJECTIVE: Patient seen and examined at bedside. Patient continues to improve daily, but has now noticed collection at the back of his leg with new areas of drainage. no fevers overnight. OBJECTIVE: Vital Signs Period Temp Pulse Resp BP Sys/Sewell Pulse Ox Last 24 Hr 98.1 F-99.6 F 79-82 18-20 155-160/54-78 GENERAL: The patient is awake, alert, and fully oriented, in no acute distress. NECK: Trachea midline, full range of motion, supple. LUNGS: Breath sounds equal, clear to auscultation bilaterally, no wheezes, no crackles, no accessory muscle use. HEART: Regular rate and rhythm, S1, S2 without murmur, rub or gallop. ABDOMEN: Soft, nontender, nondistended, normoactive bowel sounds, no guarding, no rebound, no hepatosplenomegaly, no masses. EXTREMITIES: 2+ pulses, warm, well-perfused, no edema. NEUROLOGICAL: Cranial nerves II through X grossly intact. Normal speech, gait not observed. PSYCH: Normal mood, normal affect. SKIN: The area of erythema and warmth along the patient's left leg is improving along the anterior of the leg. In the posterior portion of the leg, there is a fluctuant area which is yellow in color and draining green fluid. The discharge is not purulent. The rest of the posterior leg is dark red and edematous. The entire posterior portion of the leg has a thin, hypermobile layer of skin across it. The patient's leg continues to be warm to the touch and tender to palpation. Laboratory Results - last 24 hr 07/01/17 07/02/17 07/02/17 21:27 06:00 07:50 WBC RBC Hgb Hct MCV MCH MCHC RDW Plt Count MPV Platelet Comment Sodium Potassium Chloride Carbon Dioxide Anion Gap BUN Creatinine Creat Clearance w eGFR POC Glucometer 198 171 Random Glucose Calcium Phosphorus Magnesium Total Bilirubin AST ALT Alkaline Phosphatase Total Protein Albumin Random Vancomycin 22.003 07/02/17 07/02/17 07/02/17 07:50 07:50 11:53 WBC 12.3 H RBC 4.39 Hgb 13.1 Hct 38.5 MCV 87.7 MCH 29.8 MCHC 34.0 RDW 13.6 Plt Count 279 MPV 8.6 Platelet Comment No clotting detected Sodium 138 Potassium 3.9 Chloride 99 Carbon Dioxide 25 Anion Gap 14 BUN 12 Creatinine 1.1 D Creat Clearance w eGFR > 60 POC Glucometer 216 Random Glucose 181 H Calcium 8.2 L Phosphorus 3.0 Magnesium 2.3 Total Bilirubin 1.2 H AST 37 D ALT 75 D Alkaline Phosphatase 179 H D Total Protein 6.2 L Albumin 2.1 L Random Vancomycin 07/02/17 16:38 WBC RBC Hgb Hct MCV MCH MCHC RDW Plt Count MPV Platelet Comment Sodium Potassium Chloride Carbon Dioxide Anion Gap BUN Creatinine Creat Clearance w eGFR POC Glucometer 240 Random Glucose Calcium Phosphorus Magnesium Total Bilirubin AST ALT Alkaline Phosphatase Total Protein Albumin Random Vancomycin Active Medications Generic Name Dose Route Start Last Admin Trade Name Freq PRN Reason Stop Dose Admin Acetaminophen 650 mg 06/28/17 13:10 07/02/17 15:26 Tylenol - PO 650 mg Q6H PRN Administration PAIN LEVEL 1 - 3 Docusate Sodium 100 mg 07/02/17 10:00 07/02/17 11:38 Colace - PO 100 mg DAILY YAHIR Administration Heparin Sodium (Porcine) 5,000 unit 06/28/17 06:00 07/02/17 15:24 Heparin - SQ 5,000 unit TID YAHIR Administration Vancomycin HCl 1,750 mg/ 500 mls @ 250 mls/hr 06/28/17 16:00 07/02/17 15:27 Dextrose IVPB 250 mls/hr BID@0400,1600 YAHIR Administration Protocol Piperacillin/Tazobactam/Dextrose 4.5 gm in 100 mls @ 200 mls/hr 06/28/17 15: 00 07/02/17 15:23 Zosyn 4.5gm Ivpb (Premix) IVPB 200 mls/hr Q6H-IV YAHIR Administration Protocol Insulin Aspart 1 vial 06/28/17 22:00 07/01/17 21:29 Novolog Vial Sliding Scale - SQ Not Given HS YAHIR Protocol Insulin Aspart 1 vial 07/01/17 11:45 07/02/17 18:00 Novolog Vial Sliding Scale - SQ 14 units TIDAC YAHIR Administration Protocol Insulin Detemir 32 units 07/02/17 22:00 Levemir Vial SQ HS YAHIR Montelukast Sodium 10 mg 06/28/17 22:00 07/01/17 21:29 Singulair - PO 10 mg HS YAHIR Administration Oxycodone HCl 10 mg 07/01/17 14:17 03/21/18 15:25 Roxicodone - PO 10 mg Q6H PRN Administration PAIN LEVEL 4 - 6 Quinapril HCl 40 mg 07/01/17 10:00 07/02/17 15:24 Accupril - PO 40 mg DAILY [facility] Administration ASSESSMENT/PLAN: The patient is a 52 yo m w/ PMH DM, HTN, HLD who is being admitted for sepsis 2/ 2 cellulitis #Sepsis 2/2 cellulitis likely 2/2 DM foot ulcer -white count increasing today -affected area now draining greenish fluid; c/w current therapy as per ID -wound cx -leg soft tissue US r/o abscess -ID onboard -Zosyn 4.5 g Q6H -Vancomycin 1,750 mg BID -Podiatry following #DM -endocrinology onboard -hold oral hypoglycemics -ISS TIDAC -secondary ISS HS -levemir increased to 32u HS -BGM ACHS #HTN -c/w home quinapril 40 #asthma -c/w home motelukast -nebs PRN #FEN -no fluids indicated -lytes WNL -diabetic diet #Prophy -hep sq 5ku TID #Dispo -admit to med-surg Visit type - Emergency Visit Emergency Visit: Yes ED Registration Date: 06/27/17 Care time: The patient presented to the Emergency Department on the above date and was hospitalized for further evaluation of their emergent condition. - New Patient This patient is new to me today: No - Critical Care Critical Care patient: No
[2017-07-02] MEDS: MONTELUKAST NA 10 MG TABLET PO SCH (21:35)
[2017-07-02] MEDS: INSULIN DETEMIR 100 UNITS/ML MDV SQ SCH (21:43)
[2017-07-03] MEDS ORDERED: PT OWN MED DRAWER 7, Y5N ONE ×3 (02:58→21:34)
[2017-07-03] MEDS: PIPERACILLIN/TAZOB 4.5 GM 4.5 GM/100 ML BAG IVPB SCH ×4 (03:12→21:50)
[2017-07-03] MEDS: VANCOMYCIN 1,750 MG in DEXTROSE 5%-WATER - 500 ML IVPB SCH (05:07)
[2017-07-03] MEDS: ACETAMINOPHEN 325 MG TABLET (FP) PO PRN ×3 (06:13→21:50)
[2017-07-03] MEDS: HEPARIN NA (PORCINE) 5,000 UNITS/ML 1ML VIAL SQ SCH ×3 (06:14→21:50)
[2017-07-03] MEDS: oxyCODONE HCL 5 MG TABLET PO PRN ×3 (06:14→21:50)
[2017-07-03] MEDS: INSULIN SLIDING SCALE (NOVOLOG) 1 VIAL SQ SCH ×4 (06:15→21:51)
[2017-07-03 08:23] LABS: HEMATOCRIT 39.2 % (35.4-49); HEMOGLOBIN 13.5 GM/dL (11.7-16.9); MCH 30.2 pg (25.7-33.7); MCHC 34.5 g/dl (32.0-35.9); MEAN CELL VOLUME 87.7 fl (80-96); MEAN PLT VOLUME 7.8 fl (7.5-11.1); PLATELET COUNT 311 K/MM3 (134-434); RBC 4.46 M/mm3 (4.00-5.60); RDW 12.9 % (11.9-15.9); WHITE BLOOD COUNT 7.9 K/mm3 (4.0-10.0)
--- NOTE | 2017-07-03 08:47 | PN ---
Physical Exam: SUBJECTIVE: Patient seen and examined. No new complaints. Pain controlled. Denies fever or chills overnight. OBJECTIVE: Vital Signs Period Temp Pulse Resp BP Sys/Sewell Pulse Ox Last 24 Hr 98.5 F-99.2 F 74-85 20-20 109-159/54-74 GENERAL: The patient is awake, alert, and fully oriented, in no acute distress. NECK: Trachea midline, full range of motion, supple. LUNGS: Breath sounds equal, clear to auscultation bilaterally, no wheezes, no crackles, no accessory muscle use. HEART: Regular rate and rhythm, S1, S2 without murmur, rub or gallop. ABDOMEN: Soft, nontender, nondistended, normoactive bowel sounds, no guarding, no rebound, no hepatosplenomegaly, no masses. EXTREMITIES: 2+ pulses, warm, well-perfused, no edema. NEUROLOGICAL: Cranial nerves II through X grossly intact. Normal speech, gait not observed. PSYCH: Normal mood, normal affect. SKIN: The area of erythema and warmth along the patient's left leg is improving along the anterior of the leg. In the posterior portion of the leg, the skin over the fluctuant area noted yesterday has since broken and continues to leak yellow fluid. There is interval development of a tense bulla on the lateral aspect of the leg filled with thin fluid. Laboratory Results - last 24 hr 07/02/17 07/02/17 07/02/17 07:50 07:50 07:50 WBC 12.3 H RBC 4.39 Hgb 13.1 Hct 38.5 MCV 87.7 MCH 29.8 MCHC 34.0 RDW 13.6 Plt Count 279 MPV 8.6 Neutrophils % Lymphocytes % Platelet Comment No clotting detected Sodium 138 Potassium 3.9 Chloride 99 Carbon Dioxide 25 Anion Gap 14 BUN 12 Creatinine 1.1 D Creat Clearance w eGFR > 60 POC Glucometer Random Glucose 181 H Calcium 8.2 L Phosphorus 3.0 Magnesium 2.3 Total Bilirubin 1.2 H AST 37 D ALT 75 D Alkaline Phosphatase 179 H D Total Protein 6.2 L Albumin 2.1 L Random Vancomycin 22.003 07/02/17 07/02/17 07/02/17 11:53 16:38 21:34 WBC RBC Hgb Hct MCV MCH MCHC RDW Plt Count MPV Neutrophils % Lymphocytes % Platelet Comment Sodium Potassium Chloride Carbon Dioxide Anion Gap BUN Creatinine Creat Clearance w eGFR POC Glucometer 216 240 109 Random Glucose Calcium Phosphorus Magnesium Total Bilirubin AST ALT Alkaline Phosphatase Total Protein Albumin Random Vancomycin 07/03/17 07/03/17 06:00 06:13 WBC 7.9 D RBC 4.46 Hgb 13.5 Hct 39.2 MCV 87.7 MCH 30.2 MCHC 34.5 RDW 12.9 Plt Count 311 MPV 7.8 Neutrophils % No Result Required. Lymphocytes % No Result Required. Platelet Comment Sodium Potassium Chloride Carbon Dioxide Anion Gap BUN Creatinine Creat Clearance w eGFR POC Glucometer 132 Random Glucose Calcium Phosphorus Magnesium Total Bilirubin AST ALT Alkaline Phosphatase Total Protein Albumin Random Vancomycin Active Medications Generic Name Dose Route Start Last Admin Trade Name Freq PRN Reason Stop Dose Admin Acetaminophen 650 mg 06/28/17 13:10 07/03/17 06:13 Tylenol - PO 650 mg Q6H PRN Administration PAIN LEVEL 1 - 3 Docusate Sodium 100 mg 07/02/17 10:00 07/02/17 11:38 Colace - PO 100 mg DAILY YAHIR Administration Heparin Sodium (Porcine) 5,000 unit 06/28/17 06:00 07/03/17 06:14 Heparin - SQ 5,000 unit TID YAHIR Administration Vancomycin HCl 1,750 mg/ 500 mls @ 250 mls/hr 06/28/17 16:00 07/03/17 05:07 Dextrose IVPB 250 mls/hr BID@0400,1600 YAHIR Administration Protocol Piperacillin/Tazobactam/Dextrose 4.5 gm in 100 mls @ 200 mls/hr 06/28/17 15: 00 07/03/17 03:12 Zosyn 4.5gm Ivpb (Premix) IVPB 200 mls/hr Q6H-IV YAHIR Administration Protocol Insulin Aspart 1 vial 06/28/17 22:00 07/02/17 21:35 Novolog Vial Sliding Scale - SQ Not Given HS [facility] Protocol Insulin Aspart 1 vial 07/01/17 11:45 07/03/17 06:15 Novolog Vial Sliding Scale - SQ 6 units TIDAC YAHIR Administration Protocol Insulin Detemir 32 units 07/02/17 22:00 07/02/17 21:43 Levemir Vial SQ 32 units HS YAHIR Administration Montelukast Sodium 10 mg 06/28/17 22:00 07/02/17 21:35 Singulair - PO 10 mg HS YAHIR Administration Oxycodone HCl 5 mg 07/02/17 19:50 07/03/17 06:14 Roxicodone - PO 5 mg Q6H PRN Administration PAIN LEVEL 4 - 6 Polyethylene Glycol 17 gm 07/03/17 10:00 Miralax (For Daily Use) - PO DAILY YAHIR Quinapril HCl 40 mg 07/01/17 10:00 07/02/17 15:24 Accupril - PO 40 mg DAILY YAHIR Administration ASSESSMENT/PLAN: The patient is a 52 yo m w/ PMH DM, HTN, HLD who is being admitted for sepsis 2/ 2 cellulitis #Sepsis 2/2 cellulitis likely 2/2 DM foot ulcer -white count normalized today -per patient, ID will evaluate the leg on friday to make additional recommendations. -the posterior leg now has area of broken skin w/ tense, fluid filled bullae on lateral surface -wound cx gram stain negative -leg soft tissue US negative for collections or abscesses. -ID onboard -Zosyn 4.5 g Q6H (day 7) -Vancomycin 1,750 mg BID (day 7) -Podiatry following #DM -endocrinology onboard -ISS TIDAC & HS -levemir increased to 32u HS yesterday -BGM ACHS #HTN -c/w home quinapril 40 #asthma -c/w home motelukast -nebs PRN #FEN -no fluids indicated -lytes WNL -diabetic diet #Prophy -hep sq 5ku TID #Dispo -admit to med-surg Visit type - Emergency Visit Emergency Visit: Yes ED Registration Date: 06/27/17 Care time: The patient presented to the Emergency Department on the above date and was hospitalized for further evaluation of their emergent condition. - New Patient This patient is new to me today: No - Critical Care Critical Care patient: No
[2017-07-03 09:39] LABS: PLATELET ESTIMATE NORMAL
--- NOTE | 2017-07-03 11:01 | PN ---
Progress Note (short form) - Note Progress Note: Has drainage from left leg Afebrile Blood sugar improving No hypos Vital Signs Period Temp Pulse Resp BP Sys/Sewell Pulse Ox Last 24 Hr 98.5 F-99.2 F 74-85 20-20 109-159/54-74 PE: AOx3 Neck: Supple, No JVD HEENT: PERRL ,EOMI Lungs: CTA CVS: S1S2 Abd: Benign EXT: Left leg erythena, drainage from left calf Neuro: NO focal deficit CMP Sodium 138 mmol/L (136-145) 07/02/17 07:50 Potassium 3.9 mmol/L (3.5-5.1) 07/02/17 07:50 Chloride 99 mmol/L (98-107) 07/02/17 07:50 Carbon Dioxide 25 mmol/L (21-32) 07/02/17 07:50 Anion Gap 14 (8-16) 07/02/17 07:50 BUN 12 mg/dL (7-18) 07/02/17 07:50 Creatinine 1.1 mg/dL (0.7-1.3) D 07/02/17 07:50 Creat Clearance w eGFR > 60 (>60) 07/02/17 07:50 POC Glucometer 132 UNITS (80-120) 07/03/17 06:13 Random Glucose 181 mg/dL (74-106) H 07/02/17 07:50 Hemoglobin A1c % 10.6 % (4.8-6.0) H 06/29/17 07:02 Lactic Acid 2.1 mmol/L (0.0-2.0) H 06/28/17 00:29 Calcium 8.2 mg/dL (8.5-10.1) L 07/02/17 07:50 Phosphorus 3.0 mg/dL (2.5-4.9) 07/02/17 07:50 Magnesium 2.3 mg/dL (1.8-2.4) 07/02/17 07:50 Total Bilirubin 1.2 mg/dL (0.2-1.0) H 07/02/17 07:50 AST 37 U/L (15-37) D 07/02/17 07:50 ALT 75 U/L (12-78) D 07/02/17 07:50 Alkaline Phosphatase 179 U/L (45-117) H D 07/02/17 07:50 C-Reactive Protein 23.2 MG/DL (0.00-0.3) H 06/28/17 15:15 Total Protein 6.2 g/dl (6.4-8.2) L 07/02/17 07:50 Albumin 2.1 g/dl (3.4-5.0) L 07/02/17 07:50 Current Medications Generic Name Dose Route Start Last Admin Trade Name Freq PRN Reason Stop Dose Admin Acetaminophen 650 mg 06/28/17 13:10 07/03/17 06:13 Tylenol - PO 650 mg Q6H PRN Administration PAIN LEVEL 1 - 3 Docusate Sodium 100 mg 07/02/17 10:00 07/02/17 11:38 Colace - PO 100 mg DAILY YAHIR Administration Heparin Sodium (Porcine) 5,000 unit 06/28/17 06:00 07/03/17 06:14 Heparin - SQ 5,000 unit TID YAHIR Administration Vancomycin HCl 1,750 mg/ 500 mls @ 250 mls/hr 06/28/17 16:00 07/03/17 05:07 Dextrose IVPB 250 mls/hr BID@0400,1600 YAHIR Administration Protocol Piperacillin/Tazobactam/Dextrose 4.5 gm in 100 mls @ 200 mls/hr 06/28/17 15: 00 07/03/17 03:12 Zosyn 4.5gm Ivpb (Premix) IVPB 200 mls/hr Q6H-IV YAHIR Administration Protocol Insulin Aspart 1 vial 06/28/17 22:00 07/02/17 21:35 Novolog Vial Sliding Scale - SQ Not Given HS [facility] Protocol Insulin Aspart 1 vial 07/01/17 11:45 07/03/17 06:15 Novolog Vial Sliding Scale - SQ 6 units TIDAC [facility] Administration Protocol Insulin Detemir 32 units 07/02/17 22:00 07/02/17 21:43 Levemir Vial SQ 32 units HS YAHIR Administration Montelukast Sodium 10 mg 06/28/17 22:00 07/02/17 21:35 Singulair - PO 10 mg HS YAHIR Administration Oxycodone HCl 5 mg 07/02/17 19:50 07/03/17 06:14 Roxicodone - PO 5 mg Q6H PRN Administration PAIN LEVEL 4 - 6 Polyethylene Glycol 17 gm 07/03/17 10:00 Miralax (For Daily Use) - PO DAILY YAHIR Quinapril HCl 40 mg 07/01/17 10:00 07/02/17 15:24 Accupril - PO 40 mg DAILY YAHIR Administration AP: Left leg Cellulitis with drainage Left big toe ulcer T2DM HTN HLD A1c 10.6 Diet exercise discussed again Pt refuses any surgerical procedure for wt loss. Continue Levemir 32 units daily at HS Novolog SS coverage IV Abx Will hold oral antidiabetic agents for now Pt says his does Insulin pen injections and will learn from her to do it at home Pt understands he will be going home on Insulin S/S of hypoglycemia discussed. To report any symptoms to the floor staff Problem List - Problems (1) Cellulitis Code(s): L03.90 - CELLULITIS, UNSPECIFIED Qualifiers: Site of cellulitis: extremity Site of cellulitis of extremity: lower extremity Laterality: left Qualified Code(s): L03.116 - Cellulitis of left lower limb (2) Diabetic foot ulcer Code(s): E11.621 - TYPE 2 DIABETES MELLITUS WITH FOOT ULCER; L97.509 - NON- PRESSURE CHRONIC ULCER OTH PRT UNSP FOOT W UNSP SEVERITY Qualifiers: Diabetic foot ulcer location: toe Diabetes mellitus type: other specified ( including STACEY) Laterality: left Non-pressure ulcer stage: unspecified non- pressure ulcer stage Qualified Code(s): E13.621 - Other specified diabetes mellitus with foot ulcer; L97.529 - Non-pressure chronic ulcer of other part of left foot with unspecified severity; L97.529 - Non-pressure chronic ulcer of other part of left foot with unspecified severity; L97.529 - Non-pressure chronic ulcer of other part of left foot with unspecified severity; L97.529 - Non-pressure chronic ulcer of other part of left foot with unspecified severity
[2017-07-03] MEDS: QUINAPRIL HCL 40 MG TABLET (FP) PO SCH (11:15)
[2017-07-03] MEDS: DOCUSATE SODIUM 100 MG CAPSULE (FP) PO SCH (11:15)
[2017-07-03] MEDS: POLYETHYLENE GLYCOL 3350 119 GM BTL PO SCH (12:16)
--- NOTE | 2017-07-03 14:42 | PN ---
Progress Note, Physician Chief Complaint: Reports improvement L LE pain/ erythema No c/o fever/ chills No adverse rxn to antibiotics - Current Medication List Current Medications: Active Medications Acetaminophen (Tylenol -) 650 mg PO Q6H PRN PRN Reason: PAIN LEVEL 1 - 3 Last Admin: 07/03/17 12:50 Dose: 650 mg Docusate Sodium (Colace -) 100 mg PO DAILY [facility] Last Admin: 07/03/17 11:15 Dose: 100 mg Heparin Sodium (Porcine) (Heparin -) 5,000 unit SQ TID [facility] Last Admin: 07/03/17 06:14 Dose: 5,000 unit Vancomycin HCl 1,750 mg/ (Dextrose) 500 mls @ 250 mls/hr IVPB BID@0400,1600 YAHIR PRN Reason: Protocol Last Admin: 07/03/17 05:07 Dose: 250 mls/hr Piperacillin/Tazobactam/Dextrose (Zosyn 4.5gm Ivpb (Premix)) 4.5 gm in 100 mls @ 200 mls/hr IVPB Q6H-IV YAHIR PRN Reason: Protocol Last Admin: 07/03/17 11:12 Dose: 200 mls/hr Insulin Aspart (Novolog Vial Sliding Scale -) 1 vial SQ HS [facility] PRN Reason: Protocol Last Admin: 07/02/17 21:35 Dose: Not Given Insulin Aspart (Novolog Vial Sliding Scale -) 1 vial SQ TIDAC [facility] PRN Reason: Protocol Last Admin: 07/03/17 06:15 Dose: 6 units Insulin Detemir (Levemir Vial) [address] [facility] Last Admin: 07/02/17 21:43 Dose: 32 units Montelukast Sodium (Singulair -) [address] [facility] Last Admin: 07/02/17 21:35 Dose: 10 mg Oxycodone HCl (Roxicodone -) 5 mg PO Q6H PRN PRN Reason: PAIN LEVEL 4 - 6 Last Admin: 07/03/17 12:49 Dose: 5 mg Polyethylene Glycol (Miralax (For Daily Use) -) 17 gm PO DAILY [facility] Last Admin: 07/03/17 12:16 Dose: Not Given Quinapril HCl (Accupril -) 40 mg PO DAILY [facility] Last Admin: 07/03/17 11:15 Dose: 40 mg - Objective Vital Signs: Vital Signs Temperature 98.6 F 07/03/17 06:19 Pulse Rate 85 07/03/17 06:19 Respiratory Rate 20 07/03/17 06:19 Blood Pressure 109/61 07/03/17 06:19 O2 Sat by Pulse Oximetry (%) 97 06/28/17 04:34 Constitutional: Yes: No Distress Eyes: Yes: Conjunctiva Clear Cardiovascular: Yes: Regular Rate and Rhythm, S1, S2 Respiratory: Yes: CTA Bilaterally Gastrointestinal: Yes: Normal Bowel Sounds, Soft. No: Tenderness Extremities: Yes: Other (decreased L LE swelling / erythema. + serous drainage from calf area) Labs: CBC, BMP 07/03/17 06:00 07/02/17 07:50 INR, PTT INR 1.38 (0.82-1.09) H 06/27/17 21:00 Assessment/Plan Cellulitis L LE improved Fever/ leukocytosis- improved Continue zosyn. Hold vancomycin (elevated trough ) Elevation
--- NOTE | 2017-07-03 17:33 | PN ---
Teaching Attending Note Name of Resident: Wiley Osullivan ATTENDING PHYSICIAN STATEMENT I saw and evaluated the patient. I reviewed the resident's note and discussed the case with the resident. I agree with the resident's findings and plan as documented. SUBJECTIVE: No fever or chills . has pain but improved in L leg . he thinks his leg is getting better . OBJECTIVE: NAD Cv: RRR Lungs: CTAB Ext: no edema on RLE . LLE with improved erythema , warmth and edema. The big blister on posterior calf is open now with thin greenish fluid. a tense blister on lateral side with fluid collection. small few more small blisters about 0.5 cm in diameter on lateral aspect, filled with whit fluid . big toes with clean dressings. ASSESSMENT AND PLAN: 52 y/o man with h/o DM , HTN, morbid obesity , DM II who presented with L leg painand erythema and was found to have LLE cellulitis 1- LLE cellulitis . erythema has improved. but skin continue to blister with fluid and puss in some of the blisters ( especially the small ones ) US with no deep fluid collection . He has no leukocytosis, no fever, no signs of worsening infection or deep tissue /fascia/compartment infection - cont zosyn - vanco held, random vanco in am - wound cx form large vesicle, with no bacteria on G stain but cx pending - monitor skin condition and bullae. 2- DM II: - cont levemir 32 units - SSI - need insulin at dc 3- HTN: cont ACEI 4- ASthma , stable. cont inhalers Dispo : OC
[2017-07-03] MEDS: MONTELUKAST NA 10 MG TABLET PO SCH (21:50)
[2017-07-03] MEDS: INSULIN DETEMIR 100 UNITS/ML MDV SQ SCH (21:51)
[2017-07-04] MEDS ORDERED: PT OWN MED DRAWER 7, Y5N ONE ×4 (02:30→22:51)
[2017-07-04] MEDS: PIPERACILLIN/TAZOB 4.5 GM 4.5 GM/100 ML BAG IVPB SCH ×4 (02:40→22:55)
[2017-07-04] MEDS: HEPARIN NA (PORCINE) 5,000 UNITS/ML 1ML VIAL SQ SCH ×3 (06:29→22:56)
[2017-07-04] MEDS: INSULIN SLIDING SCALE (NOVOLOG) 1 VIAL SQ SCH ×4 (06:29→23:01)
[2017-07-04] MEDS: oxyCODONE HCL 5 MG TABLET PO PRN ×3 (06:30→22:58)
[2017-07-04] MEDS: ACETAMINOPHEN 325 MG TABLET (FP) PO PRN ×3 (06:30→22:59)
[2017-07-04 08:15] LABS: BASO % 0.8 % (0-2.0); EOS % 2.6 % (0-4.5); HEMOGLOBIN 13.3 GM/dL (11.7-16.9); LYMPH % 11.5 % (8-40); MCH 29.8 pg (25.7-33.7); MCHC 34.1 g/dl (32.0-35.9); MEAN CELL VOLUME 87.3 fl (80-96); MEAN PLT VOLUME 7.6 fl (7.5-11.1); MONO % 9.6 % (3.8-10.2); NEUT % 75.5 % (42.8-82.8); PLATELET COUNT 359 K/MM3 (134-434); RBC 4.47 M/mm3 (4.00-5.60); RDW 13.3 % (11.9-15.9); WHITE BLOOD COUNT 7.8 K/mm3 (4.0-10.0)
[2017-07-04] MEDS ORDERED: INSULIN (NOVOLOG) ASPART 100 UNITS/ML 10ML VIAL ONE (09:46)
[2017-07-04] MEDS: DOCUSATE SODIUM 100 MG CAPSULE (FP) PO SCH (09:47)
[2017-07-04] MEDS: QUINAPRIL HCL 40 MG TABLET (FP) PO SCH (09:47)
[2017-07-04] MEDS: POLYETHYLENE GLYCOL 3350 119 GM BTL PO SCH (09:48)
--- NOTE | 2017-07-04 10:45 | PN ---
Progress Note (short form) - Note Progress Note: Has drainage from left leg Afebrile Blood sugar acceptable No hypos Vital Signs Period Temp Pulse Resp BP Sys/Eswell Pulse Ox Last 24 Hr 98.4 F-98.4 F 80-98 20-20 147-161/72-84 98 PE: AOx3 Neck: Supple, No JVD HEENT: PERRL ,EOMI Lungs: CTA CVS: S1S2 Abd: Benign EXT: Left leg erythena, drainage from left calf Neuro: NO focal deficit CMP Sodium 138 mmol/L (136-145) 07/02/17 07:50 Potassium 3.9 mmol/L (3.5-5.1) 07/02/17 07:50 Chloride 99 mmol/L (98-107) 07/02/17 07:50 Carbon Dioxide 25 mmol/L (21-32) 07/02/17 07:50 Anion Gap 14 (8-16) 07/02/17 07:50 BUN 12 mg/dL (7-18) 07/02/17 07:50 Creatinine 1.1 mg/dL (0.7-1.3) D 07/02/17 07:50 Creat Clearance w eGFR > 60 (>60) 07/02/17 07:50 POC Glucometer 144 UNITS (80-120) 07/04/17 09:54 Random Glucose 181 mg/dL (74-106) H 07/02/17 07:50 Hemoglobin A1c % 10.6 % (4.8-6.0) H 06/29/17 07:02 Lactic Acid 2.1 mmol/L (0.0-2.0) H 06/28/17 00:29 Calcium 8.2 mg/dL (8.5-10.1) L 07/02/17 07:50 Phosphorus 3.0 mg/dL (2.5-4.9) 07/02/17 07:50 Magnesium 2.3 mg/dL (1.8-2.4) 07/02/17 07:50 Total Bilirubin 1.2 mg/dL (0.2-1.0) H 07/02/17 07:50 AST 37 U/L (15-37) D 07/02/17 07:50 ALT 75 U/L (12-78) D 07/02/17 07:50 Alkaline Phosphatase 179 U/L (45-117) H D 07/02/17 07:50 C-Reactive Protein 23.2 MG/DL (0.00-0.3) H 06/28/17 15:15 Total Protein 6.2 g/dl (6.4-8.2) L 07/02/17 07:50 Albumin 2.1 g/dl (3.4-5.0) L 07/02/17 07:50 Current Medications Generic Name Dose Route Start Last Admin Trade Name Freq PRN Reason Stop Dose Admin Acetaminophen 650 mg 06/28/17 13:10 07/04/17 06:30 Tylenol - PO 650 mg Q6H PRN Administration PAIN LEVEL 1 - 3 Docusate Sodium 100 mg 07/02/17 10:00 07/04/17 09:47 Colace - PO 100 mg DAILY YAHIR Administration Heparin Sodium (Porcine) 5,000 unit 06/28/17 06:00 07/04/17 06:29 Heparin - SQ 5,000 unit TID YAHIR Administration Piperacillin/Tazobactam/Dextrose 4.5 gm in 100 mls @ 200 mls/hr 06/28/17 15: 00 07/04/17 09:47 Zosyn 4.5gm Ivpb (Premix) IVPB 200 mls/hr Q6H-IV YAHIR Administration Protocol Insulin Aspart 1 vial 06/28/17 22:00 07/03/17 21:51 Novolog Vial Sliding Scale - SQ Not Given HS [facility] Protocol Insulin Aspart 1 vial 07/01/17 11:45 07/04/17 10:00 Novolog Vial Sliding Scale - SQ 6 units TIDAC YAHIR Administration Protocol Insulin Detemir 32 units 07/02/17 22:00 07/03/17 21:51 Levemir Vial SQ 32 units HS YAHIR Administration Montelukast Sodium 10 mg 06/28/17 22:00 07/03/17 21:50 Singulair - PO 10 mg HS YAHIR Administration Oxycodone HCl 5 mg 07/02/17 19:50 07/04/17 06:30 Roxicodone - PO 5 mg Q6H PRN Administration PAIN LEVEL 4 - 6 Polyethylene Glycol 17 gm 07/03/17 10:00 07/04/17 09:48 Miralax (For Daily Use) - PO Not Given DAILY YAHIR Quinapril HCl 40 mg 07/01/17 10:00 07/04/17 09:47 Accupril - PO 40 mg DAILY YAHIR Administration AP: Left leg Cellulitis with drainage Left big toe ulcer T2DM HTN HLD A1c 10.6 Continue Levemir 32 units daily at HS Novolog SS coverage IV Abx Will hold oral antidiabetic agents for now Pt says his does Insulin pen injections and will learn from her to do it at home Pt understands he will be going home on Insulin S/S of hypoglycemia discussed. To report any symptoms to the floor staff Problem List - Problems (1) Cellulitis Code(s): L03.90 - CELLULITIS, UNSPECIFIED Qualifiers: Site of cellulitis: extremity Site of cellulitis of extremity: lower extremity Laterality: left Qualified Code(s): L03.116 - Cellulitis of left lower limb (2) Diabetic foot ulcer Code(s): E11.621 - TYPE 2 DIABETES MELLITUS WITH FOOT ULCER; L97.509 - NON- PRESSURE CHRONIC ULCER OTH PRT UNSP FOOT W UNSP SEVERITY Qualifiers: Diabetic foot ulcer location: toe Diabetes mellitus type: other specified ( including STACEY) Laterality: left Non-pressure ulcer stage: unspecified non- pressure ulcer stage Qualified Code(s): E13.621 - Other specified diabetes mellitus with foot ulcer; L97.529 - Non-pressure chronic ulcer of other part of left foot with unspecified severity; L97.529 - Non-pressure chronic ulcer of other part of left foot with unspecified severity; L97.529 - Non-pressure chronic ulcer of other part of left foot with unspecified severity; L97.529 - Non-pressure chronic ulcer of other part of left foot with unspecified severity
[2017-07-04] MEDS ORDERED: VANCOMYCIN 1,000 MG in DEXTROSE 5%-WATER - 250 ML IVPB ONE (12:30)
--- NOTE | 2017-07-04 13:56 | PN ---
Teaching Attending Note Name of Resident: Roxanne Morelos ATTENDING PHYSICIAN STATEMENT I saw and evaluated the patient. I reviewed the resident's note and discussed the case with the resident. I agree with the resident's findings and plan as documented. SUBJECTIVE: No fever or chills. feels his leg is getting better. he could walk with less pain today OBJECTIVE: NAD Cv: RRR Lungs: CTAB Ext: no edema on RLE . LLE with improved erythema , warmth and edema. The big blister on posterior calf is open with thin clear fluid. a tense blister on lateral side with clear fluid collection. 2 small blisters with clear liquid ASSESSMENT AND PLAN: 52 y/o man with h/o DM , HTN, morbid obesity , DM II who presented with L leg painand erythema and was found to have LLE cellulitis 1- LLE cellulitis. improved. still need IV abx - Vanco level noted. start vanco at a lower dose 1500 mg q 12 hr - cont zosyn 2- DM II: - cont levemir 32 units - SSI - need insulin at dc 3- HTN: cont ACEI 4- ASthma , stable. cont inhalers Dispo : HLOC
[2017-07-04] MEDS ORDERED: VANCOMYCIN 1,500 MG in DEXTROSE 5%-WATER - 500 ML IVPB SCH (15:00)
--- NOTE | 2017-07-04 15:55 | PN ---
Progress Note, Physician Chief Complaint: Reports improvement L LE pain/ erythema No c/o fever/ chills No adverse rxn to antibiotics - Current Medication List Current Medications: Active Medications Acetaminophen (Tylenol -) 650 mg PO Q6H PRN PRN Reason: PAIN LEVEL 1 - 3 Last Admin: 07/04/17 12:41 Dose: 650 mg Docusate Sodium (Colace -) 100 mg PO DAILY [facility] Last Admin: 07/04/17 09:47 Dose: 100 mg Heparin Sodium (Porcine) (Heparin -) 5,000 unit SQ TID [facility] Last Admin: 07/04/17 15:15 Dose: 5,000 unit Piperacillin/Tazobactam/Dextrose (Zosyn 4.5gm Ivpb (Premix)) 4.5 gm in 100 mls @ 200 mls/hr IVPB Q6H-IV YAHIR PRN Reason: Protocol Last Admin: 07/04/17 15:14 Dose: 200 mls/hr Vancomycin HCl 1,500 mg/ (Dextrose) 500 mls @ 250 mls/hr IVPB Q12H YAHIR PRN Reason: Protocol Vancomycin HCl 1,500 mg/ (Dextrose) 250 mls @ 166.667 mls/hr IVPB Q12H [facility] Insulin Aspart (Novolog Vial Sliding Scale -) 1 vial SQ HS [facility] PRN Reason: Protocol Last Admin: 07/03/17 21:51 Dose: Not Given Insulin Aspart (Novolog Vial Sliding Scale -) 1 vial SQ TIDAC [facility] PRN Reason: Protocol Last Admin: 07/04/17 10:00 Dose: 6 units Insulin Detemir (Levemir Vial) 32 units SQ [facility] Last Admin: 07/03/17 21:51 Dose: 32 units Montelukast Sodium (Singulair -) 10 mg PO [facility] Last Admin: 07/03/17 21:50 Dose: 10 mg Oxycodone HCl (Roxicodone -) 5 mg PO Q6H PRN PRN Reason: PAIN LEVEL 4 - 6 Last Admin: 07/04/17 12:41 Dose: 5 mg Polyethylene Glycol (Miralax (For Daily Use) -) 17 gm PO DAILY [facility] Last Admin: 07/04/17 09:48 Dose: Not Given Quinapril HCl (Accupril -) 40 mg PO DAILY [facility] Last Admin: 07/04/17 09:47 Dose: 40 mg - Objective Vital Signs: Vital Signs Temperature 98.4 F 07/04/17 05:48 Pulse Rate 98 H 07/04/17 05:48 Respiratory Rate 20 07/04/17 05:48 Blood Pressure 147/72 07/04/17 05:48 O2 Sat by Pulse Oximetry (%) 98 07/03/17 21:00 Constitutional: Yes: No Distress Eyes: Yes: Conjunctiva Clear Cardiovascular: Yes: Regular Rate and Rhythm, S1, S2 Respiratory: Yes: CTA Bilaterally Gastrointestinal: Yes: Normal Bowel Sounds, Soft. No: Tenderness Extremities: Yes: Other (decreased erythema / warmth L LE. No weepage) Labs: CBC, BMP 07/04/17 07:55 07/02/17 07:50 INR, PTT INR 1.38 (0.82-1.09) H 06/27/17 21:00 Assessment/Plan Cellulitis L LE improved Fever/ leukocytosis- improved Continue zosyn /vancomycin Elevation
[2017-07-04] MEDS ORDERED: VANCOMYCIN 1,750 MG in DEXTROSE 5%-WATER - 500 ML IVPB SCH (16:00)
--- NOTE | 2017-07-04 16:19 | PN ---
Physical Exam: SUBJECTIVE: Patient seen and examined no new complaints, wanting to go home; denies fever, chills. States pain, redness of LLE improved; less draining, no puss OBJECTIVE: Vital Signs Period Temp Pulse Resp BP Sys/Sewell Pulse Ox Last 24 Hr 98.4 F-98.4 F 80-98 20-20 147-161/72-84 98 GENERAL: The patient is awake, alert, and fully oriented, in no acute distress. LUNGS: Breath sounds equal, clear to auscultation bilaterally, no wheezes, no crackles, no accessory muscle use. HEART: Regular rate and rhythm, S1, S2 without murmur, rub or gallop. ABDOMEN: obese Soft, nontender, nondistended, normoactive bowel sounds, no guarding, no rebound, no hepatosplenomegaly, no masses. EXTREMITIES: 2+ pulses, warm, well-perfused, no edema. LLE erythema with skin breakdown from infection; with bulla left lateral aspect filled with clear fluid ; Laboratory Results - last 24 hr 07/03/17 07/03/17 07/04/17 17:18 21:49 06:28 WBC RBC Hgb Hct MCV MCH MCHC RDW Plt Count MPV Neutrophils % Lymphocytes % Monocytes % Eosinophils % Basophils % POC Glucometer 204 115 130 Random Vancomycin 07/04/17 07/04/17 07/04/17 07:55 07:55 09:54 WBC 7.8 RBC 4.47 Hgb 13.3 Hct 39.0 MCV 87.3 MCH 29.8 MCHC 34.1 RDW 13.3 Plt Count 359 MPV 7.6 Neutrophils % 75.5 Lymphocytes % 11.5 D Monocytes % 9.6 Eosinophils % 2.6 D Basophils % 0.8 POC Glucometer 144 Random Vancomycin 11.644 Active Medications Generic Name Dose Route Start Last Admin Trade Name Freq PRN Reason Stop Dose Admin Acetaminophen 650 mg 06/28/17 13:10 07/04/17 12:41 Tylenol - PO 650 mg Q6H PRN Administration PAIN LEVEL 1 - 3 Docusate Sodium 100 mg 07/02/17 10:00 07/04/17 09:47 Colace - PO 100 mg DAILY YAHIR Administration Heparin Sodium (Porcine) 5,000 unit 06/28/17 06:00 07/04/17 15:15 Heparin - SQ 5,000 unit TID YAHIR Administration Piperacillin/Tazobactam/Dextrose 4.5 gm in 100 mls @ 200 mls/hr 06/28/17 15: 00 07/04/17 15:14 Zosyn 4.5gm Ivpb (Premix) IVPB 200 mls/hr Q6H-IV YAHIR Administration Protocol Vancomycin HCl 1,500 mg/ 250 mls @ 166.667 mls/hr 07/04/17 16:00 Dextrose IVPB Q12H YAHIR Insulin Aspart 1 vial 06/28/17 22:00 07/03/17 21:51 Novolog Vial Sliding Scale - SQ Not Given HS [facility] Protocol Insulin Aspart 1 vial 07/01/17 11:45 07/04/17 15:54 Novolog Vial Sliding Scale - SQ 10 units TIDAC YAHIR Administration Protocol Insulin Detemir 32 units 07/02/17 22:00 07/03/17 21:51 Levemir Vial SQ 32 units HS YAHIR Administration Montelukast Sodium 10 mg 06/28/17 22:00 07/03/17 21:50 Singulair - PO 10 mg HS [facility] Administration Oxycodone HCl 5 mg 07/02/17 19:50 07/04/17 12:41 Roxicodone - PO 5 mg Q6H PRN Administration PAIN LEVEL 4 - 6 Polyethylene Glycol 17 gm 07/03/17 10:00 07/04/17 09:48 Miralax (For Daily Use) - PO Not Given DAILY YAHIR Quinapril HCl 40 mg 07/01/17 10:00 07/04/17 09:47 Accupril - PO 40 mg DAILY YAHIR Administration ASSESSMENT/PLAN: This is a 52 year old male with uncontrolled diabetes presents with left lower extremity erythema, admitted for cellulitis. #Sepsis secondary Left lower extremity cellulitis : sepsis resolved; cellulitis improving -on zosyn day #8 -restart vanco at 1500mg IVPB q12h; get vanvo level before the next fourth dose ; keep level 15-20 -cultures negative -appreciate ID #diabetes mellitus req insulin -diabetic teaching -insulin needle teaching -insulin 32 U with sliding scale -BGM ACHS -avni endocrine #hx of HTN: stable cont accupril 40mg qd #hx of asthma: stable -singulair VTE proph; heparin sq Disposition: couple more days of IV antibiotics then dc home Case discussed with attending Dr. Jer Morelos PGY-2 Problem List - Problems (1) Cellulitis Code(s): L03.90 - CELLULITIS, UNSPECIFIED Qualifiers: Site of cellulitis: extremity Site of cellulitis of extremity: lower extremity Laterality: left Qualified Code(s): L03.116 - Cellulitis of left lower limb (2) Diabetic foot ulcer Code(s): E11.621 - TYPE 2 DIABETES MELLITUS WITH FOOT ULCER; L97.509 - NON- PRESSURE CHRONIC ULCER OTH PRT UNSP FOOT W UNSP SEVERITY Qualifiers: Diabetic foot ulcer location: toe Diabetes mellitus type: other specified ( including STACEY) Laterality: left Non-pressure ulcer stage: unspecified non- pressure ulcer stage Qualified Code(s): E13.621 - Other specified diabetes mellitus with foot ulcer; L97.529 - Non-pressure chronic ulcer of other part of left foot with unspecified severity; L97.529 - Non-pressure chronic ulcer of other part of left foot with unspecified severity; L97.529 - Non-pressure chronic ulcer of other part of left foot with unspecified severity; L97.529 - Non-pressure chronic ulcer of other part of left foot with unspecified severity (3) Sepsis Code(s): A41.9 - SEPSIS, UNSPECIFIED ORGANISM Qualifiers: Sepsis type: sepsis due to unspecified organism Qualified Code(s): A41.9 - Sepsis, unspecified organism Visit type - Emergency Visit Emergency Visit: Yes ED Registration Date: 06/27/17 Care time: The patient presented to the Emergency Department on the above date and was hospitalized for further evaluation of their emergent condition. - New Patient This patient is new to me today: Yes Date on this admission: 07/04/17 - Critical Care Critical Care patient: No
[2017-07-04] MEDS: VANCOMYCIN 1,500 MG in DEXTROSE 5%-WATER - 500 ML IVPB SCH (16:39)
[2017-07-04] MEDS: MONTELUKAST NA 10 MG TABLET PO SCH (22:58)
[2017-07-04] MEDS: INSULIN DETEMIR 100 UNITS/ML MDV SQ SCH (23:01)
[2017-07-05] MEDS ORDERED: PT OWN MED DRAWER 7, Y5N ONE ×3 (01:50→21:27)
[2017-07-05] MEDS: PIPERACILLIN/TAZOB 4.5 GM 4.5 GM/100 ML BAG IVPB SCH ×4 (03:43→21:54)
[2017-07-05] MEDS: VANCOMYCIN 1,500 MG in DEXTROSE 5%-WATER - 500 ML IVPB SCH ×2 (04:19→15:54)
[2017-07-05] MEDS: HEPARIN NA (PORCINE) 5,000 UNITS/ML 1ML VIAL SQ SCH ×3 (06:47→21:53)
[2017-07-05] MEDS: INSULIN SLIDING SCALE (NOVOLOG) 1 VIAL SQ SCH ×3 (06:48→21:53)
[2017-07-05] MEDS ORDERED: INSULIN (NOVOLOG) ASPART 100 UNITS/ML 10ML VIAL ONE (07:04)
[2017-07-05 08:13] LABS: BASO % 0.3 % (0-2.0); HEMATOCRIT 39.2 % (35.4-49); HEMOGLOBIN 13.2 GM/dL (11.7-16.9); LYMPH % 12.1 % (8-40); MCH 29.8 pg (25.7-33.7); MCHC 33.7 g/dl (32.0-35.9); MEAN CELL VOLUME 88.4 fl (80-96); MEAN PLT VOLUME 7.4 fl (7.5-11.1); MONO % 8.7 % (3.8-10.2); NEUT % 75.9 % (42.8-82.8); PLATELET COUNT 362 K/MM3 (134-434); RBC 4.43 M/mm3 (4.00-5.60); RDW 13.1 % (11.9-15.9); WHITE BLOOD COUNT 7.3 K/mm3 (4.0-10.0)
[2017-07-05 08:43] LABS: CHLORIDE 99 mmol/L (98-107); POTASSIUM 4.1 mmol/L (3.5-5.1); SODIUM 137 mmol/L (136-145)
[2017-07-05 08:49] LABS: ALK PHOS 170 U/L (45-117); BILIRUBIN,TOTAL 0.6 mg/dL (0.2-1.0); BLOOD UREA NITROGEN 9 mg/dL (7-18); CALCIUM 8.1 mg/dL (8.5-10.1); CO2 32 mmol/L (21-32); CREATININE 1.3 mg/dL (0.7-1.3); GLUCOSE,RANDOM 138 mg/dL (74-106); SGOT/AST 21 U/L (15-37); SGPT/ALT 40 U/L (12-78); TOT PROT 6.5 g/dl (6.4-8.2)
[2017-07-05 08:51] LABS: ANION GAP 6 (8-16)
[2017-07-05] MEDS: DOCUSATE SODIUM 100 MG CAPSULE (FP) PO SCH (09:44)
[2017-07-05] MEDS: POLYETHYLENE GLYCOL 3350 119 GM BTL PO SCH (09:44)
[2017-07-05] MEDS: QUINAPRIL HCL 40 MG TABLET (FP) PO SCH (09:44)
[2017-07-05] MEDS: ACETAMINOPHEN 325 MG TABLET (FP) PO PRN ×2 (10:18→21:52)
--- NOTE | 2017-07-05 10:49 | PN ---
Teaching Attending Note Name of Resident: Wiley Osullivan ATTENDING PHYSICIAN STATEMENT I saw and evaluated the patient. I reviewed the resident's note and discussed the case with the resident. I agree with the resident's findings and plan as documented. SUBJECTIVE: low grade fever early this am . pain is better. was able to walk OBJECTIVE: NAD CV: RRR Lungs: CTAB Ext: no edema on RLE . LLE with improved erythema , warmth and edema.broken blister on medial posterior calf. broken blister on L lateral calf with clear drainage. tenderness. ASSESSMENT AND PLAN: 52 y/o man with h/o DM , HTN, morbid obesity , DM II who presented with L leg painand erythema and was found to have LLE cellulitis 1- LLE cellulitis.leg exam improved. had low grade fever last night - cont zosyn , - cont vanco at 1500 mg q12hr, unless felt unnecessary by ID - vanco trough before am dose - if cont to have fever , then might need CT imaging to r/o deeper collection 2- DM II: - cont levemir 32 units - SSI - need insulin at dc 3- HTN: cont ACEI 4- ASthma , stable. cont inhalers Dispo : OC
[2017-07-05] MEDS: oxyCODONE HCL 5 MG TABLET PO PRN ×2 (12:10→21:52)
--- NOTE | 2017-07-05 12:49 | PN ---
Progress Note (short form) - Note Progress Note: no complaints Vital Signs Period Temp Pulse Resp BP Sys/Sewell Pulse Ox Last 24 Hr 98.2 F-100.1 F 73-84 20-20 156-158/76-94 98 cor-rrr lungs clear leg improves to improve- less erythema CBC, BMP 07/05/17 07:20 07/05/17 07:20 Microbiology 07/03/17 06:30 Leg - Left Lower Gram Stain - Final 07/03/17 06:30 Leg - Left Lower Wound Culture - Final NO GROWTH AFTER 48 HOURS INCUBATION 06/27/17 19:26 Blood - Peripheral Venous Blood Culture - Final NO GROWTH AFTER 5 DAYS INCUBATION 06/27/17 18:06 Blood - Peripheral Venous Blood Culture - Final NO GROWTH AFTER 5 DAYS INCUBATION a/p soft tissue infection of the left lower leg vancomycin trough ordered continue vancomycin and zosyn
[2017-07-05] MEDS: MONTELUKAST NA 10 MG TABLET PO SCH (21:52)
[2017-07-05] MEDS: INSULIN DETEMIR 100 UNITS/ML MDV SQ SCH (21:53)
--- NOTE | 2017-07-05 23:50 | PN ---
Physical Exam: SUBJECTIVE: Patient seen and examined at bedside, No new complaints. States leg appears better to him today. OBJECTIVE: Vital Signs Period Temp Pulse Resp BP Sys/Sewell Pulse Ox Last 24 Hr 98.2 F-100.1 F 73-84 18-20 156-158/72-94 GENERAL: The patient is awake, alert, and fully oriented, in no acute distress. HEAD: Normal with no signs of trauma. NECK: Trachea midline, full range of motion, supple. LUNGS: Breath sounds equal, clear to auscultation bilaterally, no wheezes, no crackles, no accessory muscle use. HEART: Regular rate and rhythm, S1, S2 without murmur, rub or gallop. ABDOMEN: Soft, nontender, nondistended, normoactive bowel sounds, no guarding, no rebound, no hepatosplenomegaly, no masses. EXTREMITIES: 2+ pulses, warm, well-perfused, no edema. NEUROLOGICAL: Cranial nerves II through X grossly intact. Normal speech, gait not observed. SKIN: left leg continues to be erythematous, but is improved today. Tense bullae have since ruptured. wounds are not purulent and appear improved. Laboratory Results - last 24 hr 07/05/17 07/05/17 07/05/17 06:47 07:20 07:20 WBC 7.3 RBC 4.43 Hgb 13.2 Hct 39.2 MCV 88.4 MCH 29.8 MCHC 33.7 RDW 13.1 Plt Count 362 MPV 7.4 L Neutrophils % 75.9 Lymphocytes % 12.1 Monocytes % 8.7 Eosinophils % 3.0 Basophils % 0.3 Sodium 137 Potassium 4.1 Chloride 99 Carbon Dioxide 32 D Anion Gap 6 L BUN 9 D Creatinine 1.3 Creat Clearance w eGFR 57.53 POC Glucometer 135 Random Glucose 138 H D Calcium 8.1 L Total Bilirubin 0.6 D AST 21 D ALT 40 D Alkaline Phosphatase 170 H Total Protein 6.5 Albumin 2.0 L 07/05/17 07/05/17 07/05/17 11:47 16:39 21:51 WBC RBC Hgb Hct MCV MCH MCHC RDW Plt Count MPV Neutrophils % Lymphocytes % Monocytes % Eosinophils % Basophils % Sodium Potassium Chloride Carbon Dioxide Anion Gap BUN Creatinine Creat Clearance w eGFR POC Glucometer 140 176 166 Random Glucose Calcium Total Bilirubin AST ALT Alkaline Phosphatase Total Protein Albumin Active Medications Generic Name Dose Route Start Last Admin Trade Name Freq PRN Reason Stop Dose Admin Acetaminophen 650 mg 06/28/17 13:10 07/05/17 21:52 Tylenol - PO 650 mg Q6H PRN Administration PAIN LEVEL 1 - 3 Docusate Sodium 100 mg 07/02/17 10:00 07/05/17 09:44 Colace - PO 100 mg DAILY YAHIR Administration Heparin Sodium (Porcine) 5,000 unit 06/28/17 06:00 07/05/17 21:53 Heparin - SQ 5,000 unit TID YAHIR Administration Piperacillin/Tazobactam/Dextrose 4.5 gm in 100 mls @ 200 mls/hr 06/28/17 15: 00 07/05/17 21:54 Zosyn 4.5gm Ivpb (Premix) IVPB 200 mls/hr Q6H-IV YAHIR Administration Protocol Vancomycin HCl 1,500 mg/ 500 mls @ 166.667 mls/hr 07/04/17 16:00 07/05/17 15: 54 Dextrose IVPB 166.667 mls/hr Q12H YAHIR Administration Insulin Aspart 1 vial 06/28/17 22:00 07/05/17 21:53 Novolog Vial Sliding Scale - SQ Not Given HS YAHIR Protocol Insulin Aspart 1 vial 07/01/17 11:45 07/05/17 16:52 Novolog Vial Sliding Scale - SQ 10 units TIDAC YAHIR Administration Protocol Insulin Detemir 32 units 07/02/17 22:00 07/05/17 21:53 Levemir Vial SQ 32 units HS YAHIR Administration Montelukast Sodium 10 mg 06/28/17 22:00 07/05/17 21:52 Singulair - PO 10 mg HS YAHIR Administration Oxycodone HCl 5 mg 07/02/17 19:50 07/05/17 21:52 Roxicodone - PO 5 mg Q6H PRN Administration PAIN LEVEL 4 - 6 Polyethylene Glycol 17 gm 07/03/17 10:00 07/05/17 09:44 Miralax (For Daily Use) - PO Not Given DAILY YAHIR Quinapril HCl 40 mg 07/01/17 10:00 07/05/17 09:44 Accupril - PO 40 mg DAILY YAHIR Administration ASSESSMENT/PLAN: The patient is a 52 yo m w/ PMH DM, HTN, HLD who is being admitted for sepsis 2/ 2 cellulitis #Sepsis 2/2 cellulitis likely 2/2 DM foot ulcer -wound cx negative -ID onboard -Zosyn 4.5 g Q6H (day 9) -Vancomycin held 2/2 high trough level; restarted at 1,500 mg BID (day 9) -Will continue healing process daily and guide treatment accordingly. #DM -endocrinology onboard -ISS TIDAC & HS -levemir 32u HS -BGM ACHS #HTN -c/w home quinapril 40 #asthma -c/w home motelukast -nebs PRN #FEN -no fluids indicated -lytes WNL -diabetic diet #Prophy -hep sq 5ku TID #Dispo -admit to med-surg Visit type - Emergency Visit Emergency Visit: Yes ED Registration Date: 06/27/17 Care time: The patient presented to the Emergency Department on the above date and was hospitalized for further evaluation of their emergent condition. - New Patient This patient is new to me today: No - Critical Care Critical Care patient: No
[2017-07-06] MEDS ORDERED: PT OWN MED DRAWER 7, Y5N ONE (03:42)
[2017-07-06] MEDS: PIPERACILLIN/TAZOB 4.5 GM 4.5 GM/100 ML BAG IVPB SCH ×2 (03:49→11:02)
[2017-07-06] MEDS: HEPARIN NA (PORCINE) 5,000 UNITS/ML 1ML VIAL SQ SCH ×2 (06:37→15:19)
[2017-07-06] MEDS: INSULIN SLIDING SCALE (NOVOLOG) 1 VIAL SQ SCH ×2 (06:37→11:58)
[2017-07-06] MEDS: QUINAPRIL HCL 40 MG TABLET (FP) PO SCH (11:03)
[2017-07-06] MEDS: DOCUSATE SODIUM 100 MG CAPSULE (FP) PO SCH (11:03)
[2017-07-06] MEDS: POLYETHYLENE GLYCOL 3350 119 GM BTL PO SCH (11:34)
[2017-07-06] MEDS ORDERED: INSULIN (NOVOLOG) ASPART 100 UNITS/ML 10ML VIAL ONE (11:53)
--- NOTE | 2017-07-06 13:08 | PN ---
Progress Note (short form) - Note Progress Note: Denies any complaints Blood sugar acceptable No hypos Vital Signs Period Temp Pulse Resp BP Sys/Sewell Pulse Ox Last 24 Hr 98.3 F-98.5 F 74-88 18-20 140-157/79-81 98-98 PE: AOx3 Neck: Supple, No JVD HEENT: PERRL ,EOMI Lungs: CTA CVS: S1S2 Abd: Benign EXT: Left leg dressing Neuro: NO focal deficit CMP Sodium 137 mmol/L (136-145) 07/05/17 07:20 Potassium 4.1 mmol/L (3.5-5.1) 07/05/17 07:20 Chloride 99 mmol/L (98-107) 07/05/17 07:20 Carbon Dioxide 32 mmol/L (21-32) D 07/05/17 07:20 Anion Gap 6 (8-16) L 07/05/17 07:20 BUN 9 mg/dL (7-18) D 07/05/17 07:20 Creatinine 1.3 mg/dL (0.7-1.3) 07/05/17 07:20 Creat Clearance w eGFR 57.53 (>60) 07/05/17 07:20 POC Glucometer 162 UNITS (80-120) 07/06/17 11:24 Random Glucose 138 mg/dL (74-106) H D 07/05/17 07:20 Hemoglobin A1c % 10.6 % (4.8-6.0) H 06/29/17 07:02 Lactic Acid 2.1 mmol/L (0.0-2.0) H 06/28/17 00:29 Calcium 8.1 mg/dL (8.5-10.1) L 07/05/17 07:20 Phosphorus 3.0 mg/dL (2.5-4.9) 07/02/17 07:50 Magnesium 2.3 mg/dL (1.8-2.4) 07/02/17 07:50 Total Bilirubin 0.6 mg/dL (0.2-1.0) D 07/05/17 07:20 AST 21 U/L (15-37) D 07/05/17 07:20 ALT 40 U/L (12-78) D 07/05/17 07:20 Alkaline Phosphatase 170 U/L (45-117) H 07/05/17 07:20 C-Reactive Protein 23.2 MG/DL (0.00-0.3) H 06/28/17 15:15 Total Protein 6.5 g/dl (6.4-8.2) 07/05/17 07:20 Albumin 2.0 g/dl (3.4-5.0) L 07/05/17 07:20 Current Medications Generic Name Dose Route Start Last Admin Trade Name Freq PRN Reason Stop Dose Admin Acetaminophen 650 mg 06/28/17 13:10 07/05/17 21:52 Tylenol - PO 650 mg Q6H PRN Administration PAIN LEVEL 1 - 3 Docusate Sodium 100 mg 07/02/17 10:00 07/06/17 11:03 Colace - PO 100 mg DAILY YAHIR Administration Heparin Sodium (Porcine) 5,000 unit 06/28/17 06:00 07/06/17 06:37 Heparin - SQ 5,000 unit TID YAHIR Administration Piperacillin/Tazobactam/Dextrose 4.5 gm in 100 mls @ 200 mls/hr 06/28/17 15: 00 07/06/17 11:02 Zosyn 4.5gm Ivpb (Premix) IVPB 200 mls/hr Q6H-IV YAHIR Administration Protocol Insulin Aspart 1 vial 06/28/17 22:00 07/05/17 21:53 Novolog Vial Sliding Scale - SQ Not Given HS [facility] Protocol Insulin Aspart 1 vial 07/01/17 11:45 07/06/17 11:58 Novolog Vial Sliding Scale - SQ 10 units TIDAC YAHIR Administration Protocol Insulin Detemir 32 units 07/02/17 22:00 07/05/17 21:53 Levemir Vial SQ 32 units HS YAHIR Administration Montelukast Sodium 10 mg 06/28/17 22:00 07/05/17 21:52 Singulair - PO 10 mg HS YAHIR Administration Oxycodone HCl 5 mg 07/02/17 19:50 07/05/17 21:52 Roxicodone - PO 5 mg Q6H PRN Administration PAIN LEVEL 4 - 6 Polyethylene Glycol 17 gm 07/03/17 10:00 07/06/17 11:34 Miralax (For Daily Use) - PO Not Given DAILY YAHIR Quinapril HCl 40 mg 07/01/17 10:07/06/17 11:03 Accupril - PO 40 mg DAILY YAHIR Administration AP: Left leg Cellulitis with drainage Left big toe ulcer T2DM HTN HLD A1c 10.6 Continue Levemir 32 units daily at HS Novolog SS coverage IV Abx Will hold oral antidiabetic agents for now Will restart Metformin as outpt. Pt says his does Insulin pen injections and will learn from her to do it at home Pt understands he will be going home on Insulin Problem List - Problems (1) Cellulitis Code(s): L03.90 - CELLULITIS, UNSPECIFIED Qualifiers: Site of cellulitis: extremity Site of cellulitis of extremity: lower extremity Laterality: left Qualified Code(s): L03.116 - Cellulitis of left lower limb (2) Diabetic foot ulcer Code(s): E11.621 - TYPE 2 DIABETES MELLITUS WITH FOOT ULCER; L97.509 - NON- PRESSURE CHRONIC ULCER OTH PRT UNSP FOOT W UNSP SEVERITY Qualifiers: Diabetic foot ulcer location: toe Diabetes mellitus type: other specified ( including STACEY) Laterality: left Non-pressure ulcer stage: unspecified non- pressure ulcer stage Qualified Code(s): E13.621 - Other specified diabetes mellitus with foot ulcer; L97.529 - Non-pressure chronic ulcer of other part of left foot with unspecified severity; L97.529 - Non-pressure chronic ulcer of other part of left foot with unspecified severity; L97.529 - Non-pressure chronic ulcer of other part of left foot with unspecified severity; L97.529 - Non-pressure chronic ulcer of other part of left foot with unspecified severity
[2017-07-06 14:46] VITALS: BP 172/80; PULSE 74; TEMP 98.7
--- NOTE | 2017-07-06 14:50 | PN ---
Progress Note (short form) - Note Progress Note: no complaints day #9 antibiotics feels well ambulating wants to go home Vital Signs Period Temp Pulse Resp BP Sys/Sewell Pulse Ox Last 24 Hr 98.3 F-98.7 F 74-88 18-20 140-172/79-81 98-98 foot continues to improve less erythema and induration ulcers are drying no purulence CBC, BMP 07/05/17 07:20 07/05/17 07:20 Microbiology 07/03/17 06:30 Leg - Left Lower Gram Stain - Final 07/03/17 06:30 Leg - Left Lower Wound Culture - Final NO GROWTH AFTER 48 HOURS INCUBATION 06/27/17 19:26 Blood - Peripheral Venous Blood Culture - Final NO GROWTH AFTER 5 DAYS INCUBATION 06/27/17 18:06 Blood - Peripheral Venous Blood Culture - Final NO GROWTH AFTER 5 DAYS INCUBATION a/p soft tissue infection of the left lower leg will plan for switch to po antibiotics and f/u in our office with Dr Jung and with crystal lapper for the toe clindamycin and suprax for one week d/w hospitalist
--- NOTE | 2017-07-06 19:20 | PN ---
Progress Note (short form) - Note Progress Note: Subjective: pain has improved Objective: Vital Signs: Laboratory Results - last 24 hr 07/05/17 07/06/17 07/06/17 21:51 04:00 06:14 POC Glucometer 166 137 Vancomycin Pre-Dose 20.5 H* D 07/06/17 11:24 POC Glucometer 162 Vancomycin Pre-Dose Physical Exam: NAD CV: RRR Lungs: CTAB Ext: no edema on RLE . LLE with much improved erythema , warmth and edema.broken blister on medial posterior calf. broken blister on L lateral calf with clear drainage. tenderness. ASSESSMENT AND PLAN: 52 y/o man with h/o DM , HTN, morbid obesity , DM II who presented with L leg painand erythema and was found to have LLE cellulitis 1- LLE cellulitis.much improved - d/w Dr. hanson. clinda and vantin as out pt x 1 week - f/u With ID as out pt in 1 week 2- DM II: - cont levemir 32 units - SSI -cont metformin at dc . dc gemipiride and sxagliptin at dc 3- HTN: cont ACEI dc home . dc plan was d/w him in details Visit type - Emergency Visit Emergency Visit: Yes ED Registration Date: 06/27/17 Care time: The patient presented to the Emergency Department on the above date and was hospitalized for further evaluation of their emergent condition. - New Patient This patient is new to me today: No - Critical Care Critical Care patient: No
--- NOTE | 2017-07-06 21:17 | EKG ---
Test Reason : Blood Pressure : / mmHG Vent. Rate : 070 BPM Atrial Rate : 070 BPM P-R Int : 174 ms QRS Dur : 108 ms QT Int : 426 ms P-R-T Axes : 060 005 021 degrees QTc Int : 460 ms NORMAL SINUS RHYTHM NORMAL ECG NO PREVIOUS ECGS AVAILABLE Confirmed by SHAGGY HODGE MD ([id number]) on 07/06/2017 9:17:32 PM Referred By: Denny CARTWRIGHT Confirmed By:SHAGGY HODGE MD
--- NOTE | 2017-07-07 21:58 | DS ---
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 Vee, for a red, swollen, hot right calf in the setting of left toe ulcer. In the ED, the right calf was found to be erythematous, warm, swollen and tender. His WBC count was found to be 18.3 with a creatinine of 1.5 and a lactic acid of 2.1. He had a fever to 102.8 and a heard rate of 126. A CXR was negative for acute pathology and a foot XR was negative for osteomyelitis. A Lower extremity ultrasound was negative for DVT. He was admitted for the treatment of sepsis secondary to left leg cellulitis. Infectious disease was consulted. Endocrinology was consulted. Podiatry was consulted. He was treated with vancomycin, zosyn, Levemir and a novolog sliding scale. His home medications were verified and continued. The patient improved clinically on the above therapy. His elevated white blood cell count resolved and his vitals stabilized. He remained afebrile for over 24 hrs. He was discharged home on Vantin 400mg Q12h for 14 days and cleocin 300mg for 9 days. He was also discharged home on 32 units levemir daily and an insulin sliding scale. He was instructed to follow up with his PCP, an infectious disease doctor and an refractory bricklayer. Date of Discharge: 07/07/17 Minutes to complete discharge: 43 Discharge Summary Reason For Visit: CELLULITIS, SEPSIS, DIABETIC FOOT ULCER Condition: Improved - Instructions Diet, Activity, Other Instructions: -please follow with your primary care doctor -please follow with Dr. Jung in 1 week -please follow with Endocrine in 10 days . -check your sugar 3 times before each meal, writ down the log and take it to Dr. Oden . -take levemir 32 units as prescribed and sliding scale insulin as instructed. if sugar INJECT ( UNITS ) < 150 0 151-200 2 201-250 4 251-300 6 301-350 8 351-400 10 >400 12 AND CARMEN md - PLEASE STOP GLEMIPERIDE and Onglyza ( for diabetes ) - apply xeroform on the opoen wounds then wrap with kerlex. - please call MD with worsening erythema , pain, or fever . - keep the wounds dry for the first few days - do not exceed more than 3 grams of tylenol a day as it can affect your liver Good luck Referrals: Genaro Jung MD [Staff Physician] - Marnie Fatima MD [Non Staff, Medical] - ON STAFF,NOT [Primary Care Provider] - Janki Oden MD [Staff Physician] - Disposition: HOME - Home Medications Comprehensive Discharge Medication List: Ambulatory Orders Lovastatin 80 mg PO HS 08/21/16 Metformin HCl [Metformin HCl ER] 1,000 mg PO BID 08/21/16 Montelukast Na [Singulair -] 10 mg PO HS 08/21/16 Quinapril HCl [Accupril -] 40 mg PO DAILY 08/21/16 Budesonide/Formeterol Fumarate [SYMBICORT 160/4.5mcg -] 2 inh PO BID 07/01/17 Acetaminophen [Tylenol .Regular Strength -] 650 mg PO Q6H PRN tablet 07/06/17 Cefpodoxime Proxetil [Vantin -] 400 mg PO Q12H #28 tablet 07/06/17 Clindamycin [Cleocin -] 300 mg PO Q8H #28 capsule 07/06/17 Insulin Aspart [Novolog Flexpen] 100 unit SQ AC #1 insuln.pen 07/06/17 Insulin Detemir [Levemir Flextouch] 100 unit SQ HS #1 insuln.pen 07/06/17 Pen Needle, Diabetic [Insulin Pen Needle] 1 each MC ASDIR #200 dis.needle This patient is new to me today: No Emergency Visit: Yes ED Registration Date: 06/27/17 Care time: The patient presented to the Emergency Department on the above date and was hospitalized for further evaluation of their emergent condition. Critical Care patient: No - Discharge Referral Referred to [facility] No
== END 2017-07-06 15:56 | disposition home or self-care (01) | DRG 872 ==
LOC: JER 17:47 → JERBED 23:44 → UNDOADMIN 06-28 00:27 → JERBED 06-28 00:27 → J6S 06-28 01:58
PROVIDERS: ADMIT Internal Medicine; ATTEND Internal Medicine
DX: A41.9 Sepsis, unspecified organism (principal); L03.116 Cellulitis of left lower limb; N17.9 Acute kidney failure, unspecified; Z68.41 Body mass index [BMI] 40.0-44.9, adult; E66.01 Morbid (severe) obesity due to excess calories; E11.621 Type 2 diabetes mellitus with foot ulcer; L97.529 Non-pressure chronic ulcer of other part of left foot with unspecified severity; I10 Essential (primary) hypertension; J44.9 Chronic obstructive pulmonary disease, unspecified; R50.9 Fever, unspecified; D72.829 Elevated white blood cell count, unspecified; E78.5 Hyperlipidemia, unspecified
CPT/HCPCS: 36415; 71045-TC-FY; 73630-TC-LT; 76882; 80048; 80053; 82962; 83036; 83605; 83735; 84100; 85025; 85027; 85610; 85651; 86140; 87040; 87070; 87205; 87389; 93005; 93010; 93971-TC; 97116-GP; 97161-GP; 99283-25; G0480; J0131; J1644; J7030

== ENCOUNTER 2018-02-01 20:56 | Inpatient (IN) | payer BC ==
[2018-02-01 21:05] VITALS: BMI 39.2
--- NOTE | 2018-02-01 22:31 | PDOC ---
Attending Attestation - Resident Resident Name: Momo Alvarez - ED Attending Attestation I have performed the following: I have examined & evaluated the patient, The case was reviewed & discussed with the resident, I agree w/resident's findings & plan, Exceptions are as noted - HPI HPI: 02/01/18 23:53 The patient is a 52-year-old male with history significant for DM2, HTN, HLD, asthma, PVD, and hx of cellulitis of the L. leg presents to the emergency department with a wound to the R. great toe. The patient presents with redness to the R. great toe since earlier today, accompanied with clear discharge, denies purulent discharge. Per prior records, the patient was admitted to the hospital on January 16, for wound debridement of the R. great toe. The patient states during the stay a biopsy of the bone was obtained, which was significant for osteomyelitis and MRSA. The patient states he was discharged on the with a PICC line and prescribed Daptomycin 6 mg/kg. The patient reports being compliant with his medications till today, patient states he was about to take the medication when his auction block clerk suggested he follow up at the ED. The patient reports following up on Friday for stitch removal. The patient states initially there was no discoloration or pain, but on Friday night he started to experience soreness to the toe. The patient report he is scheduled to follow up with podiatry on Friday. Denies fever, chills, numbness, tingling, bloody discharge or changes in urinary or bowel habits. Allergies: NKA Social history: No past or present use of tobacco, alcohol or recreational drug use. Surgical history: None reported PCP: Paresh Jerome MD Environmental Remediation Consultant: Dr. Vee ID: Dr. Hensley. - Physicial Exam PE: 02/02/18 00:02 GENERAL: Awake, alert, and fully oriented, in no acute distress EYES: Sclera anicteric, conjunctiva clear ENT: Moist mucosa NECK: Normal ROM, supple LUNGS: Breath sounds equal, clear to auscultation bilaterally. No wheezes, and no crackles HEART: Regular rate and rhythm, normal S1 and S2, no murmurs, rubs or gallops ABDOMEN: Soft, nontender, normoactive bowel sounds. No guarding, no rebound. No masses EXTREMITIES: PICC line in R medial arm in place, no erythema or ttp surrounding line. Normal range of motion, no edema. No clubbing or cyanosis. No cords, erythema, or tenderness. WWP. NEUROLOGICAL: Normal speech, cranial nerves intact, 5/5 strength in all 4 extremities, normal sensation to light touch in all 4 extremities, normal cerebellar exam, normal gait, normal tone SKIN: R great toe with warmth, erythema, and mild ttp throughout. +plantar defect is callused with granulation tissue, and clear serious drainage. No necrosis. - Medical Decision Making 02/02/18 00:08 52yo M presents to the ED with 24 hours of increasing redness of R great toe while currently on daptomycin via PICC line for osteomyelitis of same toe. Pt compliant with daily dapto, states only missed 1 day of abx last Friday when PICC line was clotted (was TPA-ed and cleared). Concern for failure of IV abx. Case discussed with Dr. Lyn (covering for Dr. Coelho), will broaden coverage to vanc/zosyn and admit. 02/02/18 01:25 Case signed out to admitting team by Dr. Alvarez, accepted for admission Case discussed in detail with admitting physician including history, physical exam and ancillary studies. Admitting physician has assumed care for the patient, will follow all pending diagnostics and will complete the evaluation and treatment.
--- NOTE | 2018-02-01 22:41 | PDOC ---
History of Present Illness - General Chief Complaint: Wound Stated Complaint: RIGHT FOOT PAIN Time Seen by Provider: 02/01/18 21:34 History Source: Patient Exam Limitations: No Limitations - History of Present Illness Initial Comments: 02/01/18 22:15 52 yo male pmh of type 2 diabetes HTN, HLD, PVD, asthma presents to the ED with right great toe redness and clear drainage, status post R great toe osteomylitis biopsy currently on Daptomycin administered out pt through PICC line for a total 5 weeks. Sutures from biopsy removed Wed by Podiatry without complications. States yesterday redness started and today had clear fluid drainage from the site where the suture was removed. Denies F/C/N/V, new or worsening swelling in the lower leg from baseline, CP or SOB. Past History - Past Medical History Allergies/Adverse Reactions: Allergies Allergy/AdvReac Type Severity Reaction Status Date / Time No Known Allergies Allergy Verified 02/01/18 21:05 Home Medications: Ambulatory Orders Lovastatin 80 mg PO HS 08/21/16 Metformin HCl [Metformin HCl ER] 1,000 mg PO BID 08/21/16 Montelukast Na [Singulair -] 10 mg PO HS 08/21/16 Quinapril HCl [Accupril -] 40 mg PO DAILY 08/21/16 Insulin Aspart [Novolog Flexpen] 100 unit SQ AC #1 insuln.pen 07/06/17 Pen Needle, Diabetic [Insulin Pen Needle] 1 each MC ASDIR #200 dis.needle Budesonide/Formeterol Fumarate [SYMBICORT 160/4.5mcg -] 2 puff IH DAILY Clopidogrel Bisulfate [Plavix] 75 mg PO DAILY 01/13/18 Insulin Detemir [Levemir Flextouch] 36 unit SQ HS 01/13/18 Collagenase Clostridium Hist. [Santyl -] 1 applic TP DAILY #1 tube 01/19/18 Daptomycin [Cubicin (Restricted To Id) -] 900 mg IVPB DAILY vial 01/19/18 Picc Line Flush [Picc Line Flush -] 8 ml IVPUSH PRN PRN ml 01/19/18 Asthma: Yes Cancer: No Cardiac Disorders: No CVA: No COPD: No CHF: No Dementia: No Diabetes: Yes GI Disorders: No Disorders: No HTN: Yes Hypercholesterolemia: Yes Liver Disease: No Seizures: No Thyroid Disease: No - Surgical History Abdominal Surgery: No Appendectomy: No Cardiac Surgery: No Cholecystectomy: No Lung Surgery: No Neurologic Surgery: No Orthopedic Surgery: No - Immunization History Immunization Up to Date: Yes - Suicide/Smoking/Psychosocial Hx Smoking History: Never smoked Hx Alcohol Use: No Drug/Substance Use Hx: No Review of Systems - Review of Systems Constitutional: No: Chills, Fever, Weakness Respiratory: No: Shortness of Breath Cardiac (ROS): No: Chest Pain ABD/GI: No: Constipated, Diarrhea, Nausea, Vomiting : No: Burning, Dysuria, Hematuria Musculoskeletal: No: Back Pain Integumentary: Yes: Other (erythema to right great toe with drainage of clear fluid) Neurological: No: Numbness, Paresthesia, Weakness *Physical Exam - Vital Signs Last Vital Signs Temp Pulse Resp BP Pulse Ox 98.8 F 88 18 193/89 H 98 02/01/18 21:01 02/01/18 21:01 02/01/18 21:01 02/01/18 21:01 02/01/18 21:01 - Physical Exam General Appearance: Yes: Nourished, Appropriately Dressed. No: Apparent Distress HEENT: positive: EOMI Respiratory/Chest: positive: Lungs Clear, Normal Breath Sounds. negative: Crackles, Rales, Wheezing Cardiovascular: positive: Regular Rhythm, Regular Rate, S1, S2, Edema (equal bilateral pitting). negative: JVD, Murmur Vascular Pulses: Dorsalis-Pedis (R): 3+, Doralis-Pedis (L): 3+ Gastrointestinal/Abdominal: positive: Normal Bowel Sounds, Flat, Soft. negative : Pulsatile Mass, Guarding, Rebound, Tenderness Extremity: positive: Normal Capillary Refill Integumentary: positive: Normal Color, Dry, Warm, Other (right great toe erythema, well demarcated, no streaking ) Neurologic: positive: Fully Oriented, Alert, Normal Mood/Affect, Normal Response ED Treatment Course - LABORATORY CBC & Chemistry Diagram: 02/01/18 22:50 02/01/18 22:50 Medical Decision Making - Medical Decision Making 52 yo history of recent right great toe biopsy for osteo presents with redness and swelling to right great toe Exam: bilateral pitting edema that is symmetrical and chronic. Right great toe well demarcated erythema without streaking. No pus or drainage visualized DDX: osteo, cellulites 02/02/18 01:08 Pt states he does not want to stay and wants to leave AMA but his convinced him to stay. Spoke with Dr. Lyn who advises to admit pt with Mady/Rosa due to failure of outpatient Dapto *DC/Admit/Observation/Transfer Diagnosis at time of Disposition: Cellulitis Qualifiers: Site of cellulitis: extremity Site of cellulitis of extremity: toe Laterality: right Qualified Code(s): L03.031 - Cellulitis of right toe - Discharge Dispostion Condition at time of disposition: Stable Decision to Admit order: Yes - Referrals Referrals: Paresh Rosen MD [Primary Care Provider] - - Patient Instructions - Post Discharge Activity
[2018-02-01 22:59] LABS: BASO % 0.5 % (0-2.0); EOS % 4.7 % (0-4.5); HEMATOCRIT 42.6 % (35.4-49); HEMOGLOBIN 14.6 GM/dL (11.7-16.9); LYMPH % 17.8 % (8-40); MCH 28.9 pg (25.7-33.7); MCHC 34.2 g/dl (32.0-35.9); MEAN CELL VOLUME 84.6 fl (80-96); MONO % 8.1 % (3.8-10.2); NEUT % 68.9 % (42.8-82.8); PLATELET COUNT 293 K/MM3 (134-434); RBC 5.04 M/mm3 (4.00-5.60); RDW 13.4 % (11.9-15.9); WHITE BLOOD COUNT 8.6 K/mm3 (4.0-10.0)
[2018-02-01 23:26] LABS: URINE APPEARANCE CLEAR; URINE BILIRUBIN NEGATIVE (<2.0 mg/dL); URINE COLOR LTYELLOW; URINE GLUCOSE (UA) 3+ (NEGATIVE); URINE KETONE NEGATIVE (NEGATIVE); URINE LEUK ESTERASE NEGATIVE (NEGATIVE); URINE NITRITE NEGATIVE (NEGATIVE); URINE PROTEIN 2+ (NEGATIVE); URINE UROBILINOGEN NEGATIVE mg/dL (0.2-1.0)
[2018-02-01 23:31] LABS: URINE MUCUS RARE
[2018-02-01 23:32] LABS: ALBUMIN 3.3 g/dl (3.4-5.0); ALK PHOS 89 U/L (45-117); ANION GAP 8 MMOL/L (8-16); BILIRUBIN,TOTAL 0.7 mg/dL (0.2-1); BLOOD UREA NITROGEN 17 mg/dL (7-18); CALCIUM 8.9 mg/dL (8.5-10.1); CHLORIDE 100 mmol/L (98-107); CO2 30 mmol/L (21-32); GLUCOSE,RANDOM 213 mg/dL (74-106); POTASSIUM 3.9 mmol/L (3.5-5.1); SGOT/AST 22 U/L (15-37); SGPT/ALT 31 U/L (13-61); SODIUM 137 mmol/L (136-145); TOT PROT 7.7 g/dl (6.4-8.2)
[2018-02-01] MEDS ORDERED: VANCOMYCIN 1,000 MG in DEXTROSE 5%-WATER - 250 ML IVPB ONE (23:41)
[2018-02-01] MEDS ORDERED: PIPERACILLIN/TAZOB 4.5 GM 4.5 GM in DEXTROSE 5%-WATER 100 ML IVPB ONE (23:42)
[2018-02-02] MEDS ORDERED: VANCOMYCIN 1 GRAM (PRE-DOCKED) 1,000 MG/250 ML BAG IVPB ONE (00:05)
--- NOTE | 2018-02-02 04:21 | PN ---
Teaching Attending Note Name of Resident: Richar Sam ATTENDING PHYSICIAN STATEMENT I saw and evaluated the patient. Chart, data, imaging reviewed. I reviewed the resident's note and discussed the case with the resident. I agree with the resident's findings and plan as documented. SUBJECTIVE: 52yo man with uncontrolled DM, obesity, PVD, uncontrolled HTN, is sent to hospital by his salesforce business analyst after he was found to have a red, swellen right hallux. 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 He was discharged on IV daptomycin to complete abx course. He returned to hospital after he was found to have worsening toe erythema. As per patient it worsened after he had his sutures removed. OBJECTIVE: Last Vital Signs Temp Pulse Resp BP Pulse Ox 98.8 F 88 18 193/89 H 98 02/01/18 21:01 02/01/18 21:01 02/01/18 21:01 02/01/18 21:01 02/01/18 21:01 General- nad, obese, nontoxic heent- atraumatic, normocephalic cv -s1+s2+rrr chest clear abdomen - obese ext- right hallux erythematous, warm, opening to skin, no discharge Abnormal Lab Results 02/01/18 02/01/18 02/01/18 22:50 22:50 22:50 Eosinophils % 4.7 H Random Glucose 213 H Albumin 3.3 L Urine Protein 2+ H Urine Glucose (UA) 3+ H Urine Blood 1+ H ASSESSMENT AND PLAN: #52yo man with Right toe MRSA OM with worsening wound, likely poor wound healing from uncontrolled glucose vs trauma from sutures vs superinfection. Less likely treatment failure. -c/w IV daptomycin -check CK -add zosyn -blood cultures sent -podiatry evaluation for possible further debridement, culture -ID consult -local wound care #Uncontrolled DM -strict insulin sliding scale -basal insulin -diabetic diet DVT ppx- heparin sc
--- NOTE | 2018-02-02 04:21 | HP ---
CHIEF COMPLAINT: Infection of R great toe PCP: Paresh Jerome MD Basket Patcher: Dr. Vee ID: Dr. Hensley HISTORY OF PRESENT ILLNESS: 52M w/ pmhx of DMII, HTN, HLD, PVD, asthma presented to the ED with complaints of R great toe redness that started this past Friday. Of note, he was recently discharged from this hospital earlier this month and treated with IV Daptomycin for MRSA+ osteomyelitis. During his previous admission, a bone biopsy was done after which stitches were placed at the incision site. 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 His toe gradually worsened with clear drainage and he was recommended by his supervisor research kennel to go to the hospital for further evaluation. He admits to minimal pain on his R hallus. He also admits to chronic lower extremity swelling. Denies fever/chills, headaches/dizziness, nausea/vomiting, chest pain , sob, abd pain, urinary/bowel symptoms, blood in urine/stool, problems walking. ER course was notable for: (1) BP 193/89, WBC 8.6 (2) Vanc 1gm, Zosyn 4.5 given (3) ID consult ordered, R foot x ray ordered Recent Travel: Denies PAST MEDICAL HISTORY: As per HPI PAST SURGICAL HISTORY: R great toe biopsy Social History: Smoking: Denies Alcohol: Denies Drugs: Denies Family History: Denies Allergies No Known Allergies Allergy (Verified 02/01/18 21:05) HOME MEDICATIONS: Home Medications Medication Instructions Recorded Lovastatin 80 mg PO HS 08/21/16 Metformin HCl [Metformin HCl ER] 1,000 mg PO BID 08/21/16 Montelukast Na [Singulair -] 10 mg PO HS 08/21/16 Quinapril HCl [Accupril -] 40 mg PO DAILY 08/21/16 Insulin Aspart [Novolog Flexpen] 100 unit SQ AC #1 insuln.pen 07/06/17 Pen Needle, Diabetic [Insulin Pen 1 each MC ASDIR #200 dis.needle 07/06/17 Needle] Budesonide/Formeterol Fumarate 2 puff IH DAILY 01/13/18 [SYMBICORT 160/4.5mcg -] Clopidogrel Bisulfate [Plavix] 75 mg PO DAILY 01/13/18 Insulin Detemir [Levemir Flextouch] 36 unit SQ HS 01/13/18 Collagenase Clostridium Hist. 1 applic TP DAILY #1 tube 01/19/18 [Santyl -] Daptomycin [Cubicin (Restricted 900 mg IVPB DAILY vial 01/19/18 To Id) -] Picc Line Flush [Picc Line Flush -] 8 ml IVPUSH PRN PRN ml 01/19/18 REVIEW OF SYSTEMS As per HPI PHYSICAL EXAMINATION Vital Signs - 24 hr 02/01/18 21:01 Temperature 98.8 F Pulse Rate 88 Respiratory 18 Rate Blood Pressure 193/89 H O2 Sat by Pulse 98 Oximetry (%) GENERAL: AAOx3. NAD. Resting comfortably. HEENT: AT/NC. EOMI. SULEMA. Moist mucus membranes. NECK: Supple, no LAD/JVD. LUNGS: CTA B/L. No w/r/r noted. Symmetric chest rise. No accessory muscle use. HEART: Normal S1, S2. No murmurs noted. ABDOMEN: Obese. Soft, ND/NT +BS in all 4 Q's. No masses or bruits noted. MUSCULOSKELETAL: 2+ pedal edema b/l. 5/5 muscle strength in b/l u/l extremities. R hallux erythematous, swollen, nontender. R hallux desquamating ulcer on medial plantar surface, no visible discharge. NEUROLOGICAL: Normal speech. CN II-XII intact. B/l sensation intact. PSYCHIATRIC: Cooperative. Good eye contact. Appropriate mood and affect. SKIN: Warm, dry, normal turgor, normal capillary refill. Laboratory Results - last 24 hr 02/01/18 02/01/18 02/01/18 22:50 22:50 22:50 WBC 8.6 RBC 5.04 Hgb 14.6 Hct 42.6 MCV 84.6 MCH 28.9 MCHC 34.2 RDW 13.4 Plt Count 293 D MPV 8.0 Absolute Neuts (auto) 5.9 Neutrophils % 68.9 Lymphocytes % 17.8 D Monocytes % 8.1 Eosinophils % 4.7 H Basophils % 0.5 Nucleated RBC % 0 Sodium 137 Potassium 3.9 Chloride 100 Carbon Dioxide 30 Anion Gap 8 BUN 17 Creatinine 1.0 Creat Clearance w eGFR > 60 Random Glucose 213 H Calcium 8.9 Total Bilirubin 0.7 AST 22 ALT 31 Alkaline Phosphatase 89 Total Protein 7.7 Albumin 3.3 L Urine Color Ltyellow Urine Appearance Clear Urine pH 5.0 Ur Specific [place] 1.017 Urine Protein 2+ H Urine Glucose (UA) 3+ H Urine Ketones Negative Urine Blood 1+ H Urine Nitrite Negative Urine Bilirubin Negative Urine Urobilinogen Negative Ur Leukocyte Esterase Negative Urine WBC (Auto) <1 Urine RBC (Auto) 1 Urine Mucus Rare ASSESSMENT/PLAN: 52M w/ pmhx of DMII, HTN, HLD, PVD, asthma presented to the ED with complaints of R great toe redness admitted for R toe OM (+MRSA) with worsening wound. #R toe osteomyelitis +MRSA; 2/2 poor wound healing due to poor glucose control vs. trauma from suture removal vs. superinfection -Cont with Daptomycin 1g IVPB QD for MRSA coverage -Zosyn 4.5gm IVPB Q6H -blood/urine cultures ordered -ID/Podiatry consult for possible debridement if needed -Daily wound care -ESR/CRP/lactate ordered #DM; Glu 213 -Hold all home oral DM meds -Levemir 42U SQ HS (home dose) -BGMs ACHS -ISS ACHS #HTN; Pt initial BP 193/89. -Clonidine 0.2 mg PO QD Resume home meds: -Quinapril 40 mg PO QD #HLD Resume home med: -Lovastatin 80 mg PO HS #DVT Ppx -Heparin 5000U SQ TID #FEN -no IVf -recheck lytes in AM -Diabetic/Sodium-controlled diet dispo -Admit to med-surg Visit type - Emergency Visit Emergency Visit: Yes ED Registration Date: 02/02/18 Care time: The patient presented to the Emergency Department on the above date and was hospitalized for further evaluation of their emergent condition. - New Patient This patient is new to me today: Yes Date on this admission: 02/02/18 - Critical Care Critical Care patient: No
[2018-02-02] MEDS ORDERED: PIPERACILLIN/TAZOB 4.5 GM 4.5 GM in DEXTROSE 5%-WATER 100 ML IVPB ONE (06:00)
[2018-02-02] MEDS: HEPARIN NA (PORCINE) 5,000 UNITS/ML 1ML VIAL SQ SCH ×3 (06:26→21:27)
[2018-02-02] MEDS ORDERED: HEPARIN NA (PORCINE) 5,000 UNITS/ML 1ML VIAL ONE (07:15)
[2018-02-02] MEDS ORDERED: PIPERACILLIN/TAZOB 4.5 GM 4.5 GM/100 ML BAG IVPB ONE ×2 (07:16→13:18)
[2018-02-02 07:34] LABS: BASO % 0.2 % (0-2.0); HEMOGLOBIN 13.6 GM/dL (11.7-16.9); LYMPH % 13.6 % (8-40); MCH 28.6 pg (25.7-33.7); MEAN CELL VOLUME 84.2 fl (80-96); MEAN PLT VOLUME 8.1 fl (7.5-11.1); MONO % 7.9 % (3.8-10.2); NEUT % 73.3 % (42.8-82.8); PLATELET COUNT 235 K/MM3 (134-434); RBC 4.75 M/mm3 (4.00-5.60); RDW 13.2 % (11.9-15.9); WHITE BLOOD COUNT 6.7 K/mm3 (4.0-10.0)
[2018-02-02] MEDS: INSULIN SLIDING SCALE (NOVOLOG) 1 VIAL SQ SCH ×5 (08:00→21:28)
[2018-02-02 08:06] LABS: ALK PHOS 80 U/L (45-117); ANION GAP 9 MMOL/L (8-16); BILIRUBIN,TOTAL 0.9 mg/dL (0.2-1); BLOOD UREA NITROGEN 14 mg/dL (7-18); CALCIUM 8.5 mg/dL (8.5-10.1); CHLORIDE 103 mmol/L (98-107); CO2 26 mmol/L (21-32); CREATININE 0.8 mg/dL (0.55-1.3); GLUCOSE,RANDOM 252 mg/dL (74-106); POTASSIUM 4.1 mmol/L (3.5-5.1); SGOT/AST 12 U/L (15-37); SGPT/ALT 27 U/L (13-61); SODIUM 138 mmol/L (136-145); TOT PROT 6.6 g/dl (6.4-8.2)
[2018-02-02] MEDS ORDERED: INSULIN REGULAR HUMAN 100 UNITS/ML *VIAL ONE (08:52)
[2018-02-02] MEDS: cloNIDine HCL 0.1 MG TABLET PO SCH (09:28)
[2018-02-02] MEDS: QUINAPRIL HCL 40 MG TABLET (FP) PO SCH (09:28)
[2018-02-02] MEDS ORDERED: DAPTOMYCIN 1,000 MG in SODIUM CHLORIDE 50 ML IVPB SCH (10:00)
--- NOTE | 2018-02-02 11:13 | PN ---
Progress Note (short form) - Note Progress Note: ID Consult dictated Cellulitis R great toe Chronic osteomyelitis R great toe Diabetes mellitus Await c/s Empiric vancomycin/ zosyn
--- NOTE | 2018-02-02 11:36 | CONS ---
DATE OF CONSULTATION: DATE OF DICTATION: 02/02/2018 HISTORY: The patient is a 52-year-old diabetic male with a history of cellulitis of the left lower extremity and recently diagnosed osteomyelitis of the right great toe now readmitted with increased right great toe swelling and erythema. The patient was hospitalized at [facility] from January 13 through January 19. At that time, he had presented with an infected nonhealing ulcer of the right great toe. An MRI was performed and showed osteomyelitis of the proximal distal phalanx. A bone biopsy was performed and was inconclusive; however, clinically and radiographically, the patient had osteomyelitis diagnosis. Cultures at that time were positive for MRSA. He had received a course of vancomycin and Zosyn and was discharged on daptomycin. A PICC line was inserted, and plan was to complete a 6-week course of IV antibiotic therapy for osteomyelitis. The patient reports he was doing clinically well until Sunday, January 28, 2018. 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 He reports that over the next 2-3 days there were no significant changes; however, on Friday, January 31, he developed worsening erythema, warmth, and swelling of the great toe. It progressively worsened to the point where he presented to the emergency room. In the emergency room last night, he was noted to have marked swelling and erythema of the right great toe. He complains of pain. He denies any purulent drainage. No associated fever or chills. He had been tolerating the antibiotic therapy well without adverse reaction. His PICC line has been functioning. He has been adherent to the medications. PAST MEDICAL HISTORY: Positive for diabetes mellitus, hypertension, hyperlipidemia, peripheral vascular disease, asthma, history of moderately severe cellulitis of the left lower extremity in June 2017. PAST SURGICAL HISTORY: Status post bone biopsy. ALLERGIES: No known allergies. MEDICATIONS: Lovastatin, metformin, Singulair, Accupril, NovoLog, Plavix. SOCIAL HISTORY: Lives in the community with his significant other. Nonsmoker. SYSTEMS REVIEW: Neurologic: No loss of consciousness, seizure activity, focal weakness. Cardiac: Negative chest pain or palpitations. Respiratory: Negative cough or sputum production. Gastrointestinal: Negative vomiting or diarrhea. Genitourinary: Negative for urinary tract infection. LABORATORY DATA: White blood cell count 6.7, hematocrit 40, platelet count 235, creatinine 0.8. Urinalysis: Less than 1 white cells. PHYSICAL EXAMINATION: General: He is awake and alert. He is not acutely toxic appearing. Vital Signs: Temperature 98.1, blood pressure 162/83, pulse 82 and regular, respirations 16 per minute. HEENT: Sclerae anicteric. Heart: Sounds S1, S2. Lungs: Clear. Abdomen: Obese, soft, nontender. Extremities: Examination of the right lower extremity, there is an ulceration present on the medial aspect of the right great toe. It is approximately 1 x 2 cm with a fibrinous base. There is diffuse erythema involving the entire right great toe, which is swollen. There is no purulent drainage or foul odor. No lymphangitic streaking. No fluctuance or crepitus. IMPRESSION: 1. Cellulitis of the right great toe. 2. Chronic osteomyelitis of the right great toe. 3. Diabetes mellitus. 4. History of methicillin-resistant Staphylococcus aureus wound culture. PLAN: Suspect possible bacterial secondary infant in this patient on daptomycin for MRSA-infected foot wound and osteomyelitis. We will broad antimicrobial coverage with Zosyn 4.5 g IV piggyback every 8 hours. Continue coverage of MRSA with vancomycin 1250 g IV piggyback every 12 hours. Local wound care with Podiatry follow up. We will follow. Obtain sedimentation rate and C-reactive protein. Thank you for the kind referral. RADHA SALGADO M.D. [id number]
[2018-02-02] MEDS ORDERED: INSULIN (NOVOLOG) ASPART 100 UNITS/ML 10ML VIAL ONE (12:00)
[2018-02-02] MEDS: VANCOMYCIN 1,500 MG in DEXTROSE 5%-WATER - 500 ML IVPB SCH (12:34)
[2018-02-02] MEDS: PIPERACILLIN/TAZOB 4.5 GM 4.5 GM in DEXTROSE 5%-WATER 100 ML IVPB SCH ×4 (13:14→18:13)
[2018-02-02] MEDS ORDERED: PIPERACILLIN/TAZOBACTAM 4.5 GM VIAL IVPB ONE (17:56)
[2018-02-02] MEDS ORDERED: DEXTROSE 5%-WATER 100 ML IVPB ONE (17:57)
--- NOTE | 2018-02-02 21:17 | CONSULT ---
Consult Consult Specialty:: Podiatry - History of Present Illness Chief Complaint: Cellulitis of the right hallux History of Present Illness: Patient was admitted last night through the emergency room on my recommendation with cellulitis of the right hallux. He had bone biopsy recently that the confirmed the presence of osteomyelitis of the proximal and distal phalanx secondary to ulceration on the plantar interphalangeal joint of the hallux. Patient was placed on home IV Daptomycin. I have been performing topical wound care and protecting the toe with a modified cam walker boot. Patient reports that his antibiotic has been changed and the redness in the toe has resolved since last night. Patient is under the impression the Dr. Hensley will recommend discharge with home IV Zosyn and Vancomycin - History Source History Provided By: Medical Record (Deferred to admitting physician) - Past Medical History Cardio/Vascular: Yes: HTN Endocrine: Yes: Diabetes Mellitus, Other (HLD) - Alcohol/Substance Use Hx Alcohol Use: No - Smoking History Smoking history: Never smoked Home Medications - Allergies Allergies/Adverse Reactions: Allergies Allergy/AdvReac Type Severity Reaction Status Date / Time No Known Allergies Allergy Verified 02/01/18 21:05 - Home Medications Home Medications: Ambulatory Orders Lovastatin 80 mg PO HS 08/21/16 Metformin HCl [Metformin HCl ER] 1,000 mg PO BID 08/21/16 Montelukast Na [Singulair -] 10 mg PO HS 08/21/16 Quinapril HCl [Accupril -] 40 mg PO DAILY 08/21/16 Insulin Aspart [Novolog Flexpen] 100 unit SQ AC #1 insuln.pen 07/06/17 Pen Needle, Diabetic [Insulin Pen Needle] 1 each ASDIR #200 dis.needle Budesonide/Formeterol Fumarate [SYMBICORT 160/4.5mcg -] 2 puff IH DAILY Insulin Detemir [Levemir Flextouch] 42 unit SQ HS 01/13/18 Collagenase Clostridium Hist. [Santyl -] 1 applic TP DAILY #1 tube 01/19/18 Daptomycin [Cubicin (Restricted To Id) -] 900 mg IVPB DAILY vial 01/19/18 Picc Line Flush [Picc Line Flush -] 8 ml IVPUSH PRN PRN ml 01/19/18 Physical Exam Vital Signs: Vital Signs Temperature 98.3 F 02/02/18 16:56 Pulse Rate 85 02/02/18 16:56 Respiratory Rate 20 02/02/18 16:56 Blood Pressure 143/78 02/02/18 16:56 O2 Sat by Pulse Oximetry (%) 97 02/02/18 15:22 Wound/Incision: Yes: Other (Plantar wound remains at the right IPJ with fibrotic avascular base, some granulation tissue and no purulence. Dorsal biopsy site has opened with similar appearence.) Labs: CBC, BMP 02/02/18 06:45 02/02/18 06:45 Imaging - Results X-ray: Image Reviewed (Medial oblique image shows pathologic fracture and erosion of the medial condyle of the distal phalanx and the lateral condyle of the head of the proximal phalanx. Bone biopsy site is visualized on the medial surface of the proximal phalangeal head.) Assessment/Plan Assessment Chronic Osteomyelitis has not been sufficiently responsive the the IV Daptomycin and bone erosion and pathology fracture has occurred at the site. Cellulitis has been temporarily controlled but chronic osteomylitis is unlikely to resolved with antibiosis alone. I have recommended amputation at the metatarsal phalangeal joint right foot as the most likely way to resolve this problem. Plan After discussion with the patient we have agreed to administer two weeks of antibiotics and assess for signs of worsening of the bone erosion. If further degeneration is found using follow up x-ray, I will perform amputation at the metatarsal phalangeal joint. Thank you for the consultation request. Stanley Vee [facility] [phone]
--- NOTE | 2018-02-02 21:25 | EKG ---
Test Reason : Blood Pressure : / mmHG Vent. Rate : 082 BPM Atrial Rate : 082 BPM P-R Int : 190 ms QRS Dur : 098 ms QT Int : 386 ms P-R-T Axes : 056 010 022 degrees QTc Int : 450 ms NORMAL SINUS RHYTHM NORMAL ECG WHEN COMPARED WITH ECG OF 13-JAN-2018 00:32, NO SIGNIFICANT CHANGE WAS FOUND Confirmed by DIANA DAN MD ([id number]) on 02/02/2018 9:25:37 PM Referred By: Confirmed By:DIANA DAN MD
[2018-02-02] MEDS ORDERED: INSULIN (LEVEMIR) 100 UNITS/ML UNITS SQ SCH (22:00)
[2018-02-02] MEDS ORDERED: ATORVASTATIN CA 20 MG TABLET (FP) PO SCH (22:00)
[2018-02-03] MEDS: VANCOMYCIN 1,500 MG in DEXTROSE 5%-WATER - 500 ML IVPB SCH ×2 (00:19→13:30)
[2018-02-03] MEDS ORDERED: PIPERACILLIN/TAZOBACTAM 4.5 GM VIAL IVPB ONE ×2 (01:39→10:04)
[2018-02-03] MEDS ORDERED: DEXTROSE 5%-WATER 100 ML IVPB ONE ×2 (01:39→10:04)
[2018-02-03] MEDS: PIPERACILLIN/TAZOB 4.5 GM 4.5 GM in DEXTROSE 5%-WATER 100 ML IVPB SCH ×2 (02:08→10:10)
[2018-02-03] MEDS: INSULIN SLIDING SCALE (NOVOLOG) 1 VIAL SQ SCH ×2 (06:35→13:46)
[2018-02-03] MEDS: HEPARIN NA (PORCINE) 5,000 UNITS/ML 1ML VIAL SQ SCH ×2 (06:40→13:30)
[2018-02-03] MEDS ORDERED: PT OWN MED DRAWER 7, Y5N ONE ×2 (10:03→13:28)
[2018-02-03] MEDS: cloNIDine HCL 0.1 MG TABLET PO SCH (10:09)
[2018-02-03] MEDS: QUINAPRIL HCL 40 MG TABLET (FP) PO SCH (10:10)
--- NOTE | 2018-02-03 13:12 | DS ---
Physical Exam: SUBJECTIVE: Patient seen and examined OBJECTIVE: Vital Signs Period Temp Pulse Resp BP Sys/Sewell Pulse Ox Last 24 Hr 97.7 F-98.3 F 70-85 16-20 120-143/56-82 97-97 PHYSICAL EXAM GENERAL: The patient is awake, alert, and fully oriented, in no acute distress. HEAD: Normal with no signs of trauma. EYES: PERRL, extraocular movements intact, sclera anicteric, conjunctiva clear. ENT: Ears normal, nares patent, oropharynx clear without exudates, moist mucous membranes. NECK: Trachea midline, full range of motion, supple. LUNGS: Breath sounds equal, clear to auscultation bilaterally, no wheezes, no crackles, no accessory muscle use. HEART: Regular rate and rhythm, S1, S2 without murmur, rub or gallop. ABDOMEN: Soft, nontender, nondistended, normoactive bowel sounds, no guarding, no rebound, no hepatosplenomegaly, no masses. EXTREMITIES: 2+ pulses, warm, well-perfused, no edema. NEUROLOGICAL: Cranial nerves II through XII grossly intact. Normal speech, gait not observed. PSYCH: Normal mood, normal affect. SKIN: Warm, dry, normal turgor, no rashes or lesions noted. LABS Laboratory Results - last 24 hr 02/02/18 02/02/18 02/02/18 13:21 18:08 20:44 ESR 45 H POC Glucometer 333 242 02/03/18 02/03/18 06:31 12:18 ESR POC Glucometer 219 210 HOSPITAL COURSE: Date of Admission:02/02/18 Date of Discharge: 02/03/18 Discharge Summary Reason For Visit: CELLULITIS OF GREAT TOE OF RIGHT FOOT Current Active Problems Cellulitis (Acute) Condition: Stable - Instructions Referrals: Paresh Rosen MD [Primary Care Provider] - - Home Medications Comprehensive Discharge Medication List: Ambulatory Orders Lovastatin 80 mg PO HS 08/21/16 Metformin HCl [Metformin HCl ER] 1,000 mg PO BID 08/21/16 Montelukast Na [Singulair -] 10 mg PO HS 08/21/16 Quinapril HCl [Accupril -] 40 mg PO DAILY 08/21/16 Insulin Aspart [Novolog Flexpen] 100 unit SQ AC #1 insuln.pen 07/06/17 Pen Needle, Diabetic [Insulin Pen Needle] 1 each MC ASDIR #200 dis.needle Budesonide/Formeterol Fumarate [SYMBICORT 160/4.5mcg -] 2 puff IH DAILY Insulin Detemir [Levemir Flextouch] 42 unit SQ HS 01/13/18 Collagenase Clostridium Hist. [Santyl -] 1 applic TP DAILY #1 tube 01/19/18 Daptomycin [Cubicin (Restricted To Id) -] 900 mg IVPB DAILY vial 01/19/18 Picc Line Flush [Picc Line Flush -] 8 ml IVPUSH PRN PRN ml 01/19/18
--- NOTE | 2018-02-03 14:26 | PN ---
Progress Note, Physician History of Present Illness: Reports marked improvement , great toe Decreased swelling/ erythema No drainage Seen by podiatry - Current Medication List Current Medications: Active Medications Atorvastatin Calcium (Lipitor -) 20 mg PO HS [facility] Last Admin: 02/02/18 21:28 Dose: 20 mg Clonidine (Catapres -) 0.2 mg PO DAILY [facility] Last Admin: 02/03/18 10:09 Dose: 0.2 mg Heparin Sodium (Porcine) (Heparin -) 5,000 unit SQ TID [facility] Last Admin: 02/03/18 13:30 Dose: 5,000 unit Vancomycin HCl 1,500 mg/ (Dextrose) 500 mls @ 250 mls/hr IVPB BID@0000,1200 [facility] ; Protocol Last Admin: 02/03/18 13:30 Dose: 250 mls/hr Piperacillin Sod/Tazobactam (Sod 4.5 gm/ Dextrose) 100 mls @ 200 mls/hr IVPB Q8H-IV [facility]; Protocol Last Admin: 02/03/18 10:10 Dose: 200 mls/hr Insulin Aspart (Novolog Vial Sliding Scale -) 1 vial SQ ACHS [facility]; Protocol Last Admin: 02/03/18 13:46 Dose: 4 unit Insulin Detemir (Levemir Vial) 42 units SQ HS [facility] Last Admin: 02/02/18 21:28 Dose: 42 units Quinapril HCl (Accupril -) 40 mg PO DAILY [facility] Last Admin: 02/03/18 10:10 Dose: 40 mg - Objective Vital Signs: Vital Signs Temperature 97.7 F 02/03/18 07:18 Pulse Rate 72 02/03/18 07:18 Respiratory Rate 20 02/03/18 07:18 Blood Pressure 142/78 02/03/18 07:18 O2 Sat by Pulse Oximetry (%) 97 02/02/18 21:00 Constitutional: Yes: No Distress Cardiovascular: Yes: Regular Rate and Rhythm, S1, S2 Respiratory: Yes: CTA Bilaterally Gastrointestinal: Yes: Normal Bowel Sounds Extremities: Yes: Other (decreased erythema/swelling great toe No drainage) Labs: CBC, BMP 02/02/18 06:45 02/02/18 06:45 Assessment/Plan Cellulitis/ osteomyelitis great toe Clinically worsened on 3w daptomycin ? secondary wound infection s/p suture removal Will complete additional 3w course of therapy with vancomycin/ cefepime
[2018-02-03 14:32] VITALS: BP 123/68; PULSE 90; TEMP 98.4
== END 2018-02-03 16:35 | disposition home or self-care (01) | DRG 603 ==
LOC: JER 20:56 → JERBED 02-02 01:24 → J8W 02-02 16:35
PROVIDERS: ADMIT Internal Medicine; ATTEND Nurse Practitioner Acute Care
DX: L03.031 Cellulitis of right toe (principal); M86.671 Other chronic osteomyelitis, right ankle and foot; E11.51 Type 2 diabetes mellitus with diabetic peripheral angiopathy without gangrene; E11.65 Type 2 diabetes mellitus with hyperglycemia; E11.69 Type 2 diabetes mellitus with other specified complication; I10 Essential (primary) hypertension; E78.5 Hyperlipidemia, unspecified; J45.909 Unspecified asthma, uncomplicated; Z79.4 Long term (current) use of insulin; E66.9 Obesity, unspecified; Z68.39 Body mass index [BMI] 39.0-39.9, adult
CPT/HCPCS: 36415; 73630-TC-RT-FY; 80053; 81003; 81015; 82962; 85025; 85651; 86140; 87040; 87086; 93005; 93010; 99285-25; J0735; J1644

== ENCOUNTER 2023-05-19 07:48 | Day surgery (SDC) | payer OTHER ==
[2023-05-19 07:58] VITALS: BMI 35.5
[2023-05-19 12:01] LABS: BASO % 0.7 % (0-2.0); EOS % 2.7 % (0-4.5); HEMATOCRIT 44.4 % (35.4-49); HEMOGLOBIN 15.5 GM/dL (11.7-16.9); LYMPH % 18.4 % (8-40); MCH 30.1 pg (25.7-33.7); MEAN CELL VOLUME 86.1 fl (80-96); MEAN PLT VOLUME 7.5 fl (7.5-11.1); MONO % 7.3 % (3.8-10.2); NEUT % 70.9 % (42.8-82.8); PLATELET COUNT 311 10^3/uL (134-434); RBC 5.15 M/mm3 (4.00-5.60); RDW 13.4 % (11.9-15.9); WHITE BLOOD COUNT 8.4 K/mm3 (4.0-10.0)
[2023-05-19 12:17] LABS: INR 1.07 (0.83-1.09); PROTHROMBIN TIME (PATIENT) 12.4 SEC (9.7-13.0)
[2023-05-19 12:20] LABS: ACTIVATED PTT 27.4 SECONDS (25.2-36.5)
[2023-05-19 12:21] LABS: POTASSIUM 4.5 mmol/L (3.5-5.1)
[2023-05-19 12:26] LABS: ALBUMIN 3.4 g/dl (3.4-5.0); BLOOD UREA NITROGEN 22.5 mg/dL (7-18)
[2023-05-19 12:31] LABS: BILIRUBIN,TOTAL 0.7 mg/dL (0.2-1)
[2023-05-19] MEDS ORDERED: HEPARIN NA (PORCINE) 5,000 UNITS/ML 1ML VIAL ONE (13:15)
[2023-05-19] MEDS ORDERED: LIDOCAINE HCL 1%, 10 MG/ML (20ML VIAL) ONE (13:29)
[2023-05-19] MEDS ORDERED: PROPOFOL 20 ML ONE ×4 (14:29→15:45)
[2023-05-19] MEDS ORDERED: MIDAZOLAM HCL 2 MG/2 ML SINGLE DOSE VIAL ONE ×2 (14:29→14:34)
[2023-05-19] MEDS ORDERED: SUCCINYLCHOLINE CHLORIDE 200 MG/10 ML SYRINGE ONE (14:29)
[2023-05-19] MEDS: ceFAZolin SODIUM 1 GM VIAL IVPB ONE (14:30)
[2023-05-19] MEDS: LIDOCAINE HCL 1%, 10 MG/ML (20ML VIAL) INF ONE ×3 (14:48)
[2023-05-19] MEDS: HEPARIN NA (PORCINE) 5,000 UNITS/ML 1ML VIAL SQ ONE ×2 (14:49)
[2023-05-19 17:43] VITALS: BP 143/65; PULSE 67; RESP 18; TEMP 98
== END 2023-05-19 18:13 | disposition home or self-care (01) ==
LOC: JER 07:48 → UNDOADMIN 09:29 → JERBED 09:29 → JASU-SURG 09:29
PROVIDERS: ATTEND Surgery Vascular Surgery
PROC: 047P3ZZ Dilation of Right Anterior Tibial Artery, Percutaneous Approach (ICD-10-PCS; principal; 2023-05-19 14:00)
DX: E11.621 Type 2 diabetes mellitus with foot ulcer (principal); E11.51 Type 2 diabetes mellitus with diabetic peripheral angiopathy without gangrene; Z79.4 Long term (current) use of insulin; L97.519 Non-pressure chronic ulcer of other part of right foot with unspecified severity
CPT/HCPCS: 37228; C1885; 0241U-QW; 36415; 76000-TC-FY; 80053; 85025; 85610; 85730; 86140; 93005; 93010; 94760; 99285-25; C1760; C1769; C1887; J1644

== ENCOUNTER 2023-07-23 14:27 | Inpatient (IN) | payer OTHER ==
[2023-07-23 17:08] LABS: BASO % 0.5 % (0-2.0); EOS % 1.6 % (0-4.5); HEMATOCRIT 35.1 % (35.4-49); LYMPH % 10.1 % (8-40); MCH 29.1 pg (25.7-33.7); MCHC 34.2 g/dl (32.0-35.9); MEAN CELL VOLUME 85.1 fl (80-96); MONO % 8.6 % (3.8-10.2); NEUT % 79.2 % (42.8-82.8); PLATELET COUNT 433 10^3/uL (134-434); RBC 4.13 M/mm3 (4.00-5.60); RDW 13.5 % (11.9-15.9); WHITE BLOOD COUNT 11.1 K/mm3 (4.0-10.0)
[2023-07-23 17:17] LABS: INR 1.26 (0.83-1.09); PROTHROMBIN TIME (PATIENT) 14.6 SEC (9.7-13.0)
[2023-07-23 17:20] LABS: ACTIVATED PTT 25.4 SECONDS (25.2-36.5)
[2023-07-23] MEDS ORDERED: PIPERACILLIN/TAZOB 4.5 GM 4.5 GM/100 ML BAG IVPB ONE (17:24)
[2023-07-23 17:30] LABS: CALCIUM 8.4 mg/dL (8.5-10.1)
[2023-07-23 17:31] LABS: ALBUMIN 2.5 g/dl (3.4-5.0); MAGNESIUM 2.7 mg/dL (1.8-2.4)
[2023-07-23 17:34] LABS: CREATININE 1.3 mg/dL (0.55-1.3)
[2023-07-23] MEDS: PIPERACILLIN/TAZOB 4.5 GM 4.5 GM in DEXTROSE 5%-WATER 100 ML IVPB ONE (17:34)
[2023-07-23 17:35] LABS: TOT PROT 7.2 g/dl (6.4-8.2)
[2023-07-23 17:40] LABS: BILIRUBIN,TOTAL 0.9 mg/dL (0.2-1)
[2023-07-23 17:52] LABS: ERYTHROCYTE SEDIMENTATION RATE 97 mm/hr (0-20)
[2023-07-23] MEDS: VANCOMYCIN PREMIX 1.75 GM 1,750 MG/350 ML PIGGYBACK IVPB ONE (19:29)
[2023-07-23] MEDS ORDERED: INSULIN (NOVOLOG) ASPART 100 UNITS/ML 10ML VIAL ONE (22:50)
[2023-07-23] MEDS: INSULIN ASPART SLIDING SCALE (NOVOLOG) 1 VIAL SQ SCH (22:55)
[2023-07-24] MEDS ORDERED: PIPERACILLIN/TAZOB 3.375 GM 3.375 GM in DEXTROSE 5%-WATER - 50 ML IVPB SCH (03:00)
[2023-07-24] MEDS: PIPERACILLIN/TAZOB 3.375 GM 3.375 GM in DEXTROSE 5%-WATER - 50 ML IVPB SCH ×2 (03:12→10:04)
[2023-07-24 03:52] VITALS: BMI 35.4
[2023-07-24 08:05] LABS: HEMATOCRIT 31.8 % (35.4-49); HEMOGLOBIN 11.3 GM/dL (11.7-16.9); MCH 30.4 pg (25.7-33.7); MCHC 35.6 g/dl (32.0-35.9); MEAN CELL VOLUME 85.3 fl (80-96); MEAN PLT VOLUME 7.4 fl (7.5-11.1); PLATELET COUNT 359 10^3/uL (134-434); RBC 3.73 M/mm3 (4.00-5.60); RDW 13.4 % (11.9-15.9); WHITE BLOOD COUNT 8.8 K/mm3 (4.0-10.0)
[2023-07-24 08:08] LABS: POTASSIUM 4.2 mmol/L (3.5-5.1)
[2023-07-24 08:17] LABS: CALCIUM 7.7 mg/dL (8.5-10.1)
[2023-07-24 08:18] LABS: ALBUMIN 2.1 g/dl (3.4-5.0); BLOOD UREA NITROGEN 39.7 mg/dL (7-18); MAGNESIUM 2.6 mg/dL (1.8-2.4)
[2023-07-24 08:21] LABS: CREATININE 1.3 mg/dL (0.55-1.3); PHOSPHOROUS 3.6 mg/dL (2.5-4.9)
[2023-07-24 08:22] LABS: BILIRUBIN,TOTAL 0.8 mg/dL (0.2-1); TOT PROT 6.2 g/dl (6.4-8.2)
[2023-07-24] MEDS ORDERED: PATIENT'S OWN MEDICATION (NON-FORMULARY) (Valsartan/Hydrochlorothiazide [Valsartan-Hctz 32 PO SCH (10:00)
[2023-07-24] MEDS ORDERED: VANCOMYCIN 2,000 MG in DEXTROSE 5%-WATER - 500 ML IVPB SCH (10:00)
[2023-07-24] MEDS: CLOPIDOGREL BISULFATE 75 MG TABLET (FP) PO SCH (10:04)
[2023-07-24] MEDS: ENOXAPARIN NA (PORCINE) 40 MG/0.4 ML DISP.SYRIN SQ SCH (10:04)
[2023-07-24] MEDS: VALSARTAN 160 MG TABLET PO SCH (10:04)
[2023-07-24] MEDS: ASPIRIN 81 MG CHEWABLE TABLETS PO SCH (10:04)
[2023-07-24] MEDS: HYDROCHLOROTHIAZIDE 25 MG TABLET (FP) PO SCH (10:04)
[2023-07-24] MEDS: VANCOMYCIN/WATER 2 GRAMS 2,000 MG/400 ML PIGGYBACK IVPB ONE (10:06)
[2023-07-24] MEDS ORDERED: INSULIN (NOVOLOG) ASPART 100 UNITS/ML 10ML VIAL ONE ×2 (11:37→20:56)
[2023-07-24] MEDS: ACETAMINOPHEN 325 MG TABLET (FP) PO PRN (17:53)
[2023-07-24] MEDS: SODIUM CHLORIDE 1,000 ML IV SCH (17:55)
[2023-07-24] MEDS: COLLAGENASE CLOSTRIDIUM HIST. 30 GRAMS TUBE TP SCH (17:56)
[2023-07-24] MEDS: ATORVASTATIN CA 40 MG TABLET (FP) PO SCH (21:37)
[2023-07-25 10:11] LABS: POTASSIUM 4.3 mmol/L (3.5-5.1)
[2023-07-25 10:19] LABS: CALCIUM 8.1 mg/dL (8.5-10.1)
[2023-07-25 10:24] LABS: BILIRUBIN,TOTAL 0.6 mg/dL (0.2-1); TOT PROT 6.2 g/dl (6.4-8.2)
[2023-07-25] MEDS ORDERED: INSULIN (NOVOLOG) ASPART 100 UNITS/ML 10ML VIAL ONE ×2 (12:04→17:25)
[2023-07-25] MEDS ORDERED: ALBUTEROL SO4 2.5/IPRATROPIUM 0.5 INH SOL 3 ML VIAL.NEB. NEB PRN (12:56)
[2023-07-25] MEDS: DOCUSATE SODIUM 100 MG CAPSULE (FP) PO ONE (14:27)
[2023-07-25] MEDS: BUDESONIDE/FORMETEROL FUMARATE 160/4.5 mcg INHALER IH SCH (14:27)
[2023-07-25] MEDS: DOCUSATE SODIUM 100 MG CAPSULE (FP) PO SCH (21:25)
[2023-07-26] MEDS ORDERED: INSULIN (NOVOLOG) ASPART 100 UNITS/ML 10ML VIAL ONE ×3 (11:46→21:32)
[2023-07-27] MEDS ORDERED: INSULIN (NOVOLOG) ASPART 100 UNITS/ML 10ML VIAL ONE ×2 (11:14→16:46)
[2023-07-27 21:59] LABS: BASO % 0.4 % (0-2.0); EOS % 3.6 % (0-4.5); HEMATOCRIT 33.9 % (35.4-49); HEMOGLOBIN 11.4 GM/dL (11.7-16.9); LYMPH % 13.5 % (8-40); MCH 29.1 pg (25.7-33.7); MCHC 33.8 g/dl (32.0-35.9); MEAN CELL VOLUME 86.2 fl (80-96); MEAN PLT VOLUME 7.5 fl (7.5-11.1); MONO % 9.2 % (3.8-10.2); NEUT % 73.3 % (42.8-82.8); PLATELET COUNT 344 10^3/uL (134-434); RBC 3.93 M/mm3 (4.00-5.60); RDW 13.3 % (11.9-15.9); WHITE BLOOD COUNT 8.5 K/mm3 (4.0-10.0)
[2023-07-27 22:07] LABS: POTASSIUM 4.5 mmol/L (3.5-5.1)
[2023-07-27 22:11] LABS: ALBUMIN 1.9 g/dl (3.4-5.0); BLOOD UREA NITROGEN 16.5 mg/dL (7-18); CALCIUM 7.9 mg/dL (8.5-10.1)
[2023-07-27 22:15] LABS: CREATININE 0.9 mg/dL (0.55-1.3)
[2023-07-27 22:16] LABS: BILIRUBIN,TOTAL 0.4 mg/dL (0.2-1); TOT PROT 6.2 g/dl (6.4-8.2)
[2023-07-28 08:25] LABS: BASO % 0.2 % (0-2.0); EOS % 3.6 % (0-4.5); HEMATOCRIT 34.9 % (35.4-49); HEMOGLOBIN 11.9 GM/dL (11.7-16.9); LYMPH % 12.8 % (8-40); MCH 29.6 pg (25.7-33.7); MEAN CELL VOLUME 86.9 fl (80-96); MEAN PLT VOLUME 7.8 fl (7.5-11.1); MONO % 7.8 % (3.8-10.2); NEUT % 75.6 % (42.8-82.8); PLATELET COUNT 366 10^3/uL (134-434); RBC 4.01 M/mm3 (4.00-5.60); RDW 13.2 % (11.9-15.9); WHITE BLOOD COUNT 8.4 K/mm3 (4.0-10.0)
[2023-07-28 08:47] LABS: POTASSIUM 4.7 mmol/L (3.5-5.1)
[2023-07-28 09:08] LABS: BLOOD UREA NITROGEN 14.8 mg/dL (7-18); CALCIUM 8.6 mg/dL (8.5-10.1); MAGNESIUM 1.9 mg/dL (1.8-2.4)
[2023-07-28 09:11] LABS: CREATININE 0.9 mg/dL (0.55-1.3)
[2023-07-28 09:13] LABS: BILIRUBIN,TOTAL 0.5 mg/dL (0.2-1); TOT PROT 6.6 g/dl (6.4-8.2)
[2023-07-28] MEDS ORDERED: INSULIN (NOVOLOG) ASPART 100 UNITS/ML 10ML VIAL ONE (20:58)
[2023-07-29] MEDS ORDERED: INSULIN (NOVOLOG) ASPART 100 UNITS/ML 10ML VIAL ONE ×3 (05:32→21:10)
[2023-07-29 08:19] LABS: BASO % 0.2 % (0-2.0); EOS % 3.6 % (0-4.5); HEMATOCRIT 38.1 % (35.4-49); HEMOGLOBIN 13.2 GM/dL (11.7-16.9); LYMPH % 12.9 % (8-40); MCH 29.6 pg (25.7-33.7); MCHC 34.6 g/dl (32.0-35.9); MEAN CELL VOLUME 85.6 fl (80-96); MEAN PLT VOLUME 7.8 fl (7.5-11.1); MONO % 6.8 % (3.8-10.2); NEUT % 76.5 % (42.8-82.8); PLATELET COUNT 466 10^3/uL (134-434); RBC 4.46 M/mm3 (4.00-5.60); RDW 13.3 % (11.9-15.9); WHITE BLOOD COUNT 8.4 K/mm3 (4.0-10.0)
[2023-07-29 08:58] LABS: POTASSIUM 4.7 mmol/L (3.5-5.1)
[2023-07-29 09:02] LABS: ALBUMIN 2.3 g/dl (3.4-5.0); BLOOD UREA NITROGEN 14.8 mg/dL (7-18); CALCIUM 9.2 mg/dL (8.5-10.1); MAGNESIUM 1.9 mg/dL (1.8-2.4)
[2023-07-29 09:05] LABS: CREATININE 0.9 mg/dL (0.55-1.3)
[2023-07-29 09:07] LABS: BILIRUBIN,TOTAL 0.5 mg/dL (0.2-1); TOT PROT 7.6 g/dl (6.4-8.2)
[2023-07-30] MEDS ORDERED: LIDOCAINE HCL 1%, 10 MG/ML (20ML VIAL) ONE (08:26)
[2023-07-30] MEDS ORDERED: BUPIVACAINE HCL/PF 0.5% (5MG/ML) 10 ML VIAL ONE (08:26)
[2023-07-30 08:34] LABS: BASO % 0.1 % (0-2.0); EOS % 3.1 % (0-4.5); HEMATOCRIT 36.5 % (35.4-49); HEMOGLOBIN 12.3 GM/dL (11.7-16.9); MCH 29.1 pg (25.7-33.7); MCHC 33.8 g/dl (32.0-35.9); MEAN CELL VOLUME 86.2 fl (80-96); MEAN PLT VOLUME 7.8 fl (7.5-11.1); NEUT % 76.8 % (42.8-82.8); PLATELET COUNT 397 10^3/uL (134-434); RBC 4.24 M/mm3 (4.00-5.60); RDW 13.3 % (11.9-15.9); WHITE BLOOD COUNT 8.1 K/mm3 (4.0-10.0)
[2023-07-30 08:42] LABS: INR 1.23 (0.83-1.09); PROTHROMBIN TIME (PATIENT) 14.2 SEC (9.7-13.0)
[2023-07-30 08:52] LABS: POTASSIUM 4.5 mmol/L (3.5-5.1)
[2023-07-30 09:00] LABS: ALBUMIN 2.2 g/dl (3.4-5.0); BLOOD UREA NITROGEN 19.8 mg/dL (7-18); CALCIUM 9.1 mg/dL (8.5-10.1)
[2023-07-30] MEDS ORDERED: PROPOFOL 20 ML ONE (09:00)
[2023-07-30] MEDS ORDERED: MIDAZOLAM HCL 2 MG/2 ML SINGLE DOSE VIAL ONE (09:00)
[2023-07-30 09:01] LABS: CREATININE 0.9 mg/dL (0.55-1.3)
[2023-07-30 09:02] LABS: BILIRUBIN,TOTAL 0.5 mg/dL (0.2-1); TOT PROT 7.1 g/dl (6.4-8.2)
[2023-07-30] MEDS: VANCOMYCIN 1,000 MG VIAL (RESTRICTED TO ID ONLY) IVPB ONE (09:18)
[2023-07-30] MEDS ORDERED: ALBUTEROL SO4 2.5/IPRATROPIUM 0.5 INH SOL 3 ML VIAL.NEB. NEB PRN (10:03)
[2023-07-30] MEDS ORDERED: ACETAMINOPHEN 325 MG TABLET (FP) PO PRN (10:03)
[2023-07-30] MEDS: INSULIN ASPART SLIDING SCALE (NOVOLOG) 1 VIAL SQ SCH ×3 (11:19→21:58)
[2023-07-30] MEDS ORDERED: INSULIN (NOVOLOG) ASPART 100 UNITS/ML 10ML VIAL ONE ×3 (12:13→20:35)
[2023-07-30] MEDS ORDERED: ENOXAPARIN NA (PORCINE) 40 MG/0.4 ML DISP.SYRIN SQ SCH (12:22)
[2023-07-30] MEDS: ASPIRIN 81 MG CHEWABLE TABLETS PO ONE (12:50)
[2023-07-30] MEDS: CLOPIDOGREL BISULFATE 75 MG TABLET (FP) PO ONE (12:50)
[2023-07-30] MEDS: VALSARTAN 160 MG TABLET PO ONE (12:50)
[2023-07-30] MEDS: CEFTRIAXONE 2 GM in DEXTROSE 5%-WATER 100 ML IVPB SCH (14:17)
[2023-07-30] MEDS ORDERED: INSULIN ASPART SLIDING SCALE (NOVOLOG) 1 VIAL SQ SCH (16:30)
[2023-07-30] MEDS: DOCUSATE SODIUM 100 MG CAPSULE (FP) PO SCH (21:23)
[2023-07-30] MEDS: ATORVASTATIN CA 40 MG TABLET (FP) PO SCH (21:23)
[2023-07-30] MEDS: INSULIN (LEVEMIR) 100 UNITS/ML UNITS SQ SCH (21:26)
[2023-07-30] MEDS: BUDESONIDE/FORMETEROL FUMARATE 160/4.5 mcg INHALER IH SCH (21:30)
[2023-07-31] MEDS ORDERED: INSULIN (NOVOLOG) ASPART 100 UNITS/ML 10ML VIAL ONE ×2 (05:47→20:55)
[2023-07-31] MEDS ORDERED: LIDOCAINE HCL 1%, 10 MG/ML (20ML VIAL) ONE (07:15)
[2023-07-31] MEDS ORDERED: HEPARIN NA (PORCINE) 5,000 UNITS/ML 1ML VIAL ONE (07:15)
[2023-07-31] MEDS ORDERED: MIDAZOLAM HCL 2 MG/2 ML SINGLE DOSE VIAL ONE ×3 (07:56→08:56)
[2023-07-31] MEDS ORDERED: FENTANYL CITRATE/PF 50 MCG/ML VIAL ONE ×5 (07:56→09:28)
[2023-07-31] MEDS: ceFAZolin SODIUM 1 GM VIAL IVPB ONE (08:10)
[2023-07-31] MEDS ORDERED: ceFAZolin SODIUM 1 GM VIAL ONE (08:12)
[2023-07-31 08:15] LABS: BASO % 0.2 % (0-2.0); EOS % 4.1 % (0-4.5); HEMATOCRIT 34.7 % (35.4-49); HEMOGLOBIN 12.1 GM/dL (11.7-16.9); LYMPH % 15.5 % (8-40); MCH 29.7 pg (25.7-33.7); MCHC 34.9 g/dl (32.0-35.9); MEAN CELL VOLUME 85.1 fl (80-96); MEAN PLT VOLUME 7.9 fl (7.5-11.1); MONO % 7.9 % (3.8-10.2); NEUT % 72.3 % (42.8-82.8); PLATELET COUNT 382 10^3/uL (134-434); RBC 4.07 M/mm3 (4.00-5.60); RDW 13.5 % (11.9-15.9); WHITE BLOOD COUNT 7.6 K/mm3 (4.0-10.0)
[2023-07-31] MEDS: LIDOCAINE HCL 1%, 10 MG/ML (20ML VIAL) INF ONE ×2 (08:21)
[2023-07-31 08:22] LABS: POTASSIUM 4.9 mmol/L (3.5-5.1)
[2023-07-31] MEDS: HEPARIN NA (PORCINE) 5,000 UNITS/ML 1ML VIAL SQ ONE ×4 (08:25→09:10)
[2023-07-31 08:44] LABS: ALBUMIN 2.2 g/dl (3.4-5.0)
[2023-07-31 08:47] LABS: CREATININE 0.9 mg/dL (0.55-1.3)
[2023-07-31 08:48] LABS: BILIRUBIN,TOTAL 0.4 mg/dL (0.2-1); TOT PROT 6.9 g/dl (6.4-8.2)
[2023-07-31] MEDS ORDERED: ONDANSETRON 4 MG/2 ML VIAL IVPUSH PRN ×2 (09:53→10:24)
[2023-07-31] MEDS ORDERED: ENOXAPARIN NA (PORCINE) 40 MG/0.4 ML DISP.SYRIN SQ SCH (10:00)
[2023-07-31] MEDS ORDERED: HYDROCHLOROTHIAZIDE 25 MG TABLET (FP) PO SCH (10:00)
[2023-07-31] MEDS ORDERED: ASPIRIN 81 MG CHEWABLE TABLETS PO SCH (10:00)
[2023-07-31] MEDS ORDERED: CLOPIDOGREL BISULFATE 75 MG TABLET (FP) PO SCH (10:00)
[2023-07-31] MEDS ORDERED: ALBUTEROL SO4 2.5/IPRATROPIUM 0.5 INH SOL 3 ML VIAL.NEB. NEB PRN (10:24)
[2023-07-31] MEDS ORDERED: ACETAMINOPHEN 325 MG TABLET (FP) PO PRN (10:24)
[2023-07-31] MEDS: ENOXAPARIN NA (PORCINE) 120 MG/0.8 ML DISP.SYRIN SQ SCH (10:45)
[2023-07-31] MEDS: ENOXAPARIN 100 MG, ENOXAPARIN 30 MG SQ SCH (11:13)
[2023-07-31] MEDS: ASPIRIN 81 MG CHEWABLE TABLETS PO ONE (12:14)
[2023-07-31] MEDS: VALSARTAN 160 MG TABLET PO ONE (12:14)
[2023-07-31] MEDS: INSULIN (LEVEMIR) 100 UNITS/ML UNITS SQ ONE (12:19)
[2023-07-31] MEDS: ENOXAPARIN NA (PORCINE) 120 MG/0.8 ML DISP.SYRIN SQ ONE (12:21)
[2023-07-31] MEDS: COLLAGENASE CLOSTRIDIUM HIST. 30 GRAMS TUBE TP SCH (12:21)
[2023-07-31] MEDS: VALSARTAN 160 MG TABLET PO SCH (12:23)
[2023-07-31] MEDS: LACTATED RINGERS SOLUTION 1,000 ML IV SCH (12:23)
[2023-07-31] MEDS: CEFTRIAXONE 1 GM in DEXTROSE 5%-WATER - 50 ML IVPB ONE (13:54)
[2023-07-31] MEDS: CEFTRIAXONE 2 GM in DEXTROSE 5%-WATER 100 ML IVPB ONE (16:29)
[2023-07-31] MEDS: INSULIN (NOVOLOG) ASPART 100 UNITS/ML 10ML VIAL SQ ONE (17:24)
[2023-07-31] MEDS: INSULIN (LEVEMIR) 100 UNITS/ML UNITS SQ SCH (21:49)
[2023-07-31] MEDS: ATORVASTATIN CA 40 MG TABLET (FP) PO SCH (21:49)
[2023-07-31] MEDS: DOCUSATE SODIUM 100 MG CAPSULE (FP) PO SCH (21:49)
[2023-07-31] MEDS: BUDESONIDE/FORMETEROL FUMARATE 160/4.5 mcg INHALER IH SCH (21:58)
[2023-07-31] MEDS ORDERED: DOCUSATE SODIUM 100 MG CAPSULE (FP) PO SCH (22:00)
[2023-07-31] MEDS ORDERED: INSULIN (LEVEMIR) 100 UNITS/ML UNITS SQ SCH (22:00)
[2023-08-01] MEDS ORDERED: INSULIN (NOVOLOG) ASPART 100 UNITS/ML 10ML VIAL ONE (05:36)
[2023-08-01 08:44] LABS: BASO % 0.2 % (0-2.0); EOS % 4.7 % (0-4.5); HEMATOCRIT 35.3 % (35.4-49); HEMOGLOBIN 11.8 GM/dL (11.7-16.9); LYMPH % 12.5 % (8-40); MCH 28.9 pg (25.7-33.7); MCHC 33.5 g/dl (32.0-35.9); MEAN CELL VOLUME 86.3 fl (80-96); MEAN PLT VOLUME 7.8 fl (7.5-11.1); MONO % 7.8 % (3.8-10.2); NEUT % 74.8 % (42.8-82.8); PLATELET COUNT 373 10^3/uL (134-434); RBC 4.09 M/mm3 (4.00-5.60); RDW 13.3 % (11.9-15.9); WHITE BLOOD COUNT 8.7 K/mm3 (4.0-10.0)
[2023-08-01 09:02] LABS: POTASSIUM 4.7 mmol/L (3.5-5.1)
[2023-08-01 09:05] LABS: CALCIUM 8.9 mg/dL (8.5-10.1)
[2023-08-01 09:06] LABS: ALBUMIN 2.1 g/dl (3.4-5.0); BLOOD UREA NITROGEN 20.2 mg/dL (7-18); MAGNESIUM 2.1 mg/dL (1.8-2.4)
[2023-08-01 09:09] LABS: CREATININE 0.8 mg/dL (0.55-1.3)
[2023-08-01 09:10] LABS: TOT PROT 6.6 g/dl (6.4-8.2)
[2023-08-01 09:11] LABS: BILIRUBIN,TOTAL 0.4 mg/dL (0.2-1)
[2023-08-01] MEDS: COLLAGENASE CLOSTRIDIUM HIST. 30 GRAMS TUBE TP SCH (09:47)
[2023-08-01] MEDS: CLOPIDOGREL BISULFATE 75 MG TABLET (FP) PO SCH (09:49)
[2023-08-01] MEDS: ASPIRIN 81 MG CHEWABLE TABLETS PO SCH (09:49)
[2023-08-01] MEDS: HYDROCHLOROTHIAZIDE 25 MG TABLET (FP) PO SCH (09:49)
[2023-08-01] MEDS: VALSARTAN 160 MG TABLET PO SCH (09:50)
[2023-08-01] MEDS: CEFTRIAXONE 2 GM in DEXTROSE 5%-WATER 100 ML IVPB SCH (09:51)
[2023-08-01] MEDS ORDERED: VALSARTAN 160 MG TABLET PO SCH (10:00)
[2023-08-01] MEDS ORDERED: CLOPIDOGREL BISULFATE 75 MG TABLET (FP) PO SCH (10:00)
[2023-08-01] MEDS: CLOPIDOGREL BISULFATE 75 MG TABLET (FP) PO ONE (11:15)
[2023-08-01] MEDS: INSULIN (NOVOLOG) ASPART 100 UNITS/ML 10ML VIAL SQ ONE (11:57)
[2023-08-01] MEDS: INSULIN (LEVEMIR) 100 UNITS/ML UNITS SQ SCH (22:37)
[2023-08-02 10:25] LABS: BASO % 0.2 % (0-2.0); HEMATOCRIT 36.3 % (35.4-49); HEMOGLOBIN 12.4 GM/dL (11.7-16.9); LYMPH % 13.3 % (8-40); MCH 29.3 pg (25.7-33.7); MCHC 34.1 g/dl (32.0-35.9); MEAN CELL VOLUME 85.9 fl (80-96); MEAN PLT VOLUME 7.9 fl (7.5-11.1); NEUT % 76.5 % (42.8-82.8); PLATELET COUNT 433 10^3/uL (134-434); RBC 4.23 M/mm3 (4.00-5.60); RDW 13.4 % (11.9-15.9); WHITE BLOOD COUNT 8.9 K/mm3 (4.0-10.0)
[2023-08-02 10:37] LABS: POTASSIUM 4.4 mmol/L (3.5-5.1)
[2023-08-02 10:45] LABS: ALBUMIN 2.3 g/dl (3.4-5.0); BLOOD UREA NITROGEN 22.4 mg/dL (7-18)
[2023-08-02 10:47] LABS: BILIRUBIN,TOTAL 0.4 mg/dL (0.2-1); CALCIUM 8.8 mg/dL (8.5-10.1); MAGNESIUM 2.3 mg/dL (1.8-2.4)
[2023-08-02 10:48] LABS: CREATININE 0.9 mg/dL (0.55-1.3)
[2023-08-02] MEDS ORDERED: INSULIN (NOVOLOG) ASPART 100 UNITS/ML 10ML VIAL ONE (11:57)
[2023-08-03 09:17] LABS: BASO % 0.2 % (0-2.0); EOS % 3.4 % (0-4.5); HEMATOCRIT 34.9 % (35.4-49); HEMOGLOBIN 12.1 GM/dL (11.7-16.9); LYMPH % 12.5 % (8-40); MCH 29.7 pg (25.7-33.7); MCHC 34.8 g/dl (32.0-35.9); MEAN CELL VOLUME 85.3 fl (80-96); MEAN PLT VOLUME 7.7 fl (7.5-11.1); MONO % 7.4 % (3.8-10.2); NEUT % 76.5 % (42.8-82.8); PLATELET COUNT 380 10^3/uL (134-434); RBC 4.09 M/mm3 (4.00-5.60); RDW 13.6 % (11.9-15.9); WHITE BLOOD COUNT 8.3 K/mm3 (4.0-10.0)
[2023-08-03 09:25] LABS: INR 1.23 (0.83-1.09); PROTHROMBIN TIME (PATIENT) 14.2 SEC (9.7-13.0)
[2023-08-03 09:47] LABS: POTASSIUM 4.5 mmol/L (3.5-5.1)
[2023-08-03 09:57] LABS: BLOOD UREA NITROGEN 24.3 mg/dL (7-18); CALCIUM 8.8 mg/dL (8.5-10.1)
[2023-08-03 09:59] LABS: ALBUMIN 2.2 g/dl (3.4-5.0); MAGNESIUM 2.2 mg/dL (1.8-2.4)
[2023-08-03 10:02] LABS: BILIRUBIN,TOTAL 0.4 mg/dL (0.2-1); CREATININE 0.9 mg/dL (0.55-1.3); TOT PROT 6.7 g/dl (6.4-8.2)
[2023-08-03] MEDS ORDERED: INSULIN (NOVOLOG) ASPART 100 UNITS/ML 10ML VIAL ONE (16:36)
[2023-08-04] MEDS ORDERED: LIDOCAINE HCL 1%, 10 MG/ML (20ML VIAL) ONE (08:40)
[2023-08-04] MEDS ORDERED: BUPIVACAINE HCL/PF 0.5% (5MG/ML) 10 ML VIAL ONE (08:40)
[2023-08-04 08:43] LABS: BASO % 0.2 % (0-2.0); EOS % 4.3 % (0-4.5); HEMATOCRIT 38.5 % (35.4-49); HEMOGLOBIN 12.7 GM/dL (11.7-16.9); LYMPH % 18.2 % (8-40); MCH 28.6 pg (25.7-33.7); MEAN CELL VOLUME 86.6 fl (80-96); MEAN PLT VOLUME 7.9 fl (7.5-11.1); MONO % 7.3 % (3.8-10.2); PLATELET COUNT 468 10^3/uL (134-434); RBC 4.44 M/mm3 (4.00-5.60); RDW 13.5 % (11.9-15.9); WHITE BLOOD COUNT 7.6 K/mm3 (4.0-10.0)
[2023-08-04 08:56] LABS: INR 1.12 (0.83-1.09)
[2023-08-04] MEDS ORDERED: PROMETHAZINE HCL 25 MG/1 ML VIAL IVPB PRN ×2 (09:10→11:59)
[2023-08-04] MEDS ORDERED: ONDANSETRON 4 MG/2 ML VIAL IVPUSH PRN ×2 (09:10→11:59)
[2023-08-04 09:15] LABS: POTASSIUM 4.8 mmol/L (3.5-5.1)
[2023-08-04 09:21] LABS: CALCIUM 9.1 mg/dL (8.5-10.1)
[2023-08-04 09:22] LABS: BLOOD UREA NITROGEN 24.9 mg/dL (7-18)
[2023-08-04 09:24] LABS: CREATININE 0.9 mg/dL (0.55-1.3)
[2023-08-04] MEDS ORDERED: THROMBIN (BOVINE) 5,000 UNIT VIAL TP ONE (09:47)
[2023-08-04] MEDS ORDERED: GENTAMICIN SO4 80 MG/2 ML VIAL ONE ×2 (09:47→10:45)
[2023-08-04] MEDS ORDERED: VANCOMYCIN 500 MG VIAL (RESTRICTED TO ID ONLY) ONE (09:49)
[2023-08-04] MEDS ORDERED: MIDAZOLAM HCL 2 MG/2 ML SINGLE DOSE VIAL ONE (10:09)
[2023-08-04] MEDS ORDERED: FENTANYL CITRATE/PF 50 MCG/ML VIAL ONE (10:10)
[2023-08-04] MEDS ORDERED: PROPOFOL 20 ML ONE (10:18)
[2023-08-04] MEDS: LIDOCAINE HCL 1%, 10 MG/ML (20ML VIAL) INF ONE (10:23)
[2023-08-04] MEDS: BUPIVACAINE HCL/PF 0.5% (5 MG/ML) 30 ML VIAL IJ ONE (10:23)
[2023-08-04] MEDS: THROMBIN (BOVINE) 5,000 UNIT VIAL TP ONE (10:25)
[2023-08-04] MEDS: VANCOMYCIN 500 MG VIAL (RESTRICTED TO ID ONLY) IVPB ONE (10:25)
[2023-08-04] MEDS: GENTAMICIN SO4 80 MG/2 ML VIAL IVPB ONE (10:25)
[2023-08-04] MEDS ORDERED: PROPOFOL 40 ML ONE (10:27)
[2023-08-04] MEDS ORDERED: ALBUTEROL SO4 2.5/IPRATROPIUM 0.5 INH SOL 3 ML VIAL.NEB. NEB PRN (11:59)
[2023-08-04 12:36] LABS: BASO % 0.2 % (0-2.0); EOS % 3.9 % (0-4.5); HEMATOCRIT 33.1 % (35.4-49); HEMOGLOBIN 11.5 GM/dL (11.7-16.9); LYMPH % 20.1 % (8-40); MCH 29.7 pg (25.7-33.7); MCHC 34.7 g/dl (32.0-35.9); MEAN CELL VOLUME 85.5 fl (80-96); MEAN PLT VOLUME 7.5 fl (7.5-11.1); MONO % 7.9 % (3.8-10.2); NEUT % 67.9 % (42.8-82.8); PLATELET COUNT 380 10^3/uL (134-434); RBC 3.87 M/mm3 (4.00-5.60); RDW 13.6 % (11.9-15.9)
[2023-08-04] MEDS: LACTATED RINGERS SOLUTION 1,000 ML IV SCH ×2 (13:14)
[2023-08-04] MEDS: INSULIN ASPART SLIDING SCALE (NOVOLOG) 1 VIAL SQ SCH (17:57)
[2023-08-04] MEDS: RIVAROXABAN 20 MG TABLET PO SCH (17:58)
[2023-08-04] MEDS ORDERED: INSULIN (NOVOLOG) ASPART 100 UNITS/ML 10ML VIAL ONE ×2 (18:08→21:00)
[2023-08-04] MEDS: ACETAMINOPHEN 325 MG TABLET (FP) PO PRN (21:12)
[2023-08-04] MEDS: BUDESONIDE/FORMETEROL FUMARATE 160/4.5 mcg INHALER IH SCH (21:12)
[2023-08-04] MEDS: INSULIN (LEVEMIR) 100 UNITS/ML UNITS SQ SCH (21:13)
[2023-08-04] MEDS: DOCUSATE SODIUM 100 MG CAPSULE (FP) PO SCH (21:15)
[2023-08-05 08:47] LABS: BASO % 0.2 % (0-2.0); EOS % 3.8 % (0-4.5); HEMATOCRIT 35.5 % (35.4-49); HEMOGLOBIN 12.2 GM/dL (11.7-16.9); LYMPH % 16.2 % (8-40); MCH 29.4 pg (25.7-33.7); MCHC 34.3 g/dl (32.0-35.9); MEAN CELL VOLUME 85.5 fl (80-96); MEAN PLT VOLUME 7.6 fl (7.5-11.1); MONO % 7.7 % (3.8-10.2); NEUT % 72.1 % (42.8-82.8); PLATELET COUNT 419 10^3/uL (134-434); RBC 4.15 M/mm3 (4.00-5.60); RDW 13.9 % (11.9-15.9); WHITE BLOOD COUNT 7.5 K/mm3 (4.0-10.0)
[2023-08-05 09:02] LABS: POTASSIUM 4.7 mmol/L (3.5-5.1)
[2023-08-05 09:04] LABS: CALCIUM 8.6 mg/dL (8.5-10.1)
[2023-08-05 09:05] LABS: ALBUMIN 2.4 g/dl (3.4-5.0); BLOOD UREA NITROGEN 25.7 mg/dL (7-18)
[2023-08-05 09:08] LABS: CREATININE 0.9 mg/dL (0.55-1.3)
[2023-08-05 09:10] LABS: BILIRUBIN,TOTAL 0.4 mg/dL (0.2-1); TOT PROT 6.8 g/dl (6.4-8.2)
[2023-08-05] MEDS: VALSARTAN 160 MG TABLET PO SCH (09:19)
[2023-08-05] MEDS: HYDROCHLOROTHIAZIDE 25 MG TABLET (FP) PO SCH (09:19)
[2023-08-05] MEDS: CEFTRIAXONE 2 GM in DEXTROSE 5%-WATER 100 ML IVPB SCH (09:19)
[2023-08-05] MEDS ORDERED: INSULIN (NOVOLOG) ASPART 100 UNITS/ML 10ML VIAL ONE ×2 (13:03→21:28)
[2023-08-06] MEDS: VANCOMYCIN/WATER 1250 MG 1,250 MG/250 ML BAG IVPB SCH (11:44)
[2023-08-06] MEDS ORDERED: INSULIN (NOVOLOG) ASPART 100 UNITS/ML 10ML VIAL ONE ×2 (17:19→21:01)
[2023-08-07 07:58] LABS: BASO % 0.5 % (0-2.0); EOS % 4.2 % (0-4.5); HEMATOCRIT 35.5 % (35.4-49); HEMOGLOBIN 12.1 GM/dL (11.7-16.9); LYMPH % 17.3 % (8-40); MCH 28.9 pg (25.7-33.7); MEAN PLT VOLUME 7.4 fl (7.5-11.1); PLATELET COUNT 387 10^3/uL (134-434); RBC 4.18 M/mm3 (4.00-5.60); RDW 13.2 % (11.9-15.9); WHITE BLOOD COUNT 7.2 K/mm3 (4.0-10.0)
[2023-08-07 08:18] LABS: POTASSIUM 4.3 mmol/L (3.5-5.1)
[2023-08-07 08:27] LABS: CALCIUM 8.8 mg/dL (8.5-10.1)
[2023-08-07 08:28] LABS: ALBUMIN 2.3 g/dl (3.4-5.0); BLOOD UREA NITROGEN 22.3 mg/dL (7-18)
[2023-08-07 08:31] LABS: CREATININE 0.9 mg/dL (0.55-1.3)
[2023-08-07 08:32] LABS: BILIRUBIN,TOTAL 0.4 mg/dL (0.2-1); TOT PROT 6.6 g/dl (6.4-8.2)
[2023-08-07] MEDS: ASPIRIN COATED 81 MG TABLET.EC PO SCH (09:31)
[2023-08-07] MEDS ORDERED: INSULIN (NOVOLOG) ASPART 100 UNITS/ML 10ML VIAL ONE ×2 (11:36→21:00)
[2023-08-08 09:17] VITALS: TEMP 98.4
[2023-08-08 15:10] VITALS: BP 114/65; PULSE 77; RESP 18
== END 2023-08-08 18:28 | disposition home or self-care (01) | DRG 181 ==
LOC: JER 14:27 → JERBED 17:48 → OBSVTOIN 19:35 → J8W 23:43
PROVIDERS: ADMIT Internal Medicine; ATTEND Nurse Practitioner Family
PROC: 0QBQ3ZX Excision of Right Toe Phalanx, Percutaneous Approach, Diagnostic (ICD-10-PCS; principal; 2023-07-30 09:00)
PROC: B40FYZZ Plain Radiography of Right Lower Extremity Arteries using Other Contrast (ICD-10-PCS; 2023-07-31)
PROC: B41DZZZ Fluoroscopy of Aorta and Bilateral Lower Extremity Arteries (ICD-10-PCS; 2023-07-31)
PROC: 047P3ZZ Dilation of Right Anterior Tibial Artery, Percutaneous Approach (ICD-10-PCS; 2023-07-31)
PROC: 047T3ZZ Dilation of Right Peroneal Artery, Percutaneous Approach (ICD-10-PCS; 2023-07-31)
PROC: 04CT3ZZ Extirpation of Matter from Right Peroneal Artery, Percutaneous Approach (ICD-10-PCS; 2023-07-31)
PROC: 0Y6X0Z0 Detachment at Right 5th Toe, Complete, Open Approach (ICD-10-PCS; 2023-08-04)
PROC: 02HV33Z Insertion of Infusion Device into Superior Vena Cava, Percutaneous Approach (ICD-10-PCS; 2023-08-06)
PROC: B548ZZA Ultrasonography of Superior Vena Cava, Guidance (ICD-10-PCS; 2023-08-06)
DX: E11.52 Type 2 diabetes mellitus with diabetic peripheral angiopathy with gangrene (principal); M86.171 Other acute osteomyelitis, right ankle and foot; E11.69 Type 2 diabetes mellitus with other specified complication; L97.519 Non-pressure chronic ulcer of other part of right foot with unspecified severity; L03.115 Cellulitis of right lower limb; K76.0 Fatty (change of) liver, not elsewhere classified; E66.9 Obesity, unspecified; Z68.35 Body mass index [BMI] 35.0-35.9, adult
CPT/HCPCS: 0241U-QW; 36415; 36569; 71045-TC-FY; 73610-TC-RT-FY; 73630-TC-RT-FY; 73718-TC-RT; 75635-TC; 76000-TC-FY; 80048; 80053; 82550; 82962; 83036; 83605; 83735; 83880; 84100; 84484; 85025; 85027; 85610; 85651; 85730; 86850; 86900; 86901; 87040; 87070; 87075; 87081; 87186; 87205; 88305-TC; 88311-TC; 93005; 93010; 94760; 97116-GP; 97161-GP; 99285-25; C1713; C1725; C1760; C1769; G0378; G0480; J1644; J3370; Q9967

== ENCOUNTER 2023-08-11 05:24 | Emergency (ER) | payer OTHER ==
[2023-08-11 05:31] VITALS: BP 136/82; PULSE 85; RESP 17; TEMP 97.7; BMI 34.4
== END 2023-08-11 06:11 | disposition home or self-care (01) ==
LOC: JER 05:24
DX: T82.898A Other specified complication of vascular prosthetic devices, implants and grafts, initial encounter (principal)
CPT/HCPCS: 99282-25

== ENCOUNTER 2023-09-26 11:38 | Inpatient (IN) | payer OTHER ==
[2023-09-26] MEDS ORDERED: ACETAMINOPHEN INJECTION 100 ML IVPB ONE (12:19)
[2023-09-26] MEDS: ACETAMINOPHEN 1000 MG/100 ML BAG IVPB ONE (13:08)
[2023-09-26] MEDS: LACTATED RINGERS SOLUTION 1000 ML INFUS.BAG IV ONE ×2 (13:08→13:22)
[2023-09-26 13:16] LABS: BASO % 0.1 % (0-2.0); HEMATOCRIT 41.3 % (35.4-49); HEMOGLOBIN 14.4 GM/dL (11.7-16.9); LYMPH % 2.2 % (8-40); MCH 29.5 pg (25.7-33.7); MCHC 34.9 g/dl (32.0-35.9); MEAN CELL VOLUME 84.6 fl (80-96); MEAN PLT VOLUME 8.1 fl (7.5-11.1); MONO % 8.5 % (3.8-10.2); NEUT % 89.2 % (42.8-82.8); PLATELET COUNT 215 10^3/uL (134-434); RBC 4.88 M/mm3 (4.00-5.60); RDW 14.3 % (11.9-15.9); WHITE BLOOD COUNT 14.3 K/mm3 (4.0-10.0)
[2023-09-26 13:38] LABS: POTASSIUM 3.9 mmol/L (3.5-5.1)
[2023-09-26 13:41] LABS: CALCIUM 8.1 mg/dL (8.5-10.1)
[2023-09-26 13:42] LABS: ALBUMIN 2.7 g/dl (3.4-5.0); BLOOD UREA NITROGEN 52.6 mg/dL (7-18); MAGNESIUM 2.4 mg/dL (1.8-2.4)
[2023-09-26 13:45] LABS: PHOSPHOROUS 2.5 mg/dL (2.5-4.9)
[2023-09-26 13:46] LABS: BILIRUBIN,TOTAL 1.1 mg/dL (0.2-1); TOT PROT 6.6 g/dl (6.4-8.2)
[2023-09-26 13:50] LABS: LACTIC ACID 2.5 mmol/L (0.4-2.0)
[2023-09-26] MEDS ORDERED: ASPIRIN 81 MG CHEWABLE TABLETS ONE (13:58)
[2023-09-26] MEDS: ASPIRIN 81 MG CHEWABLE TABLETS PO ONE (14:00)
[2023-09-26] MEDS ORDERED: PIPERACILLIN/TAZOB 4.5 GM 4.5 GM/100 ML BAG IVPB ONE (14:11)
[2023-09-26] MEDS ORDERED: VANCOMYCIN 1 GRAM (PRE-DOCKED) 1,000 MG/250 ML BAG IVPB ONE ×2 (14:12→15:19)
[2023-09-26] MEDS: PIPERACILLIN/TAZOB 4.5 GM 4.5 GM in DEXTROSE 5%-WATER 100 ML IVPB ONE (14:17)
[2023-09-26] MEDS: VANCOMYCIN 1,000 MG in DEXTROSE 5%-WATER - 250 ML IVPB ONE (15:28)
[2023-09-26 15:31] LABS: INR 1.47 (0.83-1.09); PROTHROMBIN TIME (PATIENT) 16.7 SEC (9.7-13.0)
[2023-09-26 15:33] LABS: ACTIVATED PTT 30.2 SECONDS (25.2-36.5)
[2023-09-26 16:54] LABS: BILIRUBIN,DIRECT 0.5 mg/dL (0.0-0.2)
[2023-09-26] MEDS: ACETYLCYSTEINE INJECTION 20% 15,000 MG in DEXTROSE 5%-WATER - 250 ML IVPB ONE (17:23)
[2023-09-26] MEDS: ACETYLCYSTEINE 20% 200MG/ML 30ML VIAL *FOR INJECTION USE ONLY IVPB ONE ×2 (17:24→18:14)
[2023-09-26] MEDS: ACETYLCYSTEINE INJECTION 20% 10,000 MG in DEXTROSE 5%-WATER - 1,000 ML IVPB ONE (18:13)
[2023-09-26] MEDS: ACETYLCYSTEINE INJECTION 20% 5,000 MG in DEXTROSE 5%-WATER - 500 ML IVPB ONE (18:41)
[2023-09-26 19:14] LABS: INR 1.39 (0.83-1.09); INR 1.41 (0.83-1.09); PROTHROMBIN TIME (PATIENT) 15.8 SEC (9.7-13.0)
[2023-09-26 19:17] LABS: ACTIVATED PTT 29.5 SECONDS (25.2-36.5)
[2023-09-26 19:21] LABS: CHLORIDE 89 mmol/L (98-107); POTASSIUM 3.9 mmol/L (3.5-5.1); SODIUM 128 mmol/L (136-145)
[2023-09-26 19:26] LABS: ANION GAP 15 mmol/L (4-13); CALCIUM 7.5 mg/dL (8.5-10.1); CO2 24 mmol/L (21-32); GLUCOSE,RANDOM 261 mg/dL (74-106)
[2023-09-26 19:29] LABS: CREATININE 3.4 mg/dL (0.55-1.3); SGPT/ALT 249 U/L (13-61)
[2023-09-26 19:30] LABS: SGOT/AST 994 U/L (15-37)
[2023-09-26 19:31] LABS: TOT PROT 5.4 g/dl (6.4-8.2)
[2023-09-26 19:32] LABS: ALK PHOS 76 U/L (45-117)
[2023-09-26] MEDS ORDERED: LIDOCAINE HCL 2% JELLY 6 ML TP ONE (19:59)
[2023-09-26 20:22] LABS: VENOUS BASE EXCESS -5.5 mmol/L (-2-2); VENOUS O2 SATURATION 15.4 % (70-80); VENOUS PCO2 37.8 mmHg (38-52); VENOUS PH 7.334 (7.310-7.410)
[2023-09-26 20:28] LABS: EPI CELLS 4 /uL (0-25.1); HYALINE CASTS 1 /uL (0-3.1); URINE APPEARANCE CLOUDY; URINE BACTERIA 1 /uL (0-1359); URINE BILIRUBIN 1+ (NEGATIVE); URINE COLOR DK YELLOW; URINE GLUCOSE (UA) TRACE (NEGATIVE); URINE KETONE TRACE (NEGATIVE); URINE LEUK ESTERASE NEGATIVE (NEGATIVE); URINE NITRITE NEGATIVE (NEGATIVE); URINE PROTEIN 3+ (NEGATIVE); URINE WBC 52 /uL (0-25.8)
[2023-09-26 20:47] LABS: URINE RBC 300.9 /uL (0-23.9)
[2023-09-27] MEDS: ACETYLCYSTEINE INJECTION 20% 10,000 MG in DEXTROSE 5%-WATER - 1,000 ML IVPB ONE ×2 (00:27→21:01)
[2023-09-27] MEDS: LACTATED RINGERS SOLUTION 1,000 ML/1,000 ML INFUS.BAG IV SCH (00:36)
[2023-09-27 01:23] VITALS: BMI 36.1
[2023-09-27 02:04] LABS: COCAINE, UR NEGATIVE (NEGATIVE); OPIATES, URI NEGATIVE (NEGATIVE); URINE BARBITURATES NEGATIVE (NEGATIVE)
[2023-09-27 02:05] LABS: METHADONE, UR NEGATIVE (NEGATIVE); PHENCYCLIDINE,URINE NEGATIVE (NEGATIVE); URINE BENZODIAZEPINES NEGATIVE (NEGATIVE)
[2023-09-27 02:10] LABS: URINE AMPHETAMINES NEGATIVE (NEGATIVE)
[2023-09-27] MEDS ORDERED: INSULIN ASPART SLIDING SCALE (NOVOLOG) 1 VIAL SQ ONE (06:15)
[2023-09-27] MEDS: INSULIN ASPART SLIDING SCALE (NOVOLOG) 1 VIAL SQ SCH (06:17)
[2023-09-27] MEDS ORDERED: INSULIN (NOVOLOG) ASPART 100 UNITS/ML 10ML VIAL SQ SCH (08:00)
[2023-09-27 08:13] LABS: ALBUMIN 1.9 g/dl (3.4-5.0); BLOOD UREA NITROGEN 67.3 mg/dL (7-18); CALCIUM 7.2 mg/dL (8.5-10.1)
[2023-09-27 08:14] LABS: INR 1.33 (0.83-1.09); PROTHROMBIN TIME (PATIENT) 14.9 SEC (9.7-13.0)
[2023-09-27 08:16] LABS: BASO % 0.1 % (0-2.0); CREATININE 4.3 mg/dL (0.55-1.3); EOS % 0.1 % (0-4.5); HEMATOCRIT 36.2 % (35.4-49); HEMOGLOBIN 12.7 GM/dL (11.7-16.9); MCH 29.5 pg (25.7-33.7); MEAN CELL VOLUME 84.2 fl (80-96); MEAN PLT VOLUME 8.6 fl (7.5-11.1); MONO % 9.6 % (3.8-10.2); NEUT % 88.2 % (42.8-82.8); PHOSPHOROUS 3.7 mg/dL (2.5-4.9); PLATELET COUNT 158 10^3/uL (134-434); RDW 14.7 % (11.9-15.9); WHITE BLOOD COUNT 10.8 K/mm3 (4.0-10.0)
[2023-09-27 08:17] LABS: MAGNESIUM 2.2 mg/dL (1.8-2.4)
[2023-09-27 08:18] LABS: BILIRUBIN,TOTAL 0.7 mg/dL (0.2-1); TOT PROT 5.2 g/dl (6.4-8.2)
[2023-09-27] MEDS ORDERED: ASPIRIN 81 MG CHEWABLE TABLETS PO SCH (10:00)
[2023-09-27] MEDS: BUDESONIDE/FORMETEROL FUMARATE 160/4.5 mcg INHALER IH SCH (11:36)
[2023-09-27] MEDS: SODIUM CHLORIDE 1,000 ML IV SCH (13:19)
[2023-09-27] MEDS: FUROSEMIDE 40 MG/4 ML INJECTABLE VIAL IVPUSH ONE (13:20)
[2023-09-27 13:24] LABS: POTASSIUM 4.1 mmol/L (3.5-5.1)
[2023-09-27 13:27] LABS: CALCIUM 7.5 mg/dL (8.5-10.1)
[2023-09-27 13:28] LABS: BLOOD UREA NITROGEN 72.5 mg/dL (7-18)
[2023-09-27 13:33] LABS: BILIRUBIN,TOTAL 0.9 mg/dL (0.2-1); TOT PROT 5.5 g/dl (6.4-8.2)
[2023-09-27] MEDS ORDERED: VANCOMYCIN/WATER 2 GRAMS 2,000 MG/400 ML PIGGYBACK IVPB ONE (15:00)
[2023-09-27] MEDS: CEFTAROLINE FOSAMIL ACETATE 400 MG in DEXTROSE 5%-WATER - 100 ML IVPB SCH (15:16)
[2023-09-27] MEDS: HEPARIN - 25,000 UNIT in SODIUM CHLORIDE 495 ML IV SCH (21:33)
[2023-09-27] MEDS: INSULIN (LEVEMIR) 100 UNITS/ML UNITS SQ SCH (21:43)
[2023-09-27] MEDS: MONTELUKAST NA 10 MG TABLET PO SCH (21:48)
[2023-09-27] MEDS ORDERED: ATORVASTATIN CA 20 MG TABLET (FP) PO SCH (22:00)
[2023-09-28] MEDS: HEPARIN NA (PORCINE) 5,000 UNITS/ML 1ML VIAL IVPUSH PRN (05:10)
[2023-09-28 07:52] LABS: INR 1.56 (0.83-1.09); PROTHROMBIN TIME (PATIENT) 17.4 SEC (9.7-13.0)
[2023-09-28 08:22] LABS: BASO % 0.1 % (0-2.0); EOS % 1.7 % (0-4.5); HEMATOCRIT 31.7 % (35.4-49); HEMOGLOBIN 11.4 GM/dL (11.7-16.9); LYMPH % 4.1 % (8-40); MCH 30.1 pg (25.7-33.7); MCHC 35.8 g/dl (32.0-35.9); MEAN CELL VOLUME 83.9 fl (80-96); MEAN PLT VOLUME 8.5 fl (7.5-11.1); MONO % 8.7 % (3.8-10.2); NEUT % 85.4 % (42.8-82.8); PLATELET COUNT 145 10^3/uL (134-434); RBC 3.78 M/mm3 (4.00-5.60); WHITE BLOOD COUNT 9.6 K/mm3 (4.0-10.0)
[2023-09-28 09:02] LABS: ALBUMIN 1.6 g/dl (3.4-5.0); ALK PHOS 97 U/L (45-117); ANION GAP 21 mmol/L (4-13); BILIRUBIN,TOTAL 0.6 mg/dL (0.2-1); BLOOD UREA NITROGEN 83.6 mg/dL (7-18); CALCIUM 6.7 mg/dL (8.5-10.1); CHLORIDE 90 mmol/L (98-107); CO2 16 mmol/L (21-32); GLUCOSE,RANDOM 182 mg/dL (74-106); POTASSIUM 3.8 mmol/L (3.5-5.1); SGOT/AST 623 U/L (15-37); SGPT/ALT 256 U/L (13-61); SODIUM 127 mmol/L (136-145); TOT PROT 4.8 g/dl (6.4-8.2)
[2023-09-28 13:20] LABS: ARTERIAL BLD GAS O2 SATURATION 97.7 % (95-98); ARTERIAL BLOOD GAS BASE EXCESS -8.7 mmol/L (-2-2); ARTERIAL BLOOD GAS PO2 101.9 mmHg (80-100); ARTERIAL BLOOD GAS pH 7.388 (7.350-7.450)
[2023-09-28] MEDS: POTASSIUM CHLORIDE ORAL LIQUID 20 MEQ/15 ML PO ONE (13:20)
[2023-09-28 13:23] LABS: ALLENS TEST POSITIVE
[2023-09-28] MEDS: FUROSEMIDE 40 MG/4 ML INJECTABLE VIAL IVPUSH SCH (13:53)
[2023-09-28] MEDS: SODIUM CHLORIDE 1,000 ML IV SCH ×3 (13:53→23:37)
[2023-09-28 16:20] LABS: POTASSIUM 4.4 mmol/L (3.5-5.1)
[2023-09-28 16:22] LABS: ALBUMIN 1.6 g/dl (3.4-5.0); BLOOD UREA NITROGEN 86.4 mg/dL (7-18); CALCIUM 7.1 mg/dL (8.5-10.1)
[2023-09-28 16:27] LABS: BILIRUBIN,TOTAL 0.8 mg/dL (0.2-1); TOT PROT 4.9 g/dl (6.4-8.2)
[2023-09-28 16:41] LABS: CREATININE 6.5 mg/dL (0.55-1.3)
[2023-09-28] MEDS ORDERED: INSULIN ASPART SLIDING SCALE (NOVOLOG) 1 VIAL SQ SCH (17:30)
[2023-09-28] MEDS: INSULIN ASPART SLIDING SCALE (NOVOLOG) 1 VIAL SQ SCH (17:42)
[2023-09-28] MEDS ORDERED: SODIUM CHLORIDE 0.45% 1,000 ML with SODIUM BICARBONATE 8.4% - 100 MEQ IV SCH (18:00)
[2023-09-28] MEDS: SODIUM BICARBONATE IV SCH (18:31)
[2023-09-28] MEDS: SODIUM CHLORIDE 0.45% IV SCH (18:31)
[2023-09-28] MEDS ORDERED: ACETYLCYSTEINE 20% 200MG/ML 30ML VIAL *FOR INJECTION USE ONLY IVPB ONE (19:09)
[2023-09-28] MEDS ORDERED: SODIUM CHLORIDE 1,000 ML IV SCH (22:15)
[2023-09-29] MEDS: SODIUM CHLORIDE 1,000 ML IV SCH (06:54)
[2023-09-29 07:31] LABS: INR 1.17 (0.83-1.09); PROTHROMBIN TIME (PATIENT) 13.4 SEC (9.7-13.0)
[2023-09-29 07:37] LABS: CHLORIDE 92 mmol/L (98-107); SODIUM 126 mmol/L (136-145)
[2023-09-29 07:40] LABS: ALBUMIN 1.5 g/dl (3.4-5.0); ANION GAP 17 mmol/L (4-13); BLOOD UREA NITROGEN 96.4 mg/dL (7-18); CO2 17 mmol/L (21-32); GLUCOSE,RANDOM 128 mg/dL (74-106)
[2023-09-29 07:43] LABS: CREATININE 6.7 mg/dL (0.55-1.3); SGPT/ALT 272 U/L (13-61)
[2023-09-29 07:44] LABS: SGOT/AST 440 U/L (15-37)
[2023-09-29 07:45] LABS: BILIRUBIN,TOTAL 0.9 mg/dL (0.2-1); TOT PROT 4.7 g/dl (6.4-8.2)
[2023-09-29 07:46] LABS: ALK PHOS 164 U/L (45-117); CALCIUM 6.8 mg/dL (8.5-10.1)
[2023-09-29 08:35] LABS: BASO % 0.3 % (0-2.0); EOS % 4.3 % (0-4.5); HEMATOCRIT 31.3 % (35.4-49); LYMPH % 4.2 % (8-40); MCH 29.7 pg (25.7-33.7); MCHC 35.1 g/dl (32.0-35.9); MEAN CELL VOLUME 84.6 fl (80-96); MEAN PLT VOLUME 8.5 fl (7.5-11.1); MONO % 8.4 % (3.8-10.2); NEUT % 82.8 % (42.8-82.8); PLATELET COUNT 164 10^3/uL (134-434); RDW 14.9 % (11.9-15.9); WHITE BLOOD COUNT 9.2 K/mm3 (4.0-10.0)
[2023-09-29] MEDS: SODIUM CHLORIDE 0.45% IV SCH (14:17)
[2023-09-29] MEDS: SODIUM BICARBONATE IV SCH (14:17)
[2023-09-29] MEDS: TAMSULOSIN HCL 0.4 MG CAP PO ONE (15:57)
[2023-09-29] MEDS ORDERED: SODIUM CHLORIDE 0.45% 1,000 ML with SODIUM BICARBONATE 8.4% - 50 MEQ IV SCH (16:30)
[2023-09-29] MEDS: SODIUM BICARBONATE 8.4% - 50 MEQ in SODIUM CHLORIDE 0.45% 1,000 ML IV SCH (17:17)
[2023-09-30 07:21] LABS: HEMATOCRIT 30.5 % (35.4-49); HEMOGLOBIN 10.7 GM/dL (11.7-16.9); MCH 29.9 pg (25.7-33.7); MCHC 35.2 g/dl (32.0-35.9); MEAN CELL VOLUME 84.9 fl (80-96); MEAN PLT VOLUME 8.3 fl (7.5-11.1); PLATELET COUNT 205 10^3/uL (134-434); RBC 3.59 M/mm3 (4.00-5.60); RDW 14.9 % (11.9-15.9); WHITE BLOOD COUNT 9.2 K/mm3 (4.0-10.0)
[2023-09-30 07:40] LABS: CHLORIDE 92 mmol/L (98-107); SODIUM 126 mmol/L (136-145)
[2023-09-30 07:43] LABS: CALCIUM 7.2 mg/dL (8.5-10.1)
[2023-09-30 07:44] LABS: ALBUMIN 1.5 g/dl (3.4-5.0); ANION GAP 16 mmol/L (4-13); CO2 19 mmol/L (21-32); GLUCOSE,RANDOM 94 mg/dL (74-106)
[2023-09-30 07:46] LABS: CREATININE 7.3 mg/dL (0.55-1.3); SGOT/AST 229 U/L (15-37); SGPT/ALT 197 U/L (13-61)
[2023-09-30 07:48] LABS: BILIRUBIN,TOTAL 0.8 mg/dL (0.2-1)
[2023-09-30 07:49] LABS: ALK PHOS 186 U/L (45-117); TOT PROT 4.6 g/dl (6.4-8.2)
[2023-09-30 08:04] LABS: BLOOD UREA NITROGEN 107.5 mg/dL (7-18)
[2023-09-30] MEDS: metoPROLOL SUCCINATE 25 MG TAB.SR.24H (FP) PO SCH (13:33)
[2023-09-30] MEDS: SODIUM BICARBONATE 8.4% - 50 MEQ in SODIUM CHLORIDE 0.45% 1,000 ML IV SCH (13:34)
[2023-09-30] MEDS: LACTATED RINGERS SOLUTION 1,000 ML/1,000 ML INFUS.BAG IV SCH (18:15)
[2023-10-01] MEDS: INSULIN ASPART SLIDING SCALE (NOVOLOG) 1 VIAL SQ SCH (06:15)
[2023-10-01 08:00] LABS: HEMATOCRIT 30.6 % (35.4-49); HEMOGLOBIN 10.6 GM/dL (11.7-16.9); MCH 29.5 pg (25.7-33.7); MCHC 34.5 g/dl (32.0-35.9); MEAN CELL VOLUME 85.4 fl (80-96); MEAN PLT VOLUME 8.2 fl (7.5-11.1); PLATELET COUNT 285 10^3/uL (134-434); RBC 3.58 M/mm3 (4.00-5.60); RDW 15.1 % (11.9-15.9); WHITE BLOOD COUNT 10.7 K/mm3 (4.0-10.0)
[2023-10-01 08:18] LABS: CHLORIDE 94 mmol/L (98-107); POTASSIUM 4.3 mmol/L (3.5-5.1); SODIUM 128 mmol/L (136-145)
[2023-10-01 08:27] LABS: CALCIUM 7.6 mg/dL (8.5-10.1)
[2023-10-01 08:29] LABS: ALBUMIN 1.6 g/dl (3.4-5.0); ANION GAP 16 mmol/L (4-13); CO2 18 mmol/L (21-32); GLUCOSE,RANDOM 162 mg/dL (74-106); MAGNESIUM 2.3 mg/dL (1.8-2.4)
[2023-10-01 08:32] LABS: CREATININE 7.1 mg/dL (0.55-1.3); SGOT/AST 155 U/L (15-37); SGPT/ALT 155 U/L (13-61)
[2023-10-01 08:34] LABS: TOT PROT 4.7 g/dl (6.4-8.2)
[2023-10-01 08:48] LABS: ALK PHOS 245 U/L (45-117); BLOOD UREA NITROGEN 112.2 mg/dL (7-18)
[2023-10-01] MEDS: SODIUM CHLORIDE 0.45% 1,000 ML IV SCH (09:29)
[2023-10-01] MEDS: HEPARIN NA (PORCINE) 5,000 UNITS/ML 1ML VIAL IVPUSH PRN (09:29)
[2023-10-01] MEDS: INSULIN (LEVEMIR) 100 UNITS/ML UNITS SQ SCH (21:22)
[2023-10-01 23:07] LABS: ANTIGLOMERULAR BASEMENT MEN.AB <0.2 units (0.0-0.9)
[2023-10-02] MEDS: INSULIN (LEVEMIR) 100 UNITS/ML UNITS SQ SCH (06:35)
[2023-10-02 07:32] LABS: HEMATOCRIT 31.2 % (35.4-49); HEMOGLOBIN 10.5 GM/dL (11.7-16.9); MCH 28.9 pg (25.7-33.7); MCHC 33.7 g/dl (32.0-35.9); MEAN CELL VOLUME 85.5 fl (80-96); MEAN PLT VOLUME 7.6 fl (7.5-11.1); PLATELET COUNT 401 10^3/uL (134-434); RBC 3.65 M/mm3 (4.00-5.60); RDW 15.1 % (11.9-15.9); WHITE BLOOD COUNT 13.5 K/mm3 (4.0-10.0)
[2023-10-02 07:49] LABS: CALCIUM 7.9 mg/dL (8.5-10.1); CHLORIDE 100 mmol/L (98-107); POTASSIUM 4.2 mmol/L (3.5-5.1); SODIUM 132 mmol/L (136-145)
[2023-10-02 07:50] LABS: ANION GAP 14 mmol/L (4-13); CO2 18 mmol/L (21-32); GLUCOSE,RANDOM 156 mg/dL (74-106); MAGNESIUM 2.2 mg/dL (1.8-2.4)
[2023-10-02 07:54] LABS: CREATININE 6.6 mg/dL (0.55-1.3); PHOSPHOROUS 6.6 mg/dL (2.5-4.9)
[2023-10-02 07:58] LABS: BLOOD UREA NITROGEN 113.9 mg/dL (7-18)
[2023-10-02 09:20] LABS: ANISOCYTOSIS 2+; MACROCYTOSIS 0
[2023-10-02 16:11] LABS: C-ANCA <1:20 titer (Neg:<1:20)
[2023-10-03 06:34] LABS: HEMATOCRIT 30.8 % (35.4-49); HEMOGLOBIN 10.3 GM/dL (11.7-16.9); MCH 28.7 pg (25.7-33.7); MCHC 33.5 g/dl (32.0-35.9); MEAN CELL VOLUME 85.9 fl (80-96); MEAN PLT VOLUME 7.2 fl (7.5-11.1); PLATELET COUNT 451 10^3/uL (134-434); RBC 3.58 M/mm3 (4.00-5.60); RDW 15.1 % (11.9-15.9)
[2023-10-03 12:53] LABS: POTASSIUM 4.4 mmol/L (3.5-5.1)
[2023-10-03 12:56] LABS: ALBUMIN 1.7 g/dl (3.4-5.0); BLOOD UREA NITROGEN 97.5 mg/dL (7-18)
[2023-10-03 12:59] LABS: CREATININE 5.5 mg/dL (0.55-1.3); PHOSPHOROUS 5.7 mg/dL (2.5-4.9)
[2023-10-03 13:01] LABS: BILIRUBIN,TOTAL 0.6 mg/dL (0.2-1); TOT PROT 5.6 g/dl (6.4-8.2)
[2023-10-04] MEDS ORDERED: SODIUM CHLORIDE 0.45% 1,000 ML IV SCH (11:00)
[2023-10-04 11:24] LABS: HEMATOCRIT 28.3 % (35.4-49); HEMOGLOBIN 9.7 GM/dL (11.7-16.9); MCH 29.4 pg (25.7-33.7); MCHC 34.3 g/dl (32.0-35.9); MEAN CELL VOLUME 85.7 fl (80-96); MEAN PLT VOLUME 6.6 fl (7.5-11.1); PLATELET COUNT 465 10^3/uL (134-434); RBC 3.31 M/mm3 (4.00-5.60); WHITE BLOOD COUNT 13.1 K/mm3 (4.0-10.0)
[2023-10-04 11:44] LABS: POTASSIUM 3.9 mmol/L (3.5-5.1)
[2023-10-04 11:47] LABS: ALBUMIN 1.7 g/dl (3.4-5.0); BLOOD UREA NITROGEN 80.5 mg/dL (7-18); CALCIUM 8.3 mg/dL (8.5-10.1)
[2023-10-04 11:50] LABS: CREATININE 4.3 mg/dL (0.55-1.3)
[2023-10-04 11:52] LABS: BILIRUBIN,TOTAL 0.9 mg/dL (0.2-1); TOT PROT 5.7 g/dl (6.4-8.2)
[2023-10-04] MEDS: SODIUM CHLORIDE 0.45% 1,000 ML IV SCH (15:51)
[2023-10-04] MEDS: PIPERACILLIN/TAZOB 2.25 GM 2.25 GM in DEXTROSE 5%-WATER - 50 ML IVPB SCH (17:10)
[2023-10-04] MEDS: RIVAROXABAN 20 MG TABLET PO SCH (17:10)
[2023-10-05 08:45] LABS: HEMATOCRIT 30.4 % (35.4-49); MCH 28.4 pg (25.7-33.7); MCHC 32.8 g/dl (32.0-35.9); MEAN CELL VOLUME 86.5 fl (80-96); MEAN PLT VOLUME 6.8 fl (7.5-11.1); PLATELET COUNT 468 10^3/uL (134-434); POTASSIUM 4.1 mmol/L (3.5-5.1); RBC 3.51 M/mm3 (4.00-5.60); RDW 15.2 % (11.9-15.9); WHITE BLOOD COUNT 11.1 K/mm3 (4.0-10.0)
[2023-10-05 09:12] LABS: CALCIUM 8.3 mg/dL (8.5-10.1)
[2023-10-05 09:13] LABS: ALBUMIN 1.7 g/dl (3.4-5.0); MAGNESIUM 1.8 mg/dL (1.8-2.4)
[2023-10-05 09:15] LABS: PHOSPHOROUS 5.1 mg/dL (2.5-4.9)
[2023-10-05 09:16] LABS: CREATININE 3.6 mg/dL (0.55-1.3)
[2023-10-05 09:17] LABS: BILIRUBIN,TOTAL 0.5 mg/dL (0.2-1); TOT PROT 5.8 g/dl (6.4-8.2)
[2023-10-05] MEDS ORDERED: RIVAROXABAN 20 MG TABLET PO SCH (10:00)
[2023-10-05] MEDS: amLODIPine BESYLATE 5 MG TABLET (FP) PO SCH (14:01)
[2023-10-05] MEDS: INSULIN (LEVEMIR) 100 UNITS/ML UNITS SQ SCH (22:03)
[2023-10-06] MEDS: INSULIN (LEVEMIR) 100 UNITS/ML UNITS SQ SCH (06:30)
[2023-10-06 06:58] LABS: HEMATOCRIT 29.1 % (35.4-49); MCH 29.6 pg (25.7-33.7); MCHC 34.2 g/dl (32.0-35.9); MEAN CELL VOLUME 86.5 fl (80-96); MEAN PLT VOLUME 6.5 fl (7.5-11.1); PLATELET COUNT 418 10^3/uL (134-434); RBC 3.37 M/mm3 (4.00-5.60); RDW 15.2 % (11.9-15.9); WHITE BLOOD COUNT 10.5 K/mm3 (4.0-10.0)
[2023-10-06 07:23] LABS: MAGNESIUM 1.7 mg/dL (1.8-2.4)
[2023-10-06 07:26] LABS: PHOSPHOROUS 4.4 mg/dL (2.5-4.9)
[2023-10-06 07:27] LABS: ALBUMIN 1.7 g/dl (3.4-5.0); CALCIUM 8.1 mg/dL (8.5-10.1)
[2023-10-06 07:28] LABS: BLOOD UREA NITROGEN 48.3 mg/dL (7-18)
[2023-10-06 07:31] LABS: CREATININE 2.9 mg/dL (0.55-1.3)
[2023-10-06 07:32] LABS: BILIRUBIN,TOTAL 0.4 mg/dL (0.2-1)
[2023-10-06] MEDS: MAGNESIUM SULF 50% (8.12 MEQ/2 ML-1 GM VIAL) IVPB ONE (08:53)
[2023-10-06] MEDS: MAGNESIUM OXIDE 400 MG TABLET (FP) PO ONE (09:43)
[2023-10-06] MEDS: SODIUM CHLORIDE 0.45% 1,000 ML IV SCH (14:03)
[2023-10-07 07:37] LABS: HEMATOCRIT 29.6 % (35.4-49); MCH 29.3 pg (25.7-33.7); MCHC 33.7 g/dl (32.0-35.9); MEAN CELL VOLUME 86.8 fl (80-96); MEAN PLT VOLUME 6.7 fl (7.5-11.1); PLATELET COUNT 415 10^3/uL (134-434); RBC 3.41 M/mm3 (4.00-5.60); RDW 14.3 % (11.9-15.9); WHITE BLOOD COUNT 9.6 K/mm3 (4.0-10.0)
[2023-10-07 07:49] LABS: POTASSIUM 3.8 mmol/L (3.5-5.1)
[2023-10-07 07:51] LABS: CALCIUM 8.1 mg/dL (8.5-10.1)
[2023-10-07 07:52] LABS: BLOOD UREA NITROGEN 39.5 mg/dL (7-18)
[2023-10-07 07:54] LABS: ALBUMIN 1.8 g/dl (3.4-5.0); MAGNESIUM 1.6 mg/dL (1.8-2.4); PHOSPHOROUS 4.2 mg/dL (2.5-4.9)
[2023-10-07 07:55] LABS: CREATININE 2.5 mg/dL (0.55-1.3)
[2023-10-07 07:56] LABS: BILIRUBIN,TOTAL 0.4 mg/dL (0.2-1); TOT PROT 6.3 g/dl (6.4-8.2)
[2023-10-07] MEDS: MAGNESIUM 2GM/50ML STERILE WATER IVPB IVPB ONE (17:52)
[2023-10-08 07:37] LABS: HEMATOCRIT 29.8 % (35.4-49); HEMOGLOBIN 10.1 GM/dL (11.7-16.9); MCH 29.4 pg (25.7-33.7); MCHC 34.1 g/dl (32.0-35.9); MEAN CELL VOLUME 86.2 fl (80-96); MEAN PLT VOLUME 6.8 fl (7.5-11.1); PLATELET COUNT 410 10^3/uL (134-434); RBC 3.45 M/mm3 (4.00-5.60); RDW 14.8 % (11.9-15.9); WHITE BLOOD COUNT 8.8 K/mm3 (4.0-10.0)
[2023-10-08 08:06] LABS: ALBUMIN 1.9 g/dl (3.4-5.0); BLOOD UREA NITROGEN 34.7 mg/dL (7-18); CALCIUM 8.4 mg/dL (8.5-10.1); MAGNESIUM 1.8 mg/dL (1.8-2.4)
[2023-10-08 08:09] LABS: CREATININE 2.3 mg/dL (0.55-1.3); PHOSPHOROUS 4.2 mg/dL (2.5-4.9)
[2023-10-08 08:11] LABS: TOT PROT 6.4 g/dl (6.4-8.2)
[2023-10-08 08:12] LABS: BILIRUBIN,TOTAL 0.4 mg/dL (0.2-1)
[2023-10-08] MEDS: amLODIPine BESYLATE 10 MG TABLET (FP) PO SCH (10:29)
[2023-10-08] MEDS: SODIUM CHLORIDE 0.45% 1,000 ML IV SCH (13:46)
[2023-10-08] MEDS: CARVEDILOL 12.5 MG TABLET (FP) PO SCH (21:39)
[2023-10-09 07:35] LABS: HEMATOCRIT 28.3 % (35.4-49); HEMOGLOBIN 9.8 GM/dL (11.7-16.9); MCH 29.7 pg (25.7-33.7); MCHC 34.7 g/dl (32.0-35.9); MEAN CELL VOLUME 85.4 fl (80-96); PLATELET COUNT 345 10^3/uL (134-434); RBC 3.31 M/mm3 (4.00-5.60); RDW 14.5 % (11.9-15.9); WHITE BLOOD COUNT 8.1 K/mm3 (4.0-10.0)
[2023-10-09 07:48] LABS: POTASSIUM 4.1 mmol/L (3.5-5.1)
[2023-10-09 07:53] LABS: ALBUMIN 1.8 g/dl (3.4-5.0); BLOOD UREA NITROGEN 33.3 mg/dL (7-18); CALCIUM 8.2 mg/dL (8.5-10.1); MAGNESIUM 1.5 mg/dL (1.8-2.4)
[2023-10-09 07:56] LABS: CREATININE 2.2 mg/dL (0.55-1.3); PHOSPHOROUS 4.2 mg/dL (2.5-4.9)
[2023-10-09 07:58] LABS: BILIRUBIN,TOTAL 0.4 mg/dL (0.2-1); TOT PROT 6.3 g/dl (6.4-8.2)
[2023-10-09] MEDS: MAGNESIUM SULF 50% (8.12 MEQ/2 ML-1 GM VIAL) IVPB SCH (08:53)
[2023-10-09] MEDS: ZINC OXIDE 20% TOPICAL OINTMENT 30 GM TUBE TP SCH (10:11)
[2023-10-09] MEDS: MAGNESIUM 2GM/50ML STERILE WATER IVPB IVPB ONE (13:25)
[2023-10-09] MEDS: SODIUM CHLORIDE 0.45% 1,000 ML IV SCH (13:27)
[2023-10-09 20:20] VITALS: RESP 18
[2023-10-10 09:23] LABS: HEMATOCRIT 28.6 % (35.4-49); HEMOGLOBIN 9.8 GM/dL (11.7-16.9); MCH 29.6 pg (25.7-33.7); MCHC 34.2 g/dl (32.0-35.9); MEAN CELL VOLUME 86.5 fl (80-96); MEAN PLT VOLUME 7.1 fl (7.5-11.1); PLATELET COUNT 297 10^3/uL (134-434); RBC 3.31 M/mm3 (4.00-5.60); RDW 14.2 % (11.9-15.9); WHITE BLOOD COUNT 6.6 K/mm3 (4.0-10.0)
[2023-10-10 09:44] LABS: POTASSIUM 4.1 mmol/L (3.5-5.1)
[2023-10-10 09:47] LABS: BLOOD UREA NITROGEN 29.8 mg/dL (7-18)
[2023-10-10 09:48] LABS: ALBUMIN 1.8 g/dl (3.4-5.0)
[2023-10-10 09:50] LABS: CALCIUM 7.9 mg/dL (8.5-10.1); MAGNESIUM 1.7 mg/dL (1.8-2.4)
[2023-10-10 09:54] LABS: BILIRUBIN,TOTAL 0.4 mg/dL (0.2-1); TOT PROT 6.2 g/dl (6.4-8.2)
[2023-10-10] MEDS: MAGNESIUM OXIDE 400 MG TABLET (FP) PO ONE (12:57)
[2023-10-10 16:00] VITALS: BP 172/70; PULSE 77; TEMP 98.2
[2023-10-10] MEDS ORDERED: INSULIN ASPART SLIDING SCALE (NOVOLOG) 1 VIAL SQ ONE (17:37)
== END 2023-10-10 18:50 | disposition home or self-care (01) | DRG 720 ==
LOC: JER 11:38 → JERBED 16:51 → J4W 09-27 00:21
PROVIDERS: ADMIT Internal Medicine; ATTEND Internal Medicine
DX: A41.2 Sepsis due to unspecified staphylococcus (principal); T39.1X1A Poisoning by 4-Aminophenol derivatives, accidental (unintentional), initial encounter; N17.9 Acute kidney failure, unspecified; E11.51 Type 2 diabetes mellitus with diabetic peripheral angiopathy without gangrene; E11.621 Type 2 diabetes mellitus with foot ulcer; E11.65 Type 2 diabetes mellitus with hyperglycemia; E87.1 Hypo-osmolality and hyponatremia; E87.20 Acidosis, unspecified; M62.82 Rhabdomyolysis; B95.61 Methicillin susceptible Staphylococcus aureus infection as the cause of diseases classified elsewhere; R79.89 Other specified abnormal findings of blood chemistry; Y92.89 Other specified places as the place of occurrence of the external cause; E66.9 Obesity, unspecified; Z68.36 Body mass index [BMI] 36.0-36.9, adult; R74.01 Elevation of levels of liver transaminase levels; E78.5 Hyperlipidemia, unspecified; I10 Essential (primary) hypertension; J44.9 Chronic obstructive pulmonary disease, unspecified; K72.90 Hepatic failure, unspecified without coma
CPT/HCPCS: 0241U-QW; 36415; 36600; 71045-TC-FY; 76705-TC; 76775-TC; 80048; 80053; 80307; 81003; 82248; 82272; 82550; 82553; 82570; 82803; 82962; 83516; 83520; 83605; 83690; 83735; 84100; 84155; 84165; 84300; 84484; 85025; 85027; 85610; 85730; 86038; 86160; 86225; 86256; 86704; 86708; 86803; 86850; 86900; 86901; 87040; 87086; 87186; 87340; 87517; 93005; 93010; 93306-TC; 93971; 97116-GP; 97162-GP; 99285-25; G0480; J0131; J1644

== ENCOUNTER 2023-10-12 21:42 | Inpatient (IN) | payer OTHER ==
[2023-10-12 22:56] LABS: HEMATOCRIT 30.2 % (35.4-49); HEMOGLOBIN 10.4 GM/dL (11.7-16.9); MCH 29.3 pg (25.7-33.7); MCHC 34.6 g/dl (32.0-35.9); MEAN CELL VOLUME 84.6 fl (80-96); MEAN PLT VOLUME 7.2 fl (7.5-11.1); PLATELET COUNT 279 10^3/uL (134-434); RBC 3.57 M/mm3 (4.00-5.60); WHITE BLOOD COUNT 10.9 K/mm3 (4.0-10.0)
[2023-10-12 23:22] LABS: POTASSIUM 4.8 mmol/L (3.5-5.1)
[2023-10-12 23:24] LABS: ALBUMIN 2.1 g/dl (3.4-5.0); BLOOD UREA NITROGEN 23.6 mg/dL (7-18)
[2023-10-12 23:27] LABS: CREATININE 1.8 mg/dL (0.55-1.3)
[2023-10-12 23:29] LABS: BILIRUBIN,TOTAL 0.7 mg/dL (0.2-1); TOT PROT 7.4 g/dl (6.4-8.2)
[2023-10-12] MEDS ORDERED: ACETAMINOPHEN INJECTION 100 ML IVPB ONE (23:34)
[2023-10-12] MEDS: ACETAMINOPHEN 1000 MG/100 ML BAG IVPB ONE (23:41)
[2023-10-13] MEDS ORDERED: AMOX TR/POT CLAV 875MG/125MG TABLETS (FP) ONE (00:22)
[2023-10-13] MEDS: AMOX TR/POT CLAV 875MG/125MG TABLETS (FP) PO ONE (00:25)
[2023-10-13] MEDS ORDERED: MORPHINE SULFATE 2 MG/ML SYRINGE ONE (03:07)
[2023-10-13 03:30] LABS: PH,URINE 6.5 (5.0-8.0); URINE APPEARANCE CLEAR; URINE BILIRUBIN NEGATIVE (NEGATIVE); URINE COLOR YELLOW; URINE GLUCOSE (UA) NEGATIVE (NEGATIVE); URINE KETONE NEGATIVE (NEGATIVE); URINE LEUK ESTERASE NEGATIVE (NEGATIVE); URINE NITRITE NEGATIVE (NEGATIVE); URINE PROTEIN TRACE (NEGATIVE); URINE UROBILINOGEN 0.2 mg/dL (0.2-1.0)
[2023-10-13] MEDS: morphine SULFATE 4 MG/ML VIAL IVPUSH PRN (03:33)
[2023-10-13] MEDS: SODIUM CHLORIDE 1,000 ML IV SCH (04:05)
[2023-10-13] MEDS ORDERED: PIPERACILLIN/TAZOB 3.375 GM 3.375 GM/50 ML BAG IVPB ONE ×2 (04:46→08:40)
[2023-10-13] MEDS: PIPERACILLIN/TAZOB 3.375 GM 3.375 GM in DEXTROSE 5%-WATER - 50 ML IVPB SCH ×2 (04:58→15:37)
[2023-10-13 06:36] LABS: HEMATOCRIT 27.2 % (35.4-49); HEMOGLOBIN 9.4 GM/dL (11.7-16.9); MCH 29.5 pg (25.7-33.7); MCHC 34.7 g/dl (32.0-35.9); MEAN CELL VOLUME 84.9 fl (80-96); MEAN PLT VOLUME 7.3 fl (7.5-11.1); PLATELET COUNT 251 10^3/uL (134-434); RDW 13.9 % (11.9-15.9); WHITE BLOOD COUNT 8.2 K/mm3 (4.0-10.0)
[2023-10-13 06:51] LABS: POTASSIUM 4.3 mmol/L (3.5-5.1)
[2023-10-13 06:54] LABS: ALBUMIN 1.9 g/dl (3.4-5.0); BLOOD UREA NITROGEN 22.9 mg/dL (7-18); CALCIUM 7.8 mg/dL (8.5-10.1)
[2023-10-13 06:59] LABS: BILIRUBIN,TOTAL 0.9 mg/dL (0.2-1); TOT PROT 6.8 g/dl (6.4-8.2)
[2023-10-13] MEDS: INSULIN ASPART SLIDING SCALE (NOVOLOG) 1 VIAL SQ SCH (07:09)
[2023-10-13 07:22] LABS: EPI CELLS 1.8 /uL (0-25.1); URINE BACTERIA 4.7 /uL (0-1359); URINE RBC 31.2 /uL (0-23.9); URINE WBC 9.3 /uL (0-25.8)
[2023-10-13 08:41] LABS: EPI CELLS 4 /uL (0-25.1); HYALINE CASTS 0 /uL (0-3.1); URINE APPEARANCE CLEAR; URINE BACTERIA 2 /uL (0-1359); URINE BILIRUBIN NEGATIVE (NEGATIVE); URINE COLOR YELLOW; URINE GLUCOSE (UA) NEGATIVE (NEGATIVE); URINE KETONE NEGATIVE (NEGATIVE); URINE LEUK ESTERASE NEGATIVE (NEGATIVE); URINE NITRITE NEGATIVE (NEGATIVE); URINE PROTEIN TRACE (NEGATIVE); URINE RBC 148 /uL (0-23.9); URINE UROBILINOGEN 0.2 mg/dL (0.2-1.0); URINE WBC 28 /uL (0-25.8)
[2023-10-13] MEDS: CARVEDILOL 12.5 MG TABLET (FP) PO SCH (09:13)
[2023-10-13] MEDS: amLODIPine BESYLATE 10 MG TABLET (FP) PO SCH (09:13)
[2023-10-13 12:26] VITALS: BMI 33.7
[2023-10-13] MEDS: CEFTRIAXONE 2 GM in DEXTROSE 5%-WATER 100 ML IVPB SCH (15:33)
[2023-10-13] MEDS: MONTELUKAST NA 10 MG TABLET PO SCH (21:21)
[2023-10-14 07:59] LABS: BASO % 1.3 % (0-2.0); HEMATOCRIT 23.7 % (35.4-49); HEMOGLOBIN 8.3 GM/dL (11.7-16.9); LYMPH % 12.8 % (8-40); MCH 29.8 pg (25.7-33.7); MEAN CELL VOLUME 85.1 fl (80-96); MEAN PLT VOLUME 7.9 fl (7.5-11.1); MONO % 10.2 % (3.8-10.2); NEUT % 70.7 % (42.8-82.8); PLATELET COUNT 179 10^3/uL (134-434); RBC 2.78 M/mm3 (4.00-5.60); RDW 13.8 % (11.9-15.9); WHITE BLOOD COUNT 5.3 K/mm3 (4.0-10.0)
[2023-10-14 08:05] LABS: ALBUMIN 1.6 g/dl (3.4-5.0); CALCIUM 7.6 mg/dL (8.5-10.1)
[2023-10-14 08:06] LABS: BLOOD UREA NITROGEN 21.4 mg/dL (7-18); MAGNESIUM 1.4 mg/dL (1.8-2.4)
[2023-10-14 08:10] LABS: TOT PROT 6.3 g/dl (6.4-8.2)
[2023-10-14 08:11] LABS: BILIRUBIN,TOTAL 0.4 mg/dL (0.2-1)
[2023-10-14] MEDS: MAGNESIUM OXIDE 400 MG TABLET (FP) PO ONE (09:31)
[2023-10-14] MEDS ORDERED: ALBUTEROL SO4 2.5/IPRATROPIUM 0.5 INH SOL 3 ML VIAL.NEB. NEB PRN (16:34)
[2023-10-14] MEDS: BUDESONIDE/FORMETEROL FUMARATE 160/4.5 mcg INHALER IH SCH (22:55)
[2023-10-15 08:49] LABS: BASO % 0.4 % (0-2.0); EOS % 4.7 % (0-4.5); HEMATOCRIT 24.9 % (35.4-49); HEMOGLOBIN 8.7 GM/dL (11.7-16.9); MCH 29.7 pg (25.7-33.7); MCHC 34.9 g/dl (32.0-35.9); MEAN PLT VOLUME 8.4 fl (7.5-11.1); MONO % 8.2 % (3.8-10.2); NEUT % 73.7 % (42.8-82.8); PLATELET COUNT 199 10^3/uL (134-434); RBC 2.93 M/mm3 (4.00-5.60); RDW 13.6 % (11.9-15.9)
[2023-10-15 09:09] LABS: POTASSIUM 4.1 mmol/L (3.5-5.1)
[2023-10-15 09:19] LABS: CALCIUM 7.9 mg/dL (8.5-10.1)
[2023-10-15 09:20] LABS: ALBUMIN 1.6 g/dl (3.4-5.0); BLOOD UREA NITROGEN 23.5 mg/dL (7-18); MAGNESIUM 1.6 mg/dL (1.8-2.4)
[2023-10-15 09:23] LABS: CREATININE 1.6 mg/dL (0.55-1.3)
[2023-10-15 09:25] LABS: BILIRUBIN,TOTAL 0.4 mg/dL (0.2-1); TOT PROT 6.7 g/dl (6.4-8.2)
[2023-10-15] MEDS: MAGNESIUM OXIDE 400 MG TABLET (FP) PO ONE (12:39)
[2023-10-15] MEDS: RIVAROXABAN 20 MG TABLET PO SCH (17:36)
[2023-10-16 09:21] LABS: BASO % 0.4 % (0-2.0); EOS % 4.6 % (0-4.5); HEMOGLOBIN 9.3 GM/dL (11.7-16.9); LYMPH % 17.1 % (8-40); MCH 29.2 pg (25.7-33.7); MCHC 34.6 g/dl (32.0-35.9); MEAN CELL VOLUME 84.4 fl (80-96); MEAN PLT VOLUME 7.7 fl (7.5-11.1); MONO % 11.2 % (3.8-10.2); NEUT % 66.7 % (42.8-82.8); PLATELET COUNT 214 10^3/uL (134-434); RDW 13.4 % (11.9-15.9); WHITE BLOOD COUNT 4.5 K/mm3 (4.0-10.0)
[2023-10-16 09:29] LABS: POTASSIUM 4.1 mmol/L (3.5-5.1)
[2023-10-16 09:32] LABS: CALCIUM 7.6 mg/dL (8.5-10.1)
[2023-10-16 09:33] LABS: ALBUMIN 1.6 g/dl (3.4-5.0); BLOOD UREA NITROGEN 24.8 mg/dL (7-18); MAGNESIUM 1.5 mg/dL (1.8-2.4)
[2023-10-16 09:36] LABS: CREATININE 1.4 mg/dL (0.55-1.3)
[2023-10-16 09:37] LABS: TOT PROT 6.9 g/dl (6.4-8.2)
[2023-10-16 09:38] LABS: BILIRUBIN,TOTAL 0.3 mg/dL (0.2-1)
[2023-10-16] MEDS: MAGNESIUM OXIDE 400 MG TABLET (FP) PO ONE (11:04)
[2023-10-16] MEDS ORDERED: AMOX TR/POT CLAV 500MG/125MG TABLETS (FP) PO ONE (13:59)
[2023-10-16] MEDS: INSULIN (LEVEMIR) 100 UNITS/ML UNITS SQ ONE (17:16)
[2023-10-16] MEDS: AMOX TR/POT CLAV 500MG/125MG TABLETS (FP) PO ONE (17:22)
[2023-10-16] MEDS: INSULIN (LEVEMIR) 100 UNITS/ML UNITS SQ SCH (21:17)
[2023-10-17 06:22] VITALS: TEMP 98.6
[2023-10-17 09:28] VITALS: BP 133/67; PULSE 74; RESP 20
[2023-10-17 10:32] LABS: BASO % 0.3 % (0-2.0); EOS % 5.4 % (0-4.5); HEMATOCRIT 28.1 % (35.4-49); HEMOGLOBIN 9.7 GM/dL (11.7-16.9); LYMPH % 11.9 % (8-40); MCH 29.2 pg (25.7-33.7); MCHC 34.5 g/dl (32.0-35.9); MEAN CELL VOLUME 84.6 fl (80-96); MEAN PLT VOLUME 7.8 fl (7.5-11.1); MONO % 9.6 % (3.8-10.2); NEUT % 72.8 % (42.8-82.8); PLATELET COUNT 276 10^3/uL (134-434); RBC 3.32 M/mm3 (4.00-5.60); RDW 13.3 % (11.9-15.9); WHITE BLOOD COUNT 4.7 K/mm3 (4.0-10.0)
[2023-10-17 10:52] LABS: POTASSIUM 4.4 mmol/L (3.5-5.1)
[2023-10-17 10:56] LABS: ALBUMIN 1.7 g/dl (3.4-5.0); BLOOD UREA NITROGEN 25.1 mg/dL (7-18); CALCIUM 8.2 mg/dL (8.5-10.1); MAGNESIUM 1.6 mg/dL (1.8-2.4)
[2023-10-17 10:59] LABS: CREATININE 1.4 mg/dL (0.55-1.3)
[2023-10-17 11:01] LABS: BILIRUBIN,TOTAL 0.4 mg/dL (0.2-1); TOT PROT 7.3 g/dl (6.4-8.2)
[2023-10-17] MEDS: AMOX TR/POT CLAV 500MG/125MG TABLETS (FP) PO SCH (12:58)
== END 2023-10-17 17:40 | disposition home health service (06) | DRG 813 ==
LOC: JER 21:42 → JERBED 23:45 → OBSVTOIN 23:45 → J8W 10-13 10:11
PROVIDERS: ADMIT Internal Medicine; ATTEND Nurse Practitioner Family
DX: T81.89XA Other complications of procedures, not elsewhere classified, initial encounter (principal); M62.82 Rhabdomyolysis; N17.9 Acute kidney failure, unspecified; E11.621 Type 2 diabetes mellitus with foot ulcer; I10 Essential (primary) hypertension; M14.671 Charcot's joint, right ankle and foot; Y83.9 Surgical procedure, unspecified as the cause of abnormal reaction of the patient, or of later complication, without mention of misadventure at the time of the procedure; E66.9 Obesity, unspecified; Z68.33 Body mass index [BMI] 33.0-33.9, adult
CPT/HCPCS: 36415; 73630-TC-RT-FY; 76775-TC; 80053; 81003; 82550; 82553; 82728; 82962; 83036; 83540; 83550; 83735; 84466; 85025; 85027; 85045; 85651; 86140; 87040; 87070; 87086; 87186; 87205; 93005; 93010; 99285-25; J0131

== ENCOUNTER 2024-01-09 08:41 | Observation (INO) | payer OTHER ==
[2024-01-09 10:11] LABS: BASO % 0.6 % (0-2.0); EOS % 4.9 % (0-4.5); HEMATOCRIT 33.1 % (35.4-49); HEMOGLOBIN 11.1 GM/dL (11.7-16.9); LYMPH % 12.6 % (8-40); MCH 28.2 pg (25.7-33.7); MCHC 33.7 g/dl (32.0-35.9); MEAN CELL VOLUME 83.8 fl (80-96); MEAN PLT VOLUME 7.8 fl (7.5-11.1); MONO % 7.7 % (3.8-10.2); NEUT % 74.2 % (42.8-82.8); PLATELET COUNT 354 10^3/uL (134-434); RBC 3.95 M/mm3 (4.00-5.60); RDW 14.2 % (11.9-15.9); WHITE BLOOD COUNT 9.5 K/mm3 (4.0-10.0)
[2024-01-09 10:15] LABS: INR 1.49 (0.83-1.09); PROTHROMBIN TIME (PATIENT) 16.6 SEC (9.7-13.0)
[2024-01-09 10:18] LABS: ACTIVATED PTT 35.1 SECONDS (25.2-36.5)
[2024-01-09 10:47] LABS: ERYTHROCYTE SEDIMENTATION RATE 102 mm/hr (0-20)
[2024-01-09 10:55] LABS: POTASSIUM 4.7 mmol/L (3.5-5.1)
[2024-01-09 10:56] LABS: CALCIUM 8.6 mg/dL (8.5-10.1)
[2024-01-09 10:57] LABS: ALBUMIN 2.4 g/dl (3.4-5.0); BLOOD UREA NITROGEN 22.8 mg/dL (7-18)
[2024-01-09 11:02] LABS: BILIRUBIN,TOTAL 0.5 mg/dL (0.2-1); TOT PROT 6.8 g/dl (6.4-8.2)
[2024-01-09] MEDS ORDERED: PIPERACILLIN/TAZOB 4.5 GM 4.5 GM/100 ML BAG IVPB ONE (11:27)
[2024-01-09] MEDS: PIPERACILLIN/TAZOB 4.5 GM 4.5 GM in DEXTROSE 5%-WATER 100 ML IVPB ONE (11:40)
[2024-01-09] MEDS: VANCOMYCIN PREMIX 1.75 GM 1,750 MG/350 ML PIGGYBACK IVPB ONE (12:49)
[2024-01-09 16:15] VITALS: BMI 34.8
[2024-01-09] MEDS: CEFTRIAXONE 2 GM in DEXTROSE 5%-WATER 100 ML IVPB SCH (16:38)
[2024-01-09] MEDS: INSULIN ASPART SLIDING SCALE (NOVOLOG) 1 VIAL SQ SCH (16:39)
[2024-01-09] MEDS: RIVAROXABAN 20 MG TABLET PO SCH (18:15)
[2024-01-09] MEDS: CARVEDILOL 12.5 MG TABLET (FP) PO SCH (21:14)
[2024-01-09] MEDS: ATORVASTATIN CA 40 MG TABLET (FP) PO SCH (21:15)
[2024-01-09] MEDS: BUDESONIDE/FORMETEROL FUMARATE 160/4.5 mcg INHALER IH SCH (21:38)
[2024-01-10 08:33] LABS: HEMOGLOBIN 11.1 GM/dL (11.7-16.9); MCH 28.8 pg (25.7-33.7); MCHC 34.8 g/dl (32.0-35.9); MEAN CELL VOLUME 82.8 fl (80-96); MEAN PLT VOLUME 7.2 fl (7.5-11.1); PLATELET COUNT 345 10^3/uL (134-434); RBC 3.86 M/mm3 (4.00-5.60); RDW 13.8 % (11.9-15.9); WHITE BLOOD COUNT 6.6 K/mm3 (4.0-10.0)
[2024-01-10 08:44] LABS: POTASSIUM 4.1 mmol/L (3.5-5.1)
[2024-01-10 08:45] LABS: CALCIUM 8.7 mg/dL (8.5-10.1)
[2024-01-10 08:46] LABS: ALBUMIN 2.3 g/dl (3.4-5.0)
[2024-01-10 08:49] LABS: CREATININE 0.8 mg/dL (0.55-1.3)
[2024-01-10 08:51] LABS: BILIRUBIN,TOTAL 0.3 mg/dL (0.2-1); TOT PROT 6.5 g/dl (6.4-8.2)
[2024-01-10] MEDS: amLODIPine BESYLATE 10 MG TABLET (FP) PO SCH (09:59)
[2024-01-10] MEDS ORDERED: RIVAROXABAN 20 MG TABLET PO SCH (18:00)
[2024-01-11 13:29] VITALS: BP 137/66; PULSE 67; RESP 20; TEMP 97.9
[2024-01-11] MEDS ORDERED: AMOX TR/POT CLAV 875MG/125MG TABLETS (FP) PO SCH (17:30)
== END 2024-01-11 17:26 | disposition home or self-care (01) ==
LOC: JER 08:41 → JERBED 10:42 → J7W 15:27
PROVIDERS: ADMIT Internal Medicine; ATTEND Nurse Practitioner Family
DX: L03.115 Cellulitis of right lower limb (principal); E11.621 Type 2 diabetes mellitus with foot ulcer; I10 Essential (primary) hypertension; E78.5 Hyperlipidemia, unspecified; K72.00 Acute and subacute hepatic failure without coma; I73.9 Peripheral vascular disease, unspecified; E11.610 Type 2 diabetes mellitus with diabetic neuropathic arthropathy; Z89.421 Acquired absence of other right toe(s); M86.9 Osteomyelitis, unspecified
CPT/HCPCS: 36415; 73630-TC-RT-FY; 80053; 82962; 83605; 85025; 85027; 85610; 85651; 85730; 86140; 86850; 86900; 86901; 93005; 93010; 96365; 96367; 96368; 99285-25; A6022; G0378; G0463-25; J3370